=== PATIENT | female | born 1930 | race Caucasian/White ===

== ENCOUNTER 2018-07-12 20:59 | Emergency (ER) | payer MEDICARE, OTHER ==
[~2018-07-12] VITALS: Ht 149.9 cm; Wt 54.0 kg
[~2018-07-12 20:59] MED LIST: ADVAIR 250-501 EACH INH; ALBUTEROL SULF8.5 GM INH; CALCIUM + VITA1 EAC1 PO; CALCIUM + VITA1 EAC2 PO; CARTIA XT240 MG PO; CHERATUSSIN AC118 ML PO; CIPROFLOXACIN500 MG PO; COUMADIN2.5 MG PO; COUMADIN5 MG PO; DETROL LA4 MG PO; DILTIAZEM 24HR180 MG PO; DILTIAZEM 24HR240 MG PO; DUONEB 0.5 MG-33 ML INH; FISH OIL300 MG PO; FUROSEMIDE40 MG PO; ICAPS AREDS SO1 EACH PO; ICAPS TABLET1 EACH PO; INSPIRATION1 EACH MC; IPRAT-ALBUT 0.5-3 ML INH; KEFLEX500 MG PO; LEVOFLOXACIN250 MG PO; MELATONIN1 MG PO; METOLAZONE5 MG PO; METOPROLOL SUC100 MG PO; METOPROLOL SUC200 MG PO; METOPROLOL TAR100 MG PO; METOPROLOL TART50 MG PO; MICRO-K10 MEQ PO; MIRALAX17 GM PO; MONTELUKAST SOD10 MG PO; MUCINEX600 MG PO; MULTI VITAMIN1 EACH PO; MULTIVITAMINS1 EAC7 PO; OMEPRAZOLE20 M1 PO; OXYBUTYNIN CHLOR5 MG PO; PERFOROMIS20 MCG/2 M INH; PLAQUENIL200 MG PO; POTASSIUM CHLO10 ME1 PO; POTASSIUM CHLO20 ME1 PO; PREDNISONE20 MG PO; PREDNISONE5 MG PO; PROLIA60 MG/1 ML SUB-Q; PULMICORT0.5 MG/2 M INH; VENTOLIN HFA18 GM INH; VITAMIN D32000 UNI1 PO; WARFARIN SODIU2.5 MG PO; WARFARIN SODIUM5 MG PO
[2018-07-12] MEDS ORDERED: LASIX40 MG PO (21:16)
--- NOTE | 2018-07-13 13:34 | EKG ---
[facility] [address] [facility] [place] [address] Signed Atrial fibrillation with premature ventricular or aberrantly conducted complexes Rightward axis Incomplete right bundle branch block ST \T\ T wave abnormality, consider lateral ischemia Prolonged QT Abnormal ECG When compared with ECG of 10-MAY-2018 21:20, Atrial fibrillation has replaced Atrial flutter QT has lengthened Confirmed by LATANYA RAJPUT DO ([id number]) on 07/13/2018 1:34:41 PM Electronically Signed By: LATANYA RAJPUT DO 07/13/18 1334 PATIENT NAME: ELODIA GONZALEZ JOSE M Electrocardiogram DATE OF : [birth year] PHYSICIAN: LATANYA RAJPUT DO REPORT #: [id number] REPORT IS CONFIDENTIAL AND NOT TO BE RELEASED WITHOUT AUTHORIZATION
== END 2018-07-12 22:34 | disposition home or self-care (01) ==
LOC: ED 20:59
DX: J45.901 Unspecified asthma with (acute) exacerbation (principal); I50.9 Heart failure, unspecified; Z87.891 Personal history of nicotine dependence; Z88.2 Allergy status to sulfonamides; Z79.899 Other long term (current) drug therapy
CPT/HCPCS: 71045; 93005; 93010; 99285-25

== ENCOUNTER 2018-07-17 19:39 | Inpatient (IN) | payer MEDICARE, OTHER ==
[~2018-07-17] VITALS: Ht 149.9 cm; Wt 48.6 kg
[~2018-07-17 19:39] MED LIST changes: +LASIX40 MG PO
--- OUTSIDE RECORDS SUMMARY | 2018-07-17 19:44 | XMS ---
PreManage Notification: ELODIA GONZALEZ Security Graining Operator Events No recent Security Events currently on file CRITERIA MET - [facility] - 2 Visits in 30 Days CARE PROVIDERS JUVE AGUIRRE Hospitalist 05/11/2018-Current PHONE: Unknown Jose Antonio Gonzales MD Primary Care Current PHONE: Unknown orjaved Case or Director Of Casino Marketing Current PHONE: Unknown Denise GONZALES Current PHONE: Unknown Dot has no Care Guidelines for this patient. Care History Medical/Surgical 05/11/2018 [facility] - Patient is currently established with [facility]. If patient is seen in the ED during business hours. Please contact CHWs at [facility]. Care Recommendation: This patient has had 5 or more Emergency Department visits in the last 12 months.\T\nbsp; Patient requires education on the scope and purpose of the ED as an acute care provider not a Primary Care Provider and should not be utilized for chronic conditions.\T\nbsp; These are guidelines and the provider should exercise clinical judgment when providing care. E.D. VISIT COUNT (12 MO.) 4 [facility]. TOTAL 4 NOTE: Visits indicate total known visits. ED/UCC VISIT TRACKING (12 MO.) 07/17/2018 19:39 [facility] [place] TYPE: Emergency COMPLAINT: - SOB 07/12/2018 20:59 [facility] [place] TYPE: Emergency COMPLAINT: - ASTHMA DIAGNOSES: - Shortness of breath - Other organic section technical lead (current) drug therapy - Allergy status to sulfonamides status - Unspecified asthma with (acute) exacerbation - Heart failure, unspecified - Personal history of nicotine dependence 05/10/2018 21:03 [facility] [place] TYPE: Emergency COMPLAINT: - SOB 04/18/2018 14:11 [facility] [place] TYPE: Emergency COMPLAINT: - SWOLLEN EXTREMITIES,NON INJURY DIAGNOSES: - Unspecified atrial fibrillation - long-term (current) use of anticoagulants - Allergy status to sulfonamides status - Other snf (current) drug therapy - Heart failure, unspecified - Dyspnea, unspecified - Chronic obstructive pulmonary disease, unspecified INPATIENT VISIT TRACKING (12 MO.) 05/10/2018 21:04 [facility] [place] TYPE: Medical Surgical COMPLAINT: - ACUTE ON CHRONIC DIASTOLIC DIAGNOSES: - Rheumatoid arthritis, unspecified - Unspecified atrial fibrillation - long-term (current) use of inhaled steroids - 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
[2018-07-17] MEDS ORDERED: METOLAZONE5 MG PO (21:25)
[2018-07-18] MEDS ORDERED: COUMADIN2.5 MG PO (07:19)
[2018-07-18] MEDS ORDERED: KETOCONAZOLE120 ML TOP (18:43)
[2018-07-18] MEDS ORDERED: LISINOPRIL2.5 MG PO (18:43)
[2018-07-18] MEDS ORDERED: IPRAT-ALBUT 0.5-3 ML INH (18:46)
--- NOTE | 2018-07-18 23:18 | EKG ---
[facility] [address] [facility] [place] [address] Signed Atrial fibrillation Rightward axis Incomplete right bundle branch block Cannot rule out Anterior infarct , age undetermined ST \T\ T wave abnormality, consider inferolateral ischemia Abnormal ECG When compared with ECG of 12-JUL-2018 21:04, QT has shortened Confirmed by DERRICK ANTONIO MD ([id number]) on 07/18/2018 11:18:09 PM Electronically Signed By: DERRICK ANTONIO MD 07/18/18 2318 PATIENT NAME: ELODIA GONZALEZ JOSE M Electrocardiogram DATE OF : [birth year] PHYSICIAN: DERRICK ANTONIO MD REPORT #: [id number] REPORT IS CONFIDENTIAL AND NOT TO BE RELEASED WITHOUT AUTHORIZATION
--- NOTE | 2018-07-19 12:09 | CONS ---
[facility] [address] [place], [place] [address] Signed DATE OF CONSULTATION: 07/17/2018 TIME: 10:45 p.m. CONSULTING PHYSICIAN: Gabo Garsia MD REQUESTING PHYSICIAN: Dr. Conner. PROBLEM: Need for central venous access for right lower lobe pneumonia and sepsis. 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 She worked at [employer] for over 31 years. She has long since retired. She presented to the emergency room with sepsis including hypotension and tachycardia, found on chest x-ray to have a right lower lobe pneumonia. Pressors and other agents are anticipated for her care. She is noted to have atrial fibrillation and is chronically anticoagulated with Coumadin. Her INR exceeds 3.5 by report. PAST MEDICAL HISTORY: Significant primarily for progressive frailty. She remains alert and oriented, however. She is accompanied by her son, Clifford. REVIEW OF SYSTEMS: She has some shortness of breath, but no abdominal pain. She has had no hemoptysis. PHYSICAL EXAMINATION: GENERAL: Impressively frail and tiny 88-year-old white woman who looks to be alert and oriented despite her clinical evidence of sepsis. She is unable to move her head to the right or left any degree. She is markedly cachectic. Clavicles and muscles of the neck are easily demonstrated. She has no hoarseness. ABDOMEN: With poor abdominal tone, but no sign of tenderness. 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 Chest x-ray is reviewed, showing a right lower lobe pneumonia. No sign of pneumothorax. ASSESSMENT: Central venous catheterization has been requested by Dr. Conner for pressor agents and Electronically Signed By: GABO GARSIA MD 07/19/18 1209 PATIENT NAME: ELODIA GONZALEZ CONSULTATION DATE OF : [birth year] REPORT #: [id number] PHYSICIAN: GABO GARSIA MD PCP: JUVE AGUIRRE MD REPORT IS CONFIDENTIAL AND NOT TO BE RELEASED WITHOUT AUTHORIZATION [facility] [address] [place], [place] [address] Signed other interventions. This may be challenging considering her elevated INR for a subclavian approach and even a jugular approach given her inability to move her neck to the right or left. The risks of bleeding, infection, and so forth were reviewed with the patient and her son who accompanies her. They understand and wished to proceed. MD MARTINE Hedrick/COREY /[id number] cc: MD Keshia Oneill MD Lohith Veerappa Reddy, MD Copies: JUVE AGUIRRE MD, KELLY DEAN MD REDDY, LOHITH VEERAPPA MD ~ Electronically Signed By: GABO GARSIA MD 07/19/18 1209 PATIENT NAME: ELODIA GONZALEZ JOSE M CONSULTATION DATE OF : [birth year] REPORT #: [id number] PHYSICIAN: GABO GARSIA MD PCP: JUVE AGUIRRE MD REPORT IS CONFIDENTIAL AND NOT TO BE RELEASED WITHOUT AUTHORIZATION
--- NOTE | 2018-07-19 12:09 | OR ---
[facility] [address] [place], [place] [address] Signed DATE OF OPERATION: 07/17/2018 SURGEON: Gabo Garsia MD PREOPERATIVE DIAGNOSES: 1. Sepsis related to right lower lobe pneumonia. 2. Cachexia. 3. Excessive anticoagulation with Coumadin, INR greater than 3.5. POSTOPERATIVE DIAGNOSES: 1. Sepsis related to right lower lobe pneumonia. 2. Cachexia. 3. Excessive anticoagulation with Coumadin, INR greater than 3.5. PROCEDURE: Right internal jugular central venous catheterization (Arrow Blue Tip triple-lumen catheter placement). ANESTHESIA: 1% lidocaine. INDICATIONS: This 88-year-old white woman has sepsis with hypotension related to right lower lobe pneumonia. She is markedly frail and thin. She is unable to move her face to the right or left for reasons that are not entirely clear. The risks of bleeding, infection, pneumothorax, and so forth were reviewed with her and her son who attends to her (Clifford Gonzalez). She understands as does he and they wished to proceed. FINDINGS: Initial puncture of the right neck demonstrated arterial blood consistent with carotid puncture, however it was easily identified and pressure applied to the area without hematoma or other problem. Subsequent access attempt showed dark, nonpulsatile blood consistent with the right internal jugular vein. A flexible Arrow Blue Tip triple-lumen catheter was passed without problem. Aspiration on the distal port on completion of procedure showed dark, nonpulsatile blood. A postprocedure chest x-ray is pending. DESCRIPTION OF PROCEDURE: The patient was placed in mild Trendelenburg position. Her neck and clavicle area prepared with chlorhexidine solution and draped sterilely. Lidocaine 1% was injected over the sternocleidomastoid muscle. Palpation on the medial aspect of the right Electronically Signed By: GABO GARSIA MD 07/19/18 1209 PATIENT NAME: ELODIA GONZALEZ OPERATIVE REPORT DATE OF : [birth year] REPORT #: [id number] PHYSICIAN: GABO GARSIA MD PCP: JOHN AGUIRRE MD REPORT IS CONFIDENTIAL AND NOT TO BE RELEASED WITHOUT AUTHORIZATION [facility] [address] [place], [place] [address] Signed sternocleidomastoid muscle demonstrated the carotid. Using a Seldinger technique laterally and through the substance of the sternocleidomastoid muscle, careful puncture was undertaken noting blood that initially appeared somewhat dark. Upon removal of the syringe from the needle, pulsatile bleeding was noted consistent with carotid puncture and on that basis the needle was carefully removed and pressure applied to the area for approximately 5 minutes. Re-examination showed no sign of expanding hematoma or other issue. Another attempt was made with adjustment of the needle ultimately finding the right jugular vein. Dark, nonpulsatile blood was noted. A flexible J-wire was passed down the needle and the needle was removed. The site was incised and tied with a blue dilator and a previously inspected and irrigated Arrow Blue Tip triple-lumen catheter passed over the wire without problem. The wire was removed. Aspiration on the distal port showed dark, nonpulsatile blood. That site was flushed with sterile saline, withdrawn, and secured to the skin with nylon suture. An anti-infective disk was applied as was an OpSite. A postprocedure chest x-ray is pending. Blood loss in aggregate was about 10 mL. MD MARTINE Hedrick/MODL /[id number] cc: MD John Easley MD Kelly Dean Pridgen, MD Copies: DERRICK ANTONIO MD, MALCOLM MD PRIDGEN, KELLY DEAN MD ~ Electronically Signed By: GABO GARSIA MD 07/19/18 1209 PATIENT NAME: ELODIA GONZALEZ JOSE M OPERATIVE REPORT DATE OF : [birth year] REPORT #: [id number] PHYSICIAN: GABO GARSIA MD PCP: JOHN AGUIRRE MD REPORT IS CONFIDENTIAL AND NOT TO BE RELEASED WITHOUT AUTHORIZATION
[2018-07-24] MEDS ORDERED: LEVOFLOXACIN250 MG PO (10:27)
== END 2018-07-24 14:25 | disposition home or self-care (01) | DRG 871 ==
LOC: ED 19:39 → CCU 22:26 → MS 07-21 18:26
PROVIDERS: ADMIT Internal Medicine
PROC: 02HV33Z Insertion of Infusion Device into Superior Vena Cava, Percutaneous Approach (ICD-10-PCS; principal; 2018-07-17)
DX: A41.01 Sepsis due to Methicillin susceptible Staphylococcus aureus (principal); R65.21 Severe sepsis with septic shock; I50.33 Acute on chronic diastolic (congestive) heart failure; J15.6 Pneumonia due to other Gram-negative bacteria; R64 Cachexia; J44.0 Chronic obstructive pulmonary disease with (acute) lower respiratory infection; J96.11 Chronic respiratory failure with hypoxia; D68.32 Hemorrhagic disorder due to extrinsic circulating anticoagulants; I95.9 Hypotension, unspecified; I11.0 Hypertensive heart disease with heart failure; I35.0 Nonrheumatic aortic (valve) stenosis; I48.2 Chronic atrial fibrillation; Z79.01 Long term (current) use of anticoagulants; M06.9 Rheumatoid arthritis, unspecified; J47.9 Bronchiectasis, uncomplicated; A41.53 Sepsis due to Serratia; R13.12 Dysphagia, oropharyngeal phase; E80.6 Other disorders of bilirubin metabolism; R53.81 Other malaise; Z66 Do not resuscitate; Z99.81 Dependence on supplemental oxygen; Z79.52 Long term (current) use of systemic steroids; Z87.891 Personal history of nicotine dependence; T45.515A Adverse effect of anticoagulants, initial encounter
CPT/HCPCS: 36415; 71045; 80048; 80053; 80202; 83605; 83735; 83880; 84484; 85025; 85610; 85730; 87040; 87070; 87077; 87186; 87205; 87449; 87502; 87899; 92526; 92610; 93005; 93010; 94640; 94667; 94668; 96365; 96367; 96375; 97110; 97116; 97162; 97167; 97530; 97535; 99285-25; J0456; J0692; J1720; J2370; J2405; J2543; J3370; J3475; J7040; J7060; J7120; J7512

== ENCOUNTER 2018-09-13 19:14 | Inpatient (IN) | payer MEDICARE, OTHER ==
[~2018-09-13] VITALS: Ht 149.9 cm; Wt 43.8 kg
--- OUTSIDE RECORDS SUMMARY | ~2018-09-13 | XMS | Encounter Summary ---
Demographics + + + | Address | [address] | | | [place] [address] | + + + | Home Phone | | + + + | Preferred Language | Unknown | + + + | Marital Status | | + + + | Taoism Affiliation | 1077 | + + + | Race | Unknown | + + + | Ethnic Group | Unknown | + + + Author + + + | Author | [facility] | | | and [place] | + + + | Organization | [facility] | | | and [...] Team Providers + +------+ + | Care Lumber Puller Name | Role | Phone | + [...] [address] | | | | | [phone] | [place] [address] | | +--------+ + + + + [...] Description | +--------+---------+ + + + | 09/29/ | Office | Pulmonology | Vikram Patel, | | | 2018 | Visit | | MD Mohamud [place] | | | | | | Balw[place], Level II | | | | | | [place] | | | | | | [address] | | | | | | | [...] for this | | | e | 2009 PST | | procedure are in the | | | | | | results section. | + +--------+ + + + in this encounter Results XR Chest AP Portable (07/17/20182009) + + + | Narrative | Performed [...]
--- OUTSIDE RECORDS SUMMARY | ~2018-09-13 | XMS | Encounter Summary ---
Demographics + + + | Address | [address] | | | [place] [address] | + + + | Home Phone | | + + + | Preferred Language | Unknown | + + + | Marital Status | | + + + | Sikhism Affiliation | 1077 | + + + | Race | Unknown | + + + | Ethnic Group | Unknown | + + + Author + + + | Author | [facility] [employer] | + + + | Organization | [facility] [facility] | + + + | Address [...] Team Providers + +------+ + | Care Securities Broker Name | Role | Phone | + [...] + + | 08/16/ | Office | [facility] | Minerva Mosher, | Chronic atrial | | 2019 | Visit | Cardiology [place] | [address] | fibrillation (HCC) | | | | [address] | [address] Blanco, | (Primary Dx); | | | | [facility] [address] | [place] [address] | Rheumatoid arthritis | | | | [place] [address] | [phone] | involving multiple | | | | [phone] | | sites with positive | | | | | | rheumatoid factor | | | | | | (HCC); Essential | | | | | | hypertension; | | | | | | Chronic diastolic | | | | | | congestive heart | | | | | | failure ([facility]); | | | | | | Severe [...] to use metolazone. Previously was admitted to [facility] on May 10-2017 secondary to [...] Patient was seen after being discharged from [facility] due to decompensated hermes estive heart failure. [...] by mouth 2 (two) times daily. Nebulizer (expert medical writer) 1 each by Does not apply route [...] Reactions Diphenhydramine Hallucinations Developed hallucinations when taking vlxk-usi-xkkgcdi sleep medications with diphenhydram ine Oxybutynin Hallucinations [...] problems. 1. Chronic diastolic congestive heart failure [facility] class III, stage C. Currently euvolemic. 2. Symptomatic severe aortic stenosis. 3. Significant visual hallucination. Improved. 4. Significant pulmonary disease with significant decrease in DLCO. Patient is on home O2 a t nighttime. 5. Recent bacterial pneumonia with recurrent worsening cough. 6. 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 7. Chronic atrial fibrillation [...] | | | | | | [place] [address] | | | | | | [phone] | | | | | | | [...]
--- OUTSIDE RECORDS SUMMARY | ~2018-09-13 | XMS | Encounter Summary ---
Demographics + + + | Address | [address] | | | [place] [address] | + + + | Home Phone | | + + + | Preferred Language | Unknown | + + + | Marital Status | | + + + | Judaism Affiliation | 1077 | + + + | Race | Unknown | + + + | Ethnic Group | Unknown | + + + Author + + + | Author | [facility] | | | and [place] | + + + | Organization | [facility] | | | and [...] Team Providers + +------+ + | Care Honest John Rocket Crew Member Name | Role | Phone | + +------+ + | John Barbosa MD | PCP | | + +------+ + Encounter Details +--------+ + + + + | Date | Type | Department | Care Team | Description | +--------+ + + + + | 07/12/ | Imaging | [facility] | Provider, | | | 2019 | Exam | [facility] EXTER[facility] | MD [address] | | | | | IMAGING | [address] | | | | | [phone] | [place] [address] | | +--------+ + + + + [...] 2018 | Visit | | MD Mohamud [place] | | | | | | Balwinder, Level II | | | | | | [place] | | | | | | [phone] | | | | | | | | +--------+---------+ + + + as of this encounter Procedures + +--------+ + + + | Procedure Name | Priori | Date/Time | Associated Diagnosis | Comments | | | ty | | | | + +--------+ + + + | XR CHEST AP PORTABLE | Routin | 07/12/2018 | | Results for this | | | e | 2140 PST | | procedure are in the | | | | | | results section. | + +--------+ + + + in this encounter Results XR Chest AP Portable (07/12/2018 2140) + + + | Narrative | Performed [...]
--- OUTSIDE RECORDS SUMMARY | ~2018-09-13 | XMS | Encounter Summary ---
Demographics + + + | Address | [address] | | | [place] [address] | + + + | Home Phone | | + + + | Preferred Language | Unknown | + + + | Marital Status | | + + + | Gnosticist Affiliation | 1077 | + + + | Race | Unknown | + + + | Ethnic Group | Unknown | + + + Author + + + | Author | [facility] | | | and [place] | + + + | Organization | [facility] | | | and [...] Team Providers + +------+ + | Care Land Management Forester Name | Role | Phone | + +------+ + | John Barbosa MD | PCP | | + +------+ + Encounter Details +--------+ + + + + | Date | Type | Department | Care Team | Description | +--------+ + + + + | 07/27/ | Ancillary | [facility] | Provider, | | | 2019 | Orders | MED CTR EXTERNAL | MD [address] | | | | | IMAGING | [address] | | | | | [phone] | [place] [address] | | +--------+ + + + + [...] | 2018 | Visit | | MD Oneida Jacobo | | | | | | [place], Level II | | | | | | [place] | | | | | | [address] | | | | | | | | +--------+---------+ + + + as of this encounter Results XR Chest AP Portable (07/17/20183) + + + | Narrative | Performed [...] | | | + +---------+ + + XR Chest AP Portable (07/17/20182009) + + [...] | | | + +---------+ + + XR Chest AP Portable (07/12/20182139) + + + | Narrative | Performed [...] | | | + +---------+ + + XR Chest AP Portable (05/10/20182209) + + + | Narrative | Performed [...] | | | + +---------+ + + XR Chest PA or AP (04/18/2018 1540) + + + | Narrative | Performed [...]
--- OUTSIDE RECORDS SUMMARY | ~2018-09-13 | XMS | Encounter Summary ---
Demographics + + + | Address | [address] | | | [place] [address] | + + + | Home Phone | | + + + | Preferred Language | Unknown | + + + | Marital Status | | + + + | Sikhism Affiliation | 1077 | + + + | Race | Unknown | + + + | Ethnic Group | Unknown | + + + Author + + + | Author | [facility] | | | and [place] | + + + | Organization | [facility] | | [...] Team Providers + +------+ + | Care Cook Dessert Name | Role | Phone | + [...] [address] | | | | | [phone] | [place] [address] | | +--------+ + + + + [...] 2018 | Visit | | MD Mohamud [place] | | | | | | Balwinder, Level II | | | | | | [place] | | | | | | [address] | | | | | | | [...]
--- OUTSIDE RECORDS SUMMARY | ~2018-09-13 | XMS | Clinical Summary ---
Demographics + + + | Address | [address] | | | [place] [address] | + + + | Home Phone | | + + + | Preferred Language | Unknown | + + + | Marital Status | Single | + + + | Quaker Affiliation | Unknown | + + + | Race | Unknown | + + + | Ethnic Group | Other Race | + + + Author + + + | Author | [facility] | + + + | Organization | [facility] | + + + | Address | Unknown | + + + | Phone | Unavailable | + + + Care Team Providers + +------+ + | Care Digital Associate Name | Role | Phone | + +------+ + PP | Unavailable | + +------+ + Source Comments TYLER is fully live on both [facility] Ambulatory and [facility] InPatient.[facility] Allergies Not on File Current Medications Not [...] | Medica | +- | [address] | | | RE A & | | re | [phone] | [place] [address] | | | B | | | [...] | | al/Fam | | 1930 | [phone] | [place] [address] | | | [place] | | | [address] | | + +--------+ +--------+ + +"
--- OUTSIDE RECORDS SUMMARY | ~2018-09-13 | XMS | Encounter Summary ---
Demographics + + + | Address | [address] | | | [place] [address] | + + + | Home Phone | | + + + | Preferred Language | Unknown | + + + | Marital Status | | + + + | Holiness Affiliation | 1077 | + + + | Race | Unknown | + + + | Ethnic Group | Unknown | + + + Author + + + | Author | [facility] | + + + | Organization | [facility] | + + + | Address [...] Team Providers + +------+ + | Care Textile Designer Name | Role | Phone | + [...] records/ labs) | | | | [address] | | | | | | [place] | | | | | | [address] | | | | | | [phone] | | | +--------+ + + + [...] | | | | | | [place] [address] | | | | | | [phone] | | | | | | | | +--------+---------+ + + + as of this encounter Visit Diagnoses Not on filein this encounter"
--- OUTSIDE RECORDS SUMMARY | ~2018-09-13 | XMS | Encounter Summary ---
Demographics + + + | Address | [address] | | | [place] [address] | + + + | Home Phone | | + + + | Preferred Language | Unknown | + + + | Marital Status | | + + + | Yazidi Affiliation | 1077 | + + + | Race | Unknown | + + + | Ethnic Group | Unknown | + + + Author + + + | Author | [facility] | | | and [place] | + + + | Organization | [facility] | | [...] Team Providers + +------+ + | Care Roving Machine Operator Name | Role | Phone | [...] [address] | | | | | [phone] | [place] [address] | | +--------+ + + + + [...] 2018 | Visit | | MD Mohamud [place] | | | | | | Balwinder, Level II | | | | | | [place] | | | | | | [address] | | | | | | | [...]
--- OUTSIDE RECORDS SUMMARY | ~2018-09-13 | XMS | Clinical Summary ---
Demographics + + + | Address | [address] | | | [place] [address] | + + + | Home Phone | | + + + | Preferred Language | Unknown | + + + | Marital Status | | + + + | Evangelical Affiliation | 1077 | + + + [...] Team Providers + +------+ + | Care [place] Leverman Name | Role | Phone | + +------+ + | John Barbosa MD | PP | | + +------+ + Allergies + + + + + + | Active Allergy | Reactions | Severity | Noted | Comments | | | | | Date | | + + + + + + | Diphenhydramine | Other (See Comments) | High | 10/15/19 | Hallucinations | | | | | 17 | | + + + + + + | Oxybutynin | Other (See Comments) | High | 04/27/20 | Hallucinations | | | | | 17 | | + + + + + + | Sulfa Antibiotics | Nausea Only, Other | Low | 06/02/20 | Headache | | | (See Comments) | | 12 | | + + + + + + Current Medications + + + +---------+------+------+-------+ | Prescription | Sig. | Disp. | Refills | Star | End | Statu | | | | | | t | Date | s | | | | | | Date | | | + + + +---------+------+------+-------+ | predniSONE | Take 5 mg by mouth | | | 02/25 | | Activ | | (DELTASONE) 5 mg | Daily. | | | 08/16 | | e | | tablet | | | | 12 | | | + + + +---------+------+------+-------+ | CARTIA XT 240 MG | Take 240 mg by mouth | | | 01/0 | | Activ | | 24 hr capsule | Daily. | | | 03/16 | | e | | | | | | 17 | | | + + + +---------+------+------+-------+ | furosemide (LASIX) | Take 40 mg by mouth | | | | | Activ | | 40 mg tablet | Daily. | | | | | e | + + + +---------+------+------+-------+ | Multiple | Take 1 capsule by | | | | | Activ | | Vitamins-Minerals | mouth 2 times daily. | | | | | e | | (ICAPS AREDS 2) CAPS | | | | | | | + + + +---------+------+------+-------+ | metoprolol | Take 200 mg by mouth | | | 11/26 | | Activ | | succinate | Daily. | | | 01/13 | | e | | (TOPROL-XL) 200 mg | | | | 17 | | | | ER tablet | | | | | | | + + + +---------+------+------+-------+ | denosumab (PROLIA) | Inject 60 mg under | | | | | Activ | | 60 mg/mL injection | the skin Every 6 | | | | | e | | | months. | | | | | | + + + +---------+------+------+-------+ | warfarin | Take 2.5 mg by mouth | | | | | Activ | | (COUMADIN) 2.5 mg | Daily. | | | | | e | | tablet | | | | | | | + + + +---------+------+------+-------+ | acetaminophen | Take 500 mg by mouth | | | | | Activ | | (TYLENOL) 500 mg | Daily as needed for | | | | | e | | tablet | Pain. | | | | | | + + + +---------+------+------+-------+ | | Take 1 tablet by | | | | | Activ | | dextromethorphan-gua | mouth Twice daily | | | | | e | | ifenesin (MUCINEX | as needed. | | | | | | | DM) 30-600 mg per ER | | | | | | | | tablet | | | | | | | + + + +---------+------+------+-------+ | melatonin 1 mg | Take 1 mg by mouth | | | | | Activ | | TABS | nightly. | | | | | e | + + + +---------+------+------+-------+ | Cholecalciferol | Take 2,000 Units by | | | | | Activ | | (VITAMIN D-3) 2000 | mouth Daily. | | | | | e | | units CAPS | | | | | | | + + + +---------+------+------+-------+ | | Take 3 ml in | 540 mL | 11 | 04/2 | | Activ | | albuterol-ipratropiu | nebulizer every 4 | | | 0/20 | | e | | m (DUONEB) 2.5-0.5 | hours as needed for | | | 18 | | | | mg/3 mL | shortness of breath. | | | | | | | SOLNIndications: | Lifetime. Dx: J44.9 | | | | | | | Uncomplicated severe | | | | | | | | persistent asthma | | | | | | | + + + +---------+------+------+-------+ | famotidine | Take 1 tablet by | | | 08/0 | | Activ | | (PEPCID) 40 MG | mouth Daily. | | | 2/20 | | e | | tablet | | | | 18 | | | + + + +---------+------+------+-------+ | metOLazone | Take 1 tablet by | | | 07/0 | | Activ | | (ZAROXOLYN) 5 MG | mouth nightly. 1-2 | | | 120 | | e | | tablet | tablets | | | 18 | | | + + + +---------+------+------+-------+ | potassium chloride | Take 1 tablet by | | | 07/3 | | Activ | | 20 mEq CR tablet | mouth 2 times daily. | | | 0/20 | | e | | | | | | 18 | | | + + + +---------+------+------+-------+ | VENTOLIN HFA 108 | Inhale 2 puffs into | 1 | 3 | 08/2 | | Activ | | (90 Base) MCG/ACT | the lungs every 4 | Inhaler | | 7/20 | | e | | inhaler | hours as needed for | | | 18 | | | | | Wheezing or | | | | | | | | Shortness of Breath. | | | | | | + + + +---------+------+------+-------+ | PERFOROMIST 20 | USE 1 VIAL IN | 120 | 3 | 01/0 | | Activ | | MCG/2ML nebulizer | NEBULIZER EVERY 12 | vial | | 2/20 | | e | | solution | HOURS | | | 19 | | | + + + +---------+------+------+-------+ | budesonide | USE 1 VIAL IN | 120 | 3 | 01/0 | | Activ | | (PULMICORT) 0.5 mg/2 | NEBULIZER EVERY 12 | vial | | 2/20 | | e | | mL nebulizer | HOURS | | | 19 | | | | solutionIndications: | | | | | | | | Severe persistent | | | | | | | | asthma without | | | | | | | | complication | | | | | | | + + + +---------+------+------+-------+ Active Problems + + + | Problem | Noted Date | + + + | Dyspnea on exertion | 09/02/2017 | + + + | Severe aortic stenosis | 03/14/2017 | + + + + + | Last Assessment & Plan: | + + + + + | RV dysfunction | 03/14/2017 | + + + | Tricuspid regurgitation | 03/14/2017 | + + + | CHF (congestive heart failure) (HCC) | 02/20/2016 | + + + | Uncomplicated severe persistent asthma | 01/09/2016 | + + + | Hypertension | 01/10/2014 | + + + + + | Overview: Last Assessment & Plan: HTN, controlled, continue | | current meds at current dose (diltiazem, furosemide, metoprolol). | | Labs reviewed with patient.Lab, 06/19/2015: Trop-T: <0.010, | | BNP: 870 AST/ALT: 63/63, Alb: 4.0, K: | | 4.0, BUN/Cr: 17/0.6, glu: 215, M.1 | | INR: 2.1, WBC: 6.0, H/H: 14.3/44.5, plt: 210 | | ABG (O2 at 2L/min): pH: 7.43, pO2: 76, pCO2: 38, O2 sat: | | 95% Lab, 06/20/2015: T Chol: 148, LDL-Chol: 66, HDL-Chol: 68, | | [facility], 07/02/2015: Liver enzymes NML, K: 4.9, BUN/Cr: | | 28/0.8 (GFR 67), glu: 120 BNP: 237, | | TSH: 1.13, WBC: 16.5, H/H: 15.1/46.3, plt: 168 | + + + +---+ | Pulmonary disease | | + +---+ + + | Last Assessment & Plan: | + + + +---+ | TIREDNESS | | + +---+ | BRONCHIECTASIS | | + +---+ | WEIGHT LOSS, ABNORMAL | | + +---+ | ATRIAL FIBRILLATION | | + +---+ | Rheumatoid arthritis (HCC) | | + +---+ + + | Overview: On chronic steroids. | + + + +---+ | SINUS BRADYCARDIA | | + +---+ Resolved Problems + + + + | Problem | Noted | Resolved | | | Date | Date | + + + + | Obstructive sleep apnea | 03/14/20 | | | | 17 | 7 | + + + + | Shortness of breath on exertion | 10/10/19 | | | | 14 | 6 | + + + + | Bronchiectasis with acute exacerbation (HCC) | | | | | | 5 | + + + + | Obstructive lung disease (HCC) | | | | | | 7 | + + + + Encounters +--------+ + + + + | Date | Type | Specialty | Care Team | Description | +--------+ + + + + | 07/27/ | Ancillary | | Provider, | | | 2019 | Orders | | Evaristo, | | +--------+ + + + + | 07/17/ | Imaging | | Provider, | | | 2018 | Exam | | Evaristo, | | +--------+ + + + + | 07/17/ | Imaging | | Provider, | | | 2019 | Exam | | Historical, | | +--------+ + + + + | 07/12/ | Imaging | | Provider, | | | 2019 | Exam | | Historical, MD | | +--------+ + + + + | 06/28/ | Refill | | Vikram Patel, | Medication Refill | | 2019 | | | MD | | +--------+ + + + + from Last 3 Months Immunizations + + + + | Name | Dates Previously Given | Next Due | + + + + | INFLUENZA 65 Y OR >, | 04/11/2017, 04/05/2016, 04/13/2015 | | | TRIVALENT HIGH-DOSE | | | + + + + | INFLUENZA PF 18 Y OR | 04/03/2014, 03/27/2013, 04/07/2012, | | | >,TRIVALENT | 02/06/2012 | | | RECOMBINANT | | | + + + + | PNEUMOCOCCAL | 04/25/2014 | | | CONJUGATE 13-VALENT | | | | (PCV13) | | | + + + + | PNEUMOCOCCAL | 10/06/2010 | | | POLYSACCHARIDE | | | | 23-VALENT (PPSV23) | | | + + + + | ZOSTER, 1 DOSE | 05/27/2012 | | | (ZOSTAVAX) | | | + + + + Family History + + +------+ + | Medical History | Relation | Name | Comments | + + +------+ + | Diabetes | Brother | | | + + +------+ + | Other (see comment) | Brother | | kalenver | + + +------+ + | Cancer | Father | | pancreatic | + + +------+ + | Asthma | Mother | | | + + +------+ + | Other (see comment) | Mother | | emphysema/renal cell carcinoma/renal | | | | | disease | + + +------+ + | Emphysema | Other | | family hx of | + + +------+ + + +------+ + + | Relation | Name | Status | Comments | + +------+ + + | Brother | | | | + +------+ + + | Brother | | | | + +------+ + + | Father | | | | + +------+ + + | Mother | | | | + +------+ + + | Other | | | | + +------+ + + Social [...] | | | + +---+---+---+ + + | Tobacco Cessation: Counseling Given: No | + + + + +---------+ + | Alcohol [...] + + + | Blood Pressure | 110/78 | 02/03/20181543 PDT | + + + + | Pulse | 90 | 02/03/20181543 PDT | + + + + | Temperature | 36.7 C (98 F) | 02/20/20161052 PDT | + + + + | Respiratory Rate | 16 | 02/20/2016 1053 PDT | + + + + | Oxygen Saturation | 93% | 02/03/20181543 PDT | + + + + | Inhaled Oxygen | - | - | | Concentration | | | + + + + | Weight | 49.2 kg (108 lb 7.5 | 02/03/20181543 PDT | | | oz) | | + + + + | Height | 149.9 cm (4' 11") | 02/03/20181543 PDT | + + + + | Body Mass Index | 21.91 | 02/03/20181543 PDT | + + + + Plan of Treatment +--------+---------+ + + + | Date | Type | Specialty | Care Team | Description | +--------+---------+ + + + | 09/29/ | Office | | Vikram Patel, | | | 2019 | Visit | | MD Oneida Jacobo | | | | | | Balwinder, Level II | | | | | | [place] | | | | | | [address] | | | | | | | | +--------+---------+ + + + + + + + + | Health Maintenance | Due Date | Last Done | Comments | + + + + + | Vaccine: Zoster (2 | | 05/27/2012, 09/13/2011 | | | of 3) | 3 | | | + + + + + | Adult Annual | | | | | Wellness Visit | 5 | | | + + + + + | Vaccine: | | 03/09/2012 | | | Dtap/Tdap/Td (2 - | 2 | | | | Td) | | | | + + + + + | Vaccine: | Completed | 04/25/2014, 10/06/2010 | | | Pneumococcal 65+ | | | | | Low/Medium Risk | | | | + + + + + | Vaccine: Influenza | Completed | 03/07/2018, 04/11/2017, | | | | | 03/30/2017, Additional history | | | | | [...] section. | + +--------+ + + + from Last 3 Months Results XR Chest AP Portable (07/17/2018 2245)Only the most recent of 3 results within the time per iod is included. + + + | Narrative | Performed [...] | | | + +---------+ + + from Last 3 Months Insurance + +--------+ +--------+ +---------+ | Payer | Benefi | Subscriber | Type | Phone | Address | | | t Plan | ID | | | | | | / | | | | | | | Group | | | | | + +--------+ +--------+ +---------+ | MEDICARE | MEDICA | [id number] | Medica | [phone] | | | | RE | | re | [phone] | | | | PART A | | | | | | | AND B | | | | | + +--------+ +--------+ +---------+ | MEDICARE SUPPLEMENT | MEDICA | [id number] | Indemn | [phone] | | OTHER | RE | | ity | [phone] | | | | SUPPLE | | | | | | | MENT | | | | | | | OTHER | | | | | + +--------+ +--------+ +---------+ + +--------+ +--------+ + + | Guarantor Name | Accoun | Relation to | Date | Phone | Billing Address | | | t Type | Patient | of | | | | | | | | | | + +--------+ +--------+ + + | ISABEL GONZALEZ | Person | Self [birth year] | Home: | [address] | | | al/Fam | | 1930 | [phone] | [place] | | | [place] | | | [phone] | [address] | + +--------+ +--------+ + +
--- OUTSIDE RECORDS SUMMARY | ~2018-09-13 | XMS | Encounter Summary ---
Demographics + + + | Address | [address] | | | [place] [address] | + + + | Home Phone | | + + + | Preferred Language | Unknown | + + + | Marital Status | | + + + | Religion Affiliation | 1077 | + + + | Race | Unknown | + + + | Ethnic Group | Unknown | + + + Author + + + | Author | [facility] | | | and [place] | + + + | Organization | [facility] | | | and [...] Team Providers + +------+ + | Care Color Corrector Name | Role | Phone | + [...] [address] | | | | | [phone] | [place] [address] | | +--------+ + + + + [...] 2018 | Visit | | MD Mohamud Butler | | | | | | Balwinder, Level II | | | | | | [place] | | | | | | [address] | | | | | | | [...]
--- OUTSIDE RECORDS SUMMARY | ~2018-09-13 | XMS | Encounter Summary ---
Demographics + + + | Address | [address] | | | [place] [address] | + + + | Home Phone | | + + + | Preferred Language | Unknown | + + + | Marital Status | | + + + | Holiness Affiliation | 1077 | + + + | Race | Unknown | + + + | Ethnic Group | Unknown | + + + Author + + + | Author | [facility] | + + + | Organization | [facility] | + + + | Address [...] Team Providers + +------+ + | Care Fish Boning Machine Feeder Name | Role | Phone | + [...] 2019 | on Only | Cardiology Anastasiya Viarmontes CMA | records/ labs) | | | | [address] | | | | | | [place] | | | | | | [address] | | | | | | [phone] | | | +--------+ + + + [...] | | | | | | [place] [address] | | | | | | [phone] | | | | | | | | +--------+---------+ + + + as of this encounter Visit Diagnoses Not on filein this encounter"
--- OUTSIDE RECORDS SUMMARY | ~2018-09-13 | XMS | Encounter Summary ---
Demographics + + + | Address | [address] | | | [place] [address] | + + + | Home Phone | | + + + | Preferred Language | Unknown | + + + | Marital Status | | + + + | Catholic Affiliation | 1077 | + + + | Race | Unknown | + + + | Ethnic Group | Unknown | + + + Author + + + | Author | [facility] | | | and [place] | + + + | Organization | [facility] | | | [...] Team Providers + +------+ + | Care Oracle Ebs Developer Name | Role | Phone | [...] [address] | | | | | [phone] | [place] [address] | | +--------+ + + + + [...] Jacobo | | | | | | [place], Level II | | | | | | [place] | | | | | | [address] | | | | | | | [...]
--- OUTSIDE RECORDS SUMMARY | ~2018-09-13 | XMS | Encounter Summary ---
Demographics + + + | Address | [address] | | | [place] [address] | + + + | Home Phone | | + + + | Preferred Language | Unknown | + + + | Marital Status | | + + + | Nondenominational Affiliation | 1077 | + + + | Race | Unknown | + + + | Ethnic Group | Unknown | + + + Author + + + | Author | [facility] | + + + | Organization | [facility] [employer] | + + + | Address [...] Team Providers + +------+ + | Care Sybase Developer Name | Role | Phone | [...] [place] | | | | | | [address] | | | | | | [phone] | | | +--------+ + + + [...] | | | | | | [place] [address] | | | | | | [phone] | | | | | | | | +--------+---------+ + + + as of this encounter Visit Diagnoses Not on filein this encounter"
--- OUTSIDE RECORDS SUMMARY | ~2018-09-13 | XMS | Clinical Summary ---
Demographics + + + | Address | [address] | | | [place] [address] | + + + | Home Phone | | + + + | Preferred Language | Unknown | + + + | Marital Status | Single | + + + | Alevism Affiliation | Unknown | + + + | Race | Unknown | + + + | Ethnic Group | Other Race | + + + Author + + + | Author | [facility] | + + + | Organization | [facility] | + + + | Address | Unknown | + + + | Phone | Unavailable | + + + Care Team Providers + +------+ + | Care Director Of Field Sales Name | Role | Phone | + +------+ + PP | Unavailable | + +------+ + Source Comments TYLER is fully live on both [facility] Ambulatory and [facility] Allergies Not on File Current Medications Not [...] | Medica | +- | [address] | | | RE A & | | re | [phone] | [place] [address] | | | B | | | [...] | | al/Fam | | 1930 | [phone] | [place] [address] | | | [place] | | | [phone] | | + +--------+ +--------+ + +"
--- OUTSIDE RECORDS SUMMARY | ~2018-09-13 | XMS | Encounter Summary ---
Demographics + + + | Address | [address] | | | [place] [address] | + + + | Home Phone | | + + + | Preferred Language | Unknown | + + + | Marital Status | | + + + | Hindu Affiliation | 1077 | + + + | Race | Unknown | + + + | Ethnic Group | Unknown | + + + Author + + + | Author | [facility] | | | and [place] | + + + | Organization | [facility] | | [...] Team Providers + +------+ + | Care Security Police Officer Name | Role | Phone | [...] [address] | | | | | [phone] | [place] [address] | | +--------+ + + + + [...] 2018 | Visit | | MD Mohamud Liguori | | | | | | Balwinder, Level II | | | | | | [place] | | | | | | [address] | | | | | | | [...]
--- OUTSIDE RECORDS SUMMARY | ~2018-09-13 | XMS | Encounter Summary ---
Demographics + + + | Address | [address] | | | [place] [address] | + + + | Home Phone | | + + + | Preferred Language | Unknown | + + + | Marital Status | | + + + | Latter Day Affiliation | 1077 | + + + | Race | Unknown | + + + | Ethnic Group | Unknown | + + + Author + + + | Author | [facility] | + + + | Organization | [facility] [employer] [facility] | + + + | Address [...] Team Providers + +------+ + | Care Informatics Nurse Specialist Name | Role | Phone | [...] + + | 08/16/ | Office | [facility] | Minerva Mosher, | Chronic atrial | | 2019 | Visit | Cardiology Florentino | [address] | fibrillation (HCC) | | | | [address] | [address] Blanco, | (Primary Dx); | | | | [facility] [address] | [place] [address] | Rheumatoid arthritis | | | | [place] [address] | [phone] | involving multiple | | | | [phone] | | sites with positive | | | | | | rheumatoid factor | | | | | | (HCC); Essential | | | | | | hypertension; | | | | | | Chronic diastolic | | | | | | congestive heart | | | | | | failure ([facility]); | | | | | | [...] to use metolazone. Previously was admitted to [facility] on May 10-2017 secondary to volu me [...] mouth 2 (two) times daily. Nebulizer (medical records assistant) 1 each by Does not apply route [...] Reactions Diphenhydramine Hallucinations Developed hallucinations when taking poab-wwt-vzbiumd sleep medications with diphenhydram ine Oxybutynin Hallucinations [...] problems. 1. Chronic diastolic congestive heart failure [facility] class III, stage C. Currently euvolemic. 2. Symptomatic severe aortic stenosis. 3. Significant visual hallucination. Improved. 4. Significant pulmonary disease with significant decrease in DLCO. Patient is on home O2 a t nighttime. 5. Recent bacterial pneumonia with recurrent worsening cough. 6. 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 7. Chronic atrial fibrillation [...] | | | | | | [place] [address] | | | | | | [phone] | | | | | | | [...]
--- OUTSIDE RECORDS SUMMARY | ~2018-09-13 | XMS | Clinical Summary ---
Demographics + + + | Address | [address] | | | [place] [address] | + + + | Home Phone | | + + + | Preferred Language | Unknown | + + + | Marital Status | | + + + | Anglican Affiliation | 1077 | + + + | Race | Unknown | + + + | Ethnic Group | Unknown | + + + Author + + + | Author | [facility] | + + + | Organization | [facility] | + + + | Address [...] Team Providers + +------+ + | Care Organic Lab Worker Name | Role | Phone | + [...] taking | | | | | | [id number] | | | | | | sleep [...] 5 | tablet | | /20 | 20 | e | | tablet | mg as needed. Or may | | | 18 | 19 | | | | use twice a week if | | | | | | | | weight or LE edema | | | | | | | | increased. | | | | | | + + +---------+---------+------+------+-------+ | lisinopril | Take 2.5 mg by mouth | | | | 07/29 | Disco | | (ZESTRIL) 2.5 MG | daily. | | | | | ntinu | | tablet | | | | | 19 | ed | + + +---------+---------+------+------+-------+ Active Problems + [...] CVR, on warfarin, | | managed by [facility]. 85yo [place], here | | [...] LVEF 60-65%.Last Echo, | | 06/19/2015 ([facility]): biplane LVEF 61%, marked bi-Atrial | | [...] Assessment & Plan: Hx COPD, managed by Plant And Machinery ValuerDr | | Jorge. | + + Resolved Problems + + [...] | Documentati | | Suzi Card | Other ([facility] | | 2019 | on Only | | JAZMINE Viramontes | records/ labs) | +--------+ + + + + | 08/16/ | Office | | Minerva Hernandez, | Chronic atrial | | 2019 | Visit | | MD | fibrillation (HCC) | | | | | | (Primary [...] | | | | | | failure ([facility]); | | | | | [...] | | | | | | [place] [address] | | | | | | [phone] | | | | | | | [...] | | + + + + + Results Not on filefrom Last 3 Months Insurance + +--------+ +------+-------+ + | Payer | Benefi | Subscriber | Type | Phone | Address | | | t Plan | ID | | | | | | / | | | | | | | Group | | | | | + +--------+ +------+-------+ + | MEDICARE | MEDICA | [id number] | | | [address] | | | RE | | | | [place] [address] | | | IP-OP | | | | | + +--------+ +------+-------+ + | CIGNA | CIGNA | [id number] | | | | | | - [...] Self | [birth year] | Home: | [address] | | | al/Fam | | 1930 | [phone] | [place] | | | [place] | | | [phone] | [phone] | + +--------+ +--------+ + +
--- OUTSIDE RECORDS SUMMARY | ~2018-09-13 | XMS | Encounter Summary ---
Demographics + + + | Address | [address] | | | [place] [address] | + + + | Home Phone | | + + + | Preferred Language | Unknown | + + + | Marital Status | | + + + | Synagogue Affiliation | 1077 | + + + [...] Team Providers + +------+ + | Care Customer Data Technician Name | Role | Phone | + +------+ + | John Barbosa MD | PCP | | + +------+ + Reason for Visit + + + | Reason | Comments | + + + | Medication Refill | | + + + Encounter Details +--------+--------+ + + + | Date | Type | Department | Care Team | Description | +--------+--------+ + + + | 06/28/ | Refill | [facility] | Vikram Patel, | Medication Refill | | 2018 | | PULMONARY [address] | MD [address] | | | | | [place], | [place], [place] [address] | | | | | [place] [address] | [place], [place] | | | | | [phone] | [address] | | | | | | | | +--------+--------+ + + + Social History + + [...] II | | | | | | [place] | | | | | | [address] | | | | | | | | +--------+---------+ + + + as of this encounter Visit Diagnoses + + | Diagnosis | + + | Severe persistent asthma without complication - Primary | + +"
--- OUTSIDE RECORDS SUMMARY | ~2018-09-13 | XMS | Clinical Summary ---
Demographics + + + | Address | [address] | | | [place] [address] | + + + | Home Phone | | + + + | Preferred Language | Unknown | + + + | Marital Status | | + + + | Pentecostal Affiliation | 1077 | + + + | Race | Unknown | + + + | Ethnic Group | Unknown | + + + Author + + + | Author | [facility] | | | and [place] | + + + | Organization | [facility] | | | [...] Team Providers + +------+ + | Care Knitting Machine Operator Name | Role | Phone [...] | | | | | [place] | | | | | | [address] | | | | | | | [...] +--------+ +---------+ | MEDICARE | MEDICA | [id number] | Medica | [phone]-- | | | | RE | | re | [phone] | | | | PART A | | | | | | | AND B | | | | | + +--------+ +--------+ +---------+ | MEDICARE SUPPLEMENT | MEDICA | [id number] | Indemn | [phone] | | | [...] | [place] | | | [phone] | [address] | + +--------+ +--------+ + +
--- OUTSIDE RECORDS SUMMARY | ~2018-09-13 | XMS | Clinical Summary ---
Demographics + + + | Address | [address] | | | [place] [address] | + + + | Home Phone [...] + + | Author | [facility] | + + + | Organization | [facility] | + + + | Address [...] Team Providers + +------+ + | Care First Assistant Name | Role | Phone | [...] taking | | | | | | [id number] | | | | | | sleep [...] CVR, on warfarin, | | managed by [facility]. 85yo [place], here | | [...] Assessment & Plan: Hx COPD, managed by Inductor TesterDr | | Jorge. | + + Resolved [...] | | | | | | failure ([facility]); | | | | | | Severe [...] | | | | | | [place] [address] | | | | | | [phone] | | | | | | | [...] +------+-------+ + | MEDICARE | MEDICA | [id number] | | | [address] | | | RE | | | | [place] [address] | | | IP-OP | | | | | + +--------+ +------+-------+ + | CIGNA | CIGNA | [id number] | | | | | | - [...] | | al/Fam | | 1930 | [phone] | [place] | | | [place] | | | [phone] | [address] | + +--------+ +--------+ + +
--- OUTSIDE RECORDS SUMMARY | ~2018-09-13 | XMS | Encounter Summary ---
Demographics + + + | Address | [address] | | | [place] [address] | + + + | Home Phone | | + + + | Preferred Language | Unknown | + + + | Marital Status | | + + + | Faith Affiliation | 1077 | + + + | Race | Unknown | + + + | Ethnic Group | Unknown | + + + Author + + + | Author | [facility] | | | and [place] | + + + | Organization | [facility] | | | [...] Team Providers + +------+ + | Care Pumper Helper Name | Role | Phone | + [...] | PULMONARY [address] | MD [address] | | | | | [place], | [place], [place] | | | | | [place] [address] | [place], [place] | | | | | [phone] | [address] | | | | | [...] [place] | | | | | | [address] | | | | | | | | +--------+---------+ + + + as of this encounter Visit Diagnoses + + | Diagnosis | + + | Severe persistent asthma without complication - Primary | + +"
--- OUTSIDE RECORDS SUMMARY | ~2018-09-13 | XMS | Encounter Summary ---
Demographics + + + | Address | [address] | | | [place] [address] | + + + | Home Phone | | + + + | Preferred Language | Unknown | + + + | Marital Status | | + + + | Jehovah'S Witness Affiliation | 1077 | + + + | Race | Unknown | + + + | Ethnic Group | Unknown | + + + Author + + + | Author | [facility] | + + + | Organization | [facility] | + + + | Address [...] Team Providers + +------+ + | Care Ironworker Apprentice Shop Name | Role | Phone | + [...] + + | 08/16/ | Office | [facility] | Minerva Mosher, | Chronic atrial | | 2019 | Visit | Cardiology [place] | [address] | fibrillation (HCC) | | | | [address] | [address] Blanco, | (Primary Dx); | | | | [facility] [address] | [place] [address] | Rheumatoid arthritis | | | | [place] [address] | [phone] | involving multiple | | | | [phone] | | sites with positive | | | | | | rheumatoid factor | | | | | | (HCC); Essential | | | | | | hypertension; | | | | | | Chronic diastolic | | | | | | congestive heart | | | | | | failure ([facility]); | | | | | | Severe [...] use metolazone. Previously was admitted to [facility] on May 10-2017 secondary to [...] Patient was seen after being discharged from [facility] due to decompensated hermes estive heart [...] mouth 2 (two) times daily. Nebulizer (medical assistant internal medicine) 1 each by Does not apply route [...] Reactions Diphenhydramine Hallucinations Developed hallucinations when taking vkul-cjn-casifpr sleep medications with diphenhydram ine Oxybutynin Hallucinations [...] problems. 1. Chronic diastolic congestive heart failure [facility] class III, stage C. Currently euvolemic. 2. Symptomatic severe aortic stenosis. 3. Significant visual hallucination. Improved. 4. Significant pulmonary disease with significant decrease in DLCO. Patient is on home O2 a t nighttime. 5. Recent bacterial pneumonia with recurrent worsening cough. 6. 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 7. Chronic atrial fibrillation [...] | | | | | | [place] [id number] | | | | | | [phone] | | | | | | | [...]
--- OUTSIDE RECORDS SUMMARY | ~2018-09-13 | XMS | Encounter Summary ---
Demographics + + + | Address | [address] | | | [place] [address] | + + + | Home Phone | | + + + | Preferred Language | Unknown | + + + | Marital Status | | + + + | Muslim Affiliation | 1077 | + + + | Race | Unknown | + + + | Ethnic Group | Unknown | + + + Author + + + | Author | [facility] | | | and [place] | + + + | Organization | [facility] | | | [...] Team Providers + +------+ + | Care Marketing Content Specialist Name | Role | Phone | [...] [address] | | | | | [phone] | [place] [address] | | +--------+ + + + + [...] 2018 | Visit | | MD Mohamud Platinum | | | | | | [place], [place] | | | | | | [place] | | | | | | [address] | | | | | | | [...]
--- OUTSIDE RECORDS SUMMARY | ~2018-09-13 | XMS | Encounter Summary ---
Demographics + + + | Address | [address] | | | [place] [address] | + + + | Home Phone | | + + + | Preferred Language | Unknown | + + + | Marital Status | | + + + | Advent Affiliation | 1077 | + + + | Race | Unknown | + + + | Ethnic Group | Unknown | + + + Author + + + | Author | [facility] | | | and [place] | + + + | Organization | [facility] | | [...] Team Providers + +------+ + | Care Regional Program Manager Name | Role | Phone | [...] | PULMONARY [address] | MD [address] | | | | | [place], | [place], [place] | | | | | [place] [address] | [place], [place] | | | | | [phone] | [address] | | | | | [...] [place] | | | | | | [address] | | | | | | | | +--------+---------+ + + + as of this encounter Visit Diagnoses + + | Diagnosis | + + | Severe persistent asthma without complication - Primary | + +"
--- OUTSIDE RECORDS SUMMARY | ~2018-09-13 | XMS | Encounter Summary ---
Demographics + + + | Address | [address] | | | [place] [address] | + + + | Home Phone | | + + + | Preferred Language | Unknown | + + + | Marital Status | | + + + | Christian Affiliation | 1077 | + + + | Race | Unknown | + + + | Ethnic Group | Unknown | + + + Author + + + | Author | [facility] | | | and [place] | + + + | Organization | [facility] | | [...] Team Providers + +------+ + | Care House Director Name | Role | Phone | + [...] [place] | | | | | [phone] | [place] [address] | | +--------+ + + + + [...] Jacobo | | | | | | [place], [place] | | | | | | [place] | | | | | | [address] | | | | | | | | +--------+---------+ + + + as of this encounter Results XR Chest AP Portable (07/17/20181) + + + | Narrative | Performed [...]
--- OUTSIDE RECORDS SUMMARY | ~2018-09-13 | XMS | Clinical Summary ---
Demographics + + + | Address | [address] | | | [place] [address] | + + + | Home Phone | | + + + | Preferred Language | Unknown | + + + | Marital Status | | + + + | Nondenominational Affiliation | 1077 | + + + | Race | Unknown | + + + | Ethnic Group | Unknown | + + + Author + + + | Author | [facility] | + + + | Organization | [facility] | + + + | Address [...] Team Providers + +------+ + | Care Comic Illustrator Name | Role | Phone | + [...] taking | | | | | | [id number] | | | | | | sleep [...] CVR, on warfarin, | | managed by [facility]. 85yo [place], here | [...] Assessment & Plan: Hx COPD, managed by Waterworks OperatorDr | | Jorge. | + + Resolved [...] | | | | | | failure ([facility]); | | | | | | [...] | | | | | | [place] [address] | | | | | | [phone] | | | | | | | [...] +------+-------+ + | MEDICARE | MEDICA | [id number] | | | [address] | | | RE | | | | [place] [address] | | | IP-OP | | | | | + +--------+ +------+-------+ + | CIGNA | CIGNA | [id number] | | | | | | - [...] | | al/Fam | | 1930 | [phone] | [place] | | | [place] | | | [phone] | [address] | + +--------+ +--------+ + +
--- OUTSIDE RECORDS SUMMARY | ~2018-09-13 | XMS | Encounter Summary ---
Demographics + + + | Address | [address] | | | [place] [address] | + + + | Home Phone [...] Team Providers + +------+ + | Care Turnstile Attendant Name | Role | Phone | + [...] [place] [place] | | | | | [phone] | [place] [address] | | +--------+ + + + + [...] 2018 | Visit | | MD Mohamud Laramie | | | | | | [place], [place] | | | | | | [place] | | | | | | [address] | | | | | | | [...]
--- OUTSIDE RECORDS SUMMARY | ~2018-09-13 | XMS | Encounter Summary ---
Demographics + + + | Address | [address] | | | [place] [address] | + + + | Home Phone | | + + + | Preferred Language | Unknown | + + + | Marital Status | | + + + | Hoahaoism Affiliation | 1077 | + + + | Race | Unknown | + + + | Ethnic Group | Unknown | + + + Author + + + | Author | [facility] | | | and [place] | + + + | Organization | [facility] | | | [...] Team Providers + +------+ + | Care Repair Miller Name | Role | Phone | + [...] [place] | | | | | [phone] | [place] [address] | | +--------+ + + + + [...] 2018 | Visit | | MD Mohamud Duvall | | | | | | [place], [place] | | | | | | [place] | | | | | | [address] | | | | | | | [...]
--- OUTSIDE RECORDS SUMMARY | ~2018-09-13 | XMS | Clinical Summary ---
Demographics + + + | Address | [address] | | | [place] [address] | + + + | Home Phone | | + + + | Preferred Language | Unknown | + + + | Marital Status | Single | + + + | Congregation Affiliation | Unknown | + + + | Race | Unknown | + + + | Ethnic Group | Other Race | + + + Author + + + | Author | [facility] | + + + | Organization | [facility] | + + + | Address | Unknown | + + + | Phone | Unavailable | + + + Care Team Providers + +------+ + | Care Information Coder Name | Role | Phone | + +------+ + PP | Unavailable | + +------+ + Source Comments TYLER is fully live on both [facility] and [facility] InPatient.[facility] Allergies Not on File Current Medications [...] | Medica | +- | [address] | | | RE A & | | re | [phone] | [place] [address] | | | B | | | [...] | | al/Fam | | 1930 | [phone] | [place] [address] | | | [place] | | | [address] | | + +--------+ +--------+ + +"
--- OUTSIDE RECORDS SUMMARY | ~2018-09-13 | XMS | Clinical Summary ---
Demographics + + + | Address | [address] | | | [place] [address] | + + + | Home Phone | | + + + | Preferred Language | Unknown | + + + | Marital Status | | + + + | Taoism Affiliation | 1077 | + + + | Race | Unknown | + + + | Ethnic Group | Unknown | + + + Author + + + | Author | [facility] | | | and [place] | + + + | Organization | [facility] | | | [...] Team Providers + +------+ + | Care Photoengraving Etcher Name | Role | Phone | + [...] | | | | | [place] | | | | | | [address] | | | | | | | [...] +--------+ +---------+ | MEDICARE | MEDICA | [id number] | Medica | +1-- | | | | RE | | re | [phone] | | | | PART A | | | | | | | AND B | | | | | + +--------+ +--------+ +---------+ | MEDICARE SUPPLEMENT | MEDICA | [id number] | Indemn | [phone] | | | [...] | [place] | | | [phone] | [address] | + +--------+ +--------+ + +
[~2018-09-13 19:14] MED LIST changes: -CARTIA XT240 MG PO; +KETOCONAZOLE120 ML TOP; +LISINOPRIL2.5 MG PO
--- OUTSIDE RECORDS SUMMARY | 2018-09-13 19:16 | XMS ---
PreManage Notification: ELODIA GONZALEZ Security Education Professional Events No recent Security Events currently on file CRITERIA MET - [facility] CARE PROVIDERS JUVE AGUIRRE Hospitalist 05/11/2018-Current PHONE: Unknown Jose Antonio Gonzales MD Primary Care Current PHONE: Unknown orjaved Smith or Computer Analyst Supervisor Current PHONE: Unknown Denise GONZALES Current PHONE: Unknown Dot has no Care Guidelines for this patient. Care History Medical/Surgical 05/11/2018 [facility] - Patient is currently established with [facility]. If patient is seen in the ED during business hours. Please contact CHWs at [facility]. Care Recommendation: This patient has had 5 [...] providing care. E.D. VISIT COUNT (12 MO.) 5 [facility]. TOTAL 5 NOTE: Visits indicate total known visits. ED/UCC VISIT TRACKING (12 MO.) 09/13/2018 19:14 [facility] [place] TYPE: Emergency COMPLAINT: - SOB 07/17/2018 19:39 [facility] [place] TYPE: Emergency COMPLAINT: - SOB 07/12/2018 20:59 [facility] [place] TYPE: Emergency COMPLAINT: - ASTHMA DIAGNOSES: - Shortness of breath - Other penitentiary (current) drug therapy - Allergy status to sulfonamides status - Unspecified asthma with (acute) exacerbation - Heart failure, unspecified - Personal history of nicotine dependence 05/10/2018 21:03 [facility] [place] TYPE: Emergency COMPLAINT: - SOB 04/18/2018 14:11 [facility] [place] TYPE: Emergency COMPLAINT: - SWOLLEN EXTREMITIES,NON INJURY DIAGNOSES: - Unspecified atrial fibrillation - oysterman (current) use of anticoagulants - Allergy status to sulfonamides status - Other oysterman (current) drug therapy - Heart failure, unspecified - Dyspnea, unspecified - Chronic obstructive pulmonary disease, unspecified INPATIENT VISIT TRACKING (12 MO.) 07/17/2018 22:26 [facility] [place] TYPE: Medical Surgical COMPLAINT: - SEPTIC SHOCK DIAGNOSES: - retirement (current) use of anticoagulants - Chronic respiratory failure with hypoxia - Hypotension, unspecified - Pneumonia due to other Gram-negative bacteria - Other disorders of bilirubin metabolism - Hemorrhagic disorder due to extrinsic circulating anticoagulants - Nonrheumatic aortic (valve) stenosis - Hemorrhagic disorder due to extrinsic circulating anticoagulants - Dysphagia, oropharyngeal phase - Do not resuscitate - Do not resuscitate - Bronchiectasis, uncomplicated - Other disorders of bilirubin metabolism - Chronic respiratory failure with hypoxia - oysterman (current) use of systemic steroids - Dependence on supplemental oxygen - Pneumonia due to other Gram-negative bacteria - Hypotension, unspecified - Bronchiectasis, uncomplicated - Rheumatoid arthritis, unspecified - Other malaise - Adverse effect of anticoagulants, initial encounter - Sepsis, unspecified organism - retirement (current) use of systemic steroids - Chronic atrial fibrillation - Cachexia - Personal history of nicotine dependence - Sepsis due to Methicillin susceptible Staphylococcus aureus - Nonrheumatic aortic (valve) stenosis - retirement (current) use of anticoagulants - Cachexia - Rheumatoid arthritis, unspecified - Severe sepsis with septic shock - Chronic atrial fibrillation - Dysphagia, oropharyngeal phase - Chronic obstructive pulmonary disease with acute lower respiratory infection - Chronic obstructive pulmonary disease with acute lower respiratory infection - Other malaise - Adverse effect of anticoagulants, initial encounter - Sepsis due to Methicillin susceptible Staphylococcus aureus - Dependence on supplemental oxygen - Acute on chronic diastolic (congestive) heart failure - Hypertensive heart disease with heart failure - Severe sepsis with septic shock - Personal history of nicotine dependence - Hypertensive heart disease with heart failure - Sepsis due to Serratia - Acute on chronic diastolic (congestive) heart failure - Sepsis due to Serratia 05/10/2018 21:[address] 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
[2018-09-13] MEDS ORDERED: ALENDRONATE SOD70 MG PO (19:20)
[2018-09-13] MEDS ORDERED: CORTIZONE-1028 G1 TOP (19:21)
--- NOTE | 2018-09-13 23:58 | NUR ---
PATIENT ARRIVED VIA STRETCHER. PATIENT WAS ABLE TO STANAD AND DO A DW. DW TAKEN AND RECORDED. PATIENT WAS ABLE TO TRANSFER A 1PA. PATIENT IS IN BED RESTING. VITALS TAKEN AND RECORDED. ADMISSION COMPLETED. PATIENTS SON IS WITH PATIENT AT THIS TIME. PATIENTS SCHEDULED MEDICATIONS GIVEN PER ORDER. PATIENT OREINTED TO FLOOR, ROOM, AND CALL LIGHT. PATIENT AND SON DENY ANY COMMENTS, QUESTIONS, OR CONCERNS. PATIENT EDUCATED ON FLUID RESTRICTION. PATIENT VERBALIZED UNDERSTANDING. NO NEEDS NOTED. CALL LIGHT IN REACH.
--- NOTE | 2018-09-14 00:54 | NUR ---
PATIENT'S ADMISION IS FINISHED AND SHE IS GOING TO TRY AND GET SALMA SLEEP KNOW SHE IS VERY TIRED. REMAINS ON 2L/NC AND IS SATING WELL. PATIENT IS HAVING NO PAIN. INSTRUCTED ON USE OF BED,LIGHTS,TV, AND CALL LIGHTS. CALL LIGHTS IN REACH.
--- NOTE | 2018-09-14 03:00 | NUR ---
PATIENT RESTING QUIETLY, EYES CLOSED, ON 2L/NC, SEMI-FOWLERS POSITION. PATIENT IN NO DISTRESS.
--- NOTE | 2018-09-14 05:00 | NUR ---
PATIENT SAYS SHE HAS RESTED WELL THROUGH THE NIGHT. SHE LOST ONE POUND ON HER STANDING WEIGHT THIS AM. VS HAVE BEEN GOOD AND HER MORGAN HAS BEEN DRAINING VERY WELL. SHE IS A+O AND FEELING SOMEWHAT BETTER THIS AM. SHE REMAINS ON 2L/NC AND IS SATING WELL. CALL LIGHT IS IN REACH.
--- NOTE | 2018-09-14 07:15 | NUR ---
REPORT RECEIVED FROM MIGUEL CARLSON. PT ASSISTED WITH ORDERING BREAFAST, 2L O2 IN PLACE. MORGAN DRAINING TO GRAVITY. WATER REFILLED, PT EDUCATION DONE REGARDING FLUID RESTRICTION. PT VERBALIZE UNDERSTANDING. NO ADDITIONAL REQUESTS OR COMPLAINTS AT THIS TIME.
--- NOTE | 2018-09-14 08:15 | NUR ---
PATIENT IN BED. RN IN ROOM. PATIENT TRASNFERRED TO CHAIR. PATIENT USES A WALKER. CHAIR ALARM ON. PATIENT TAKES HER BREAKFAST. LINENS CHANGED. CALL LIGHT WITHIN REACH. APPLE SAUCE GIVEN. SETS UP BATHROOM FOR SHOWER. NO OTHER NEEDS AT THIS TIME
--- NOTE | 2018-09-14 08:47 | NUR ---
MORNING ASSESSMENT AND MEDICATIONS DUE. THIS RN TO BEDSIDE. PT WORKING WITH TECHNITIAN WHO IS FINISHING ECHOCARDIOGRAM. PT ASSISTED UP TO CHAIR. PT DENIES PAIN AND NASUEA. SWELLING IN BLE APPEARS IMPROVIDED. RIGHT ELBOW CONTINUES TO BE SHOW LARGE AMOUNT OF SWELLING. MEDICATIONS GIVEN. PT FEEDS HERSELF BREAKFAST. NO ADDITIONAL REQEUSTS OR COMPLAINTS AT THIS TIME. PT PLANS TO SHOWER LATER THIS MORNING. BAG MAKING MACHINE TENDER AT BEDSIDE WORKING WITH PT. CALL LIGHT WITHIN REACH. CHAIR ALARM ON.
--- NOTE | 2018-09-14 09:31 | EKG ---
[facility] [address] [place] [address] Signed Atrial fibrillation with premature ventricular or aberrantly conducted complexes Incomplete right bundle branch block ST \T\ T wave abnormality, consider inferior ischemia Abnormal ECG When compared with ECG of 17-JUL-2018 19:55, Minimal criteria for Anterior infarct are no longer present T wave inversion more evident in Anterior leads Confirmed by DERRICK ANTONIO MD ([id number]) on 09/14/2018 9:30:58 AM Electronically Signed By: DERRICK ANTONIO MD 09/14/18 0931 PATIENT NAME: ELODIA GONZALEZ JOSE M Electrocardiogram DATE OF : [birth year] PHYSICIAN: DERRICK ANTONIO MD REPORT #: [id number] REPORT IS CONFIDENTIAL AND NOT TO BE RELEASED WITHOUT AUTHORIZATION
--- NOTE | 2018-09-14 09:39 | NUR ---
THIS RN TO ROOM TO CHECK ON PT. PT DENIES PAIN, DIZZINIESS AND NAUSEA. O2 SATURATION NOTED TO BE 89% ON ROOM AIR. PT PLACED BACK ON 2L NC, O2 SATURATION RISES TO 92%. PT FINISHED WITH BREAKFAST. NO ADDITIONAL REQUESTS OR COMPLAINTS AT THIS TIME. CHAIR ALARM ON. CALL LIGHT WITHIN REACH.
--- NOTE | 2018-09-14 10:09 | NUR ---
PIV WAS STARETD BY EMS AND IS DUE FOR DC TODAY. PIV DC'D PER PROTOCOL. NEW PIV PLACED PER PROTOCOL IN RFA. BRISK BLOOD RETURN NOTED. PIV SALINE LOCKED AT THIS TIME. PT VISITING WITH FAMILY AND ANTICIPATING A SHOWER SOON. CALL LIGHT WITHIN REACH. CHAIR ALARM ON.
--- NOTE | 2018-09-14 11:09 | NUR ---
PATIENT SITTING UP IN CHAIR. DAUGHTER AND RN IN ROOM. VITAL SIGNS AND I&O DONE. PATIENT GOES TO BATHROOM TO TAKE A SHOWER. PATIENS USES WALKER. ONE PERSON ASSISTING. PATIENT TAKES A SHOWER. PATIENT USING A CLEAN GOWN AND DEPEND. PATIENT BACKS TO BED. CALL LIGHT WITHIN REACH. NO OTHER NEEDS AT THIS TIME
--- NOTE | 2018-09-14 11:32 | NUR ---
WHEN VISITING WITH PT THIS MORNING WE WENT OVER HER CHF MAGNET AND PT STATED UNDERSTANDING AND WAS ABLE TO TELL ME SIGNS AND SX AND WHAT TO DO WHEN SHE HAD THE RED OR YELLOW AREAS ON THE MAGNET. PT STATES A GOOD UNDERSTANDING OF HER DX AND STATES THAT HER WEIGHT IS CHECKED DAILY PRIOR TO BREAKFAST. ALSO HAS HER BP AND O2 SATS CHECKED DAILY. DENIES FURTHER QUESTIONS AT THIS TIME.
--- NOTE | 2018-09-14 11:51 | NUR ---
PT RESTING IN BED, ALERT AND ORIENTED. SHE IS VERY RESPECTFUL, SPEAKS VERY SOFTLY. REQUESTED I CONTACT HER IMPLEMENTATION DIRECTOR AND LET HIM KNOW SHE IS HERE, WHICH I DID.PT ACCEPTED A JIMMY AND LET ME KNOW SHE USED TO MAKE THEM, BUT HAS NEVER RECEIVED ONE. PT REQUESTED PRAYER, WILL FOLLOW NEEDED
--- NOTE | 2018-09-14 12:07 | NUR ---
PATIENT RESTING IN BED. PATIENT'S LUNCH ORDERED. CALL LIGHT WITHIN REACH. NO OTHER NEEDS AT THIS TIME
--- NOTE | 2018-09-14 12:42 | NUR ---
NOON ASSESSMENT AND MEDICATIONS DUE. THIS RN TO BEDSIDE. PT UNHAPPY WITH LUNCH, STATING SHE WOULD LIKE A SANDWICH, DIETARY STATES BREAD DOES NOT QUALIFY UNDER CHOPPED DIET. EDUCATION DONE WITH PT. PT AGREEABLE TO MASHED POTATOES AND GRAVEY WITH TURKEY. NEW ORDER PLACED. ASSESSMENT DONE. +2 EDEMA IN BLE. PT DENIES PAIN AND NAUSEA. MEDICAITON GIVEN. MORGAN CATHETER DRAINGING. PT ADHERING TO FLUID RESTRICTION. NEW LUNCH ARRIVED. PT EATING LUNCH. CHAIR ALARM ON. CALL LIGHT WITHIN REACH.
--- NOTE | 2018-09-14 13:57 | NUR ---
PATIENT SITTING UP IN CHAIR. VITAL SIGNS AND I&O DONE. PATIENT TRANSFERRED TO BED. PATIENT USES A WALKER. ONE PERSON ASSISTING. ICE WATER GIVEN. CALL LIGHT WITHIN REACH. NO OTHER NEEDS AT THIS TIME
--- NOTE | 2018-09-14 14:00 | NUR ---
THIS RN TO ROOM TO CHECK ON PT. PT AWAKENS FROM NAP ABRUPTLY, PT DISORIENTED STATING "I SAW A BURNT BODY ACROSS ME." PT REORIENTED AND REASSUED. MD TO BEDSIDE FOR ROUNDS. PT REORIENTS EASILY. URINE NOTED TO HAVE A PINK COLOR, MD AWARE. BED RAILS UP. BED ALARM ON.
--- NOTE | 2018-09-14 14:57 | NUR ---
PATIENT HAS CHRONIC CHF. DOES NOT EAT MUCH AT A MEAL. GRANDDAUGHTER HELPS PREPARE HER BREAKFAST AND LUNCH. DAUGHTER IN LAW PREPARES DINNER. PAT DOES DRINK POP ON OCCASION. SHE LIKES YOGURT AND APPLESAUCE FOR BREAKFAST. CURRENTLY SHE IS ON A SOFT AND BITE-SIZED HEART HEALTHY DIET. APPETITE IS PRETTY NORMAL FOR HER AT THIS TIME. HAS RECEIVED DIET EDUCATION IN THE PAST, SO HAS HER FAMILY. PATIENT DOES NOT EAT LARGE AMOUNTS OF HIGH SODIUM FOODS. ON A 1600 ML FLUID RESTRICTION WELL.
--- NOTE | 2018-09-14 15:16 | NUR ---
NEW MEDICATION ORDERS PLACED. MEDICATIONS GIVEN ORDERED (SEE MAR). PT VISITING WITH SON. NO ADDITIONAL REQUESTS OR COMPLAINTS AT THIS TIME. BED RAILS UP. CALL LIGHT WITHIN REACH.
--- NOTE | 2018-09-14 16:09 | NUR ---
AFTERNOON ASSESSMENT AND MEDICATIONS DUE. LASIX GIVEN ORDRED. PT CONTINUES TO DENY PAIN AND NAUSEA. ASSESSMENT DONE. URINE NO LONGER PINK, NOW CLEAR YELLOW. SWELLING REMAINS CONSISTANT. PT REMAINS ON 2L O2 BY NM, HUMIDIFIER ADDED, O2 SATURATION 97%. PT NOTED TO COUGH WHEN DRINKING WATER. THICKENER TRIED, COUGHING NOTABLY DECREASED WITH THICKENER. NOTIFIED. PT WATCHING THE NEWS. NO ADDITIONAL REQUESTS OR COMPLAINTS. BED RAILS UP. CALL LIGHT WITHIN REACH. PT VISITING ON PHONE WITH FRIEND.
--- NOTE | 2018-09-14 16:37 | NUR ---
BED SIDE SWALLOW EVALUATION DONE. MD INFORMED OF RESULTS AND NEED FOR THICKENED LIQUIDS. ORDERS GIVEN TO CONTINUE CHOPPED DIET AND THIKEN LIQUID TO MILDLY THICK. NO ADDITONAL ORDERS AT THIS TIME. DIETARY INFORMED.
[2018-09-14] MEDS ORDERED: POTASSIUM CHLO10 ME1 PO (17:57)
--- NOTE | 2018-09-14 18:03 | NUR ---
PT HERE FOR CHF EXACERBATION. IV LASIX GIVEN X4 THIS SHIFT. HEART HEALTHY DIET, CHOPPED. BED SIDE SWALLOW EVAL TODAY. LIQUIDS TO BE MILDLY THICKENED. MORGAN CATHETER IN PLACE. O2 AT 2L BY NC IN PLACE. TO REMAIN IN PLACE PER RESPIRATORY THERAPY. 1PA, FWW. PT SHOWERED TODAY. 2+ EDEMA IN BLE. CHRONIC PREDNISONE. COUMIDIN GIVEN THIS SHIFT. PT TOLERATING 1600ML FLUID RESTRICTION WELL. DAILY WEIGHT. PT USES CALL LIGHT APPROPRIATLY.
--- NOTE | 2018-09-14 18:20 | NUR ---
PT CALL LIGHT ON. PT REQUESTS ALTERNATE FOOD FOR DESSERT, DIETARY INFOMRED. PT REQUESTS SODA FOR DINNER, SODA PROVIDED, THICKENED TO MILDLY THICK. PT SITTING ON EDGE OF BED EATING FOOD. NO ADDITIONAL REQUESTS OR COMPLAINTS. MANAGER MANUFACTURING AT BEDSIDE WORKING WITH PT.
--- NOTE | 2018-09-14 18:54 | NUR ---
MEDICATION DUE. THIS RN TO BEDSIDE. MEDICATION GIVEN. PT REPOSITIONED IN BED. PT WATCHING TV. NO ADDITIONAL REQUESTS OR COMPLAINTS AT THIS TIME. BED RAILS UP. CALL LIGHT WITHIN REACH.
--- NOTE | 2018-09-14 19:30 | NUR ---
PATIENT RESTING IN BED IN NO DISTRESS WATCHING TV.
--- NOTE | 2018-09-14 21:10 | NUR ---
PATIENT HAS BEEN PAIN FREE AND REMAINS ON HER 2L/NC AND IS GOING TO TRY AND GET SOME SLEEP.
--- NOTE | 2018-09-14 23:00 | NUR ---
PATIENT RESTING QUIETLY IN BED IN SEMI-FOWLERS POSITION, EYES CLOSED, RESPIRATIONS 16 AND REGULAR.
--- NOTE | 2018-09-15 00:57 | NUR ---
HELPED PT TO THE BSC AND BACK TO BED. BEDSIDE TABLE AND CALL LIGHT IN REACH.
--- NOTE | 2018-09-15 03:15 | NUR ---
PATIENT HAS HAD NO PAIN AND IS RESTING QUIETLY IN SEMI-FOWLERS POSITION ON HER 2L/NC, RESPIRATIONS HAVE REGULAR AND EVEN. PATIENT FEELS SHE NEEDS TO HAVE A BM, BUT HAS BEEN UNABLE TO SO NIO WILL BE ORDERED.
--- NOTE | 2018-09-15 07:38 | NUR ---
Pt awake, alert and oriented x3. Pt is on 2L oxygen per nc, resp even and non labored. Pt denies pain and sob at this time. Personal supplies and call light within reach.
[2018-09-15] MEDS ORDERED: CARTIA XT240 MG PO (08:46)
--- NOTE | 2018-09-15 08:46 | NUR ---
MED REC COMPLETE
--- NOTE | 2018-09-15 09:43 | NUR ---
PATIENT IN BED. BEDBATH DONE. PATIENT USING A CLEAN GOWN AND PANTS. PATIENT TRANSFERRED TO CHAIR. PATIENT USES WALKER. ONE PERSON ASSITING. ICE WATER GIVEN. LINENS CHANGED. VITAL SIGNS AND I&O DONE. CALL LIGHT WITHIN REACH. NO OTHER NEEDS AT THIS TIME
--- NOTE | 2018-09-15 12:29 | NUR ---
PT IS ALWAYS PLEASANT AND ALWAYS ABLE TO EXPRESS GRATITUDE. PLEASANT VISIT, IS PLEASED WITH HER URINE OUTPUT. HAD POSITIVE VISIT, GAVE BLESSING. EXTENDED A BLESSING, WILL FOLLOW NEEDED
--- NOTE | 2018-09-15 13:43 | NUR ---
PATIENT RESTING IN BED. RN IN ROOM. VITAL SIGNS AND I&O DONE. CALL LIGHT WITHIN REACH. NO OTHER NEEDS AT THIS TIME
--- NOTE | 2018-09-15 17:37 | NUR ---
PATIENT SITTING UP IN BED. VITAL SIGNS AND I&O DONE. CALL LIGHT WITHIN REACH. NO OTHER NEEDS AT THIS TIME
--- NOTE | 2018-09-15 19:16 | NUR ---
REPORT RECEIVED FROM MIGUEL VEE. pt IN BED RESTING. NO REQUESTS AT THIS TIME. CALL LIGHT WITHIN REACH. WHITEBOARD UPDATED.
--- NOTE | 2018-09-15 20:21 | NUR ---
ASSESSMENT AND MEDICATIONS DUE. ASSESSMENT DONE. pt DENIES PAIN. MEDICATIONS GIVEN (SEE MAR). MORGAN CARE DONE. 2.5L O2 APPLIED FOR NIGHT, NC HUMIDIFIED. NO REQUESTS AT THIS TIME. CALL LIGHT MODIFIED FOR EASY USE, WITHIN REACH.
--- NOTE | 2018-09-15 20:30 | NUR ---
VITALS DONE AND CHARTED BEDSIDE TABLE AND CALL LIGHT IN REACH.
--- NOTE | 2018-09-16 00:25 | NUR ---
ROUNDED ON pt. RESTING IN BED. NO REQUESTS AT THIS TIME. CALL LIGHT WITHIN REACH.
--- NOTE | 2018-09-16 02:49 | NUR ---
CALL LIGHT ON. pt STATED "I FEEL LIKE I HAVE TO PEE". CATHETER TUBING DRAINED AND REPOSITIONED. ASSESSMENT DONE. DENIES PAIN. NO FURTHER REQUESTS AT THIS TIME. CALL LIGHT WITHIN REACH.
--- NOTE | 2018-09-16 05:02 | NUR ---
pt RESTED ON AND OFF DURING SHIFT. 2.5 L O2 HUMIDIFIED WHILE SLEEPING. SBA, FWW. MORGAN, VOIDING QS. TOLERATING HEART HEALTHY DIET AND 1600ML FLUID RESTRICTION, SOFT FOODS, MILDLY THICK LIQUID. USES CALL LIGHT APPROPRIATELY.
--- NOTE | 2018-09-16 07:15 | NUR ---
PATIENT IN BED. PATIENT GOES TO USE BATHROOM. PATIENT USES A WALKER. ONE PERSON ASSISTING. PATIENT BACKS TO CHAIR. LINENS CHANGED. ICE WATER GIVEN. CALL LIGHT WITHIN REACH. NO OTHE NEEDS AT THIS TIME
--- NOTE | 2018-09-16 07:32 | NUR ---
PT IN BED, AWAKE, A&OX3. PT IS ON 2.5L OXYGEN PER NC, RESP EVEN AND NON LABORED. PT REPORTING SHE HAS NO PAIN AT THIS TIME AND DENIES SOB/CHEST PAIN. PT VOIDING Q/S. PERSONAL SUPPLIES AND CALL LIGHT WITHIN REACH. NO NEEDS AT THIS TIME.
--- NOTE | 2018-09-16 09:38 | NUR ---
PATIENT SITTING UP IN CHAIR. VITAL SIGNS AND I&O DONE. CALL LIGHT WITHIN REACH. NO OTHER NEEDS AT THIS TIME
--- NOTE | 2018-09-16 10:47 | NUR ---
DR. ANTONIO AWARE OF MOST RECENT URINE OUTPUT OF 100ML/HR WELL RECENT SOFT BP. (SEE VS CHART FOR FURTHER INFO).
--- NOTE | 2018-09-16 14:26 | NUR ---
PATIENT RESTING IN BED. VITAL SIGNS AND I&O DONE. CALL LIGHT WITHIN REACH. NO OTHER NEEDS AT THIS TIME
--- NOTE | 2018-09-16 15:48 | NUR ---
PATIENT CALLS. PATIENT IN THE BATHROOM USING BASE COMMODE. DEPEND CHANGED. CATHETER CARE DONE. PATIENT BACKS TO BED. PATIENT USES A WALKER. ONE PERSON ASSISTING. CALL LIGHT WITHIN REACH. NO OTHER NEEDS AT THIS TIME
--- NOTE | 2018-09-16 18:00 | NUR ---
PATIENT RESTING IN BED. FAMILY IN ROOM. VITAL SIGNS AND I&O DONE. CALL LIGHT WITHIN REACH. NO OTHER NEEDS AT THIS TIME
--- NOTE | 2018-09-16 19:14 | NUR ---
RECEIVED REPORT FROM MIGUEL VEE. pt IN BED READY FOR SLEEP. 2.5L OF HUMIDIFIED O2 VIA NC. NO REQUESTS AT THIS TIME. CALL LIGHT WITHIN REACH. WHITEBOARD UPDATED.
--- NOTE | 2018-09-16 20:38 | NUR ---
ASSESSMENT AND MEDICATIONS DUE. ASSESSMENT DONE. pt DENIES PAIN. WATER PROVIDED. MORGAN CARE DONE. MEDICATIONS GIVEN (SEE MAR). LIGHTS OFF FOR COMFORT. NO REQUESTS AT THIS TIME. CALL LIGHT WITHIN REACH.
--- NOTE | 2018-09-16 22:14 | NUR ---
I&OS DONE AND CHARTED.
--- NOTE | 2018-09-17 00:32 | NUR ---
ROUNDED ON pt. RESTING WITH EYES CLOSED, RESPIRATIONS REGULAR, RATE = 18. CALL LIGHT WITHIN REACH.
--- NOTE | 2018-09-17 01:35 | NUR ---
ROUNDED ON pt. RESTING WITH EYES CLOSED, RESPIRATIONS REGULAR, RATE = 20 CALL LIGHT WITHIN REACH.
--- NOTE | 2018-09-17 03:31 | NUR ---
ROUNDED ON pt. RESTING WITH EYES CLOSED, RESPIRATIONS REGULAR, RATE = 18. CALL LIGHT WITHIN REACH.
--- NOTE | 2018-09-17 05:00 | NUR ---
pt RESTED MOST OF SHIFT. 2.5L O2 HUMIDIFIED WHILE SLEEPING. SBA, FWW. MORGAN, VOIDING QS. TOLERATING HEART HEALTHY DIET AND 1600 ML FLUID RESTRICTION. SOFT FOODS. MILDLY THICK LIQUID. IV SL. USES CALL LIGHT APPROPRIATELY.
--- NOTE | 2018-09-17 06:12 | NUR ---
VITAL SIGNS DUE. ASSESSMENT DONE. DAILY WT. MORGAN EMPTIED. pt ON 2.5 L O2 VIA NC WHILE SLEEPING. CALL LIGHT WITHIN REACH. NO REQUESTS AT THIS TIME.
--- NOTE | 2018-09-17 08:06 | NUR ---
Report received from night coordinator RN. Patient was asleep during report, now awake and has HOB up to about 50 degrees or higher, eating breakfast. Interactive and appropriate. Will do physical assessment when she is finished with breakfast.
--- NOTE | 2018-09-17 08:57 | NUR ---
PATIENT SITTING UP IN BED EATING BREAKFAST EARLIER THIS MORNING, PATIENT ALREADY STARTED EATING AND REFUSED TO AMBULATE TO CHAIR FOR BREAKFAST AT THIS TIME. PATIENT CALL LIGHT IN REACH. AM CARE SET UP IN BATHROOM FOR USE AT A LATER TIME PER PATIENT REQUEST. NO OTHER NEEDS AT THIS TIME.
--- NOTE | 2018-09-17 10:45 | NUR ---
DR ANTONIO NOTIFIED OF LOWER BLOOD PRESSURE READINGS. STATES OK TO GIVE LASIX.
--- NOTE | 2018-09-17 10:55 | NUR ---
nurses aid into room to help patient up for shower.
--- NOTE | 2018-09-17 11:36 | NUR ---
THIS PIG LEAD MELTER HELPER ASSISTED PATIENT TO CLEAN DENTURES. MIGUEL MONSIVAIS ASSISTED THIS PIG LEAD MELTER HELPER TO AMBULATE PATIENT INTO BATHROOM FOR A SHOWER. PATIENT SHOWERED WITH ASSISTANCE, THIS PIG LEAD MELTER HELPER PERFORMED PERICARE AND CATH CARE, PATIENT HAS SMALL RED AREA ON TOES, MIGUEL MONSIVAIS NOTIFIED. PATIENT DRESSED IN CLEAN CLOTHES, AND AMBULATED BACK TO BEDSIDE RECLINER TO SIT UP FOR LUNCH. PATIENT HAS HEEL PROTECTORS ON AND BARRIER CREAM APPLIED TO BOTTOM. PATIENT RESTING, CALL LIGHT IN REACH. LINENS CHANGED. NO OTHER NEEDS AT THIS TIME.
--- NOTE | 2018-09-17 12:17 | NUR ---
up in chair eating lunch.
--- NOTE | 2018-09-17 14:24 | NUR ---
PT worked with patient, now dredge hand is visiting with patient. patient is up in chair.
--- NOTE | 2018-09-17 14:49 | NUR ---
PATIENT RESTING IN BEDSIDE RECLINER, CALL LIGHT IN REACH. NO OTHER NEEDS AT THIS TIME.
--- NOTE | 2018-09-17 19:00 | NUR ---
RECEIVED REPORT FROM MIGUEL MONSIVAIS. pt IN BED. O2 2.5 L VIA NC ON PER pt REQUEST. WILL PROVIDE WATER. CALL LIGHT WITHIN REACH. WHITEBOARD UPDATED.
--- NOTE | 2018-09-17 21:13 | NUR ---
ASSESSMENT AND MEDICATIONS DUE. pt RESTING IN BED. RECENT BM, REFUSED MIRALAX. ASSESSMENT DONE. MORGAN CARE DONE. MEDICATIONS GIVEN (SEE MAR) WITH APPLESAUCE. pt TOLERATED WELL. WATER THICKENED. ASSISTED IN GETTING READY FOR BED. CALL LIGHT WITHIN REACH. NO FURTHER REQUESTS AT THIS TIME. O2 ON FOR NIGHT, 2.5L HUMIDIFIED.
--- NOTE | 2018-09-17 22:58 | NUR ---
ROUNDED CHARGE. PATIENT IS RESTING IN BED. PATIENT DENIES ANY COMMENTS, QUESTIONS OR CONCERNS. PATIENT DENIES ANY NEEDS. CALL LIGHT IN REACH.
--- NOTE | 2018-09-17 23:22 | NUR ---
SPOKE WITH DR. ANTONIO REGARDING pt OUTPUT. NEW MEDICATIONS ORDERED. BLOOD PRESSURE LOW PER VITALS MACHINE. MANUAL BP DONE, DIFFICULT TO HEAR. MIGUEL ELIAS TOOK BP, RECORDED IN AUG. MEDICATION GIVEN (SEE MAR). CALL LIGHT WITHIN REACH. NO REQUESTS AT THIS TIME.
--- NOTE | 2018-09-18 00:01 | NUR ---
FUROSEMIDE GIVEN 31 MINUTES AFTER METOLAZONE ORDERED. pt RESTING WITH EYES CLOSED, ROUSED BRIEFLY THEN BACK TO RESTING. CALL LIGHT WITHIN REACH.
--- NOTE | 2018-09-18 01:28 | NUR ---
ROUNDED ON pt. RESTING WITH EYES CLOSED, RESPIRATIONS REGULAR. MORGAN DRAINING WELL. CALL LIGHT WITHIN REACH.
--- NOTE | 2018-09-18 02:55 | NUR ---
ROUNDED ON pt. pt ROUSED, ASSESSMENT DONE. NO CHANGE IN SWELLING. VOIDING WELL. MORGAN EMPTIED (SEE I&O). CALL LIGHT WITHIN REACH. NO REQUESTS AT THIS TIME.
--- NOTE | 2018-09-18 05:30 | NUR ---
pt RESTED ON AND OFF DURING SHIFT. DIURETICS GIVEN, MORGAN DRAINING WELL. 2.5L O2 HUMIDIFIED WHILE SLEEPING. SBA, FWW. TOLERATIN GHEART HEALTHY DIET AND 1600ML FLUID RESTRICTION. SOFT FOODS. MILDLY THICK LIQUID. IV SL. USES CALL LIGHT APPROPRIATELY.
--- NOTE | 2018-09-18 06:45 | NUR ---
VITALS ,I&os and standing weight done and charted. bedside table and call light in reach. pt needs nothing more at this time.
--- NOTE | 2018-09-18 07:46 | NUR ---
Pt in bed, alert and oriented x3. Pt denies needs at this time. Pt denies chest pain and sob. Personal supplies and call light within reach. No needs at this time.
--- NOTE | 2018-09-18 08:29 | NUR ---
PATIENT REFUSED TO GET UP TO CHAIR FOR BREAKFAST. RN NOTIFIED. PATIENT SITTING UP IN BED EATING BREAKFAST.
--- NOTE | 2018-09-18 09:42 | NUR ---
PATIENT IN BED RESTING. CALL LIGHT IN REACH. NO FURTHER NEEDS AT THIS TIME.
--- NOTE | 2018-09-18 10:05 | NUR ---
IN PT ROOM AT THIS TIME ASSESS PT AND DISCUSSING PLAN OF CARE.
--- NOTE | 2018-09-18 13:48 | NUR ---
PT SITTING IN CHAIR GIVING LUNCH ORDER TO DAIN SAAVEDRA. PT ALWAYS PLEASANT, ENJOYS TALKING ABOUT HER DAYS AN RN. PT SAYS SHE SLEEPS WELL UNTIL STAFF COME IN AND START VS AND BLOOD DRAWS AND THEN HAS A HARD TIME GETTING BACK TO SLEEP. HER HACKSAW INSPECTOR CAME IN FOR VISIT TUESDAY, THIS SEEMED TO PLEASE HER. HAD PRAYER WITH PT, WILL FOLLOW NEEDED
--- NOTE | 2018-09-18 15:40 | NUR ---
PATIENT UP TO BATHROOM AND BACK TO BED, 1PA FWW. CATH CARE AND CHRISTINE CARE DONE. LINEN CHANGE. DEPENDS CHANGED. CALL LIGHT IN REACH. NO FURTHER NEEDS AT THIS TIME.
--- NOTE | 2018-09-18 16:53 | NUR ---
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 Barbosa Date of echocardiogram -09/14/18 EF 65-80% Admit Wt.: 52.39 kg Today's Wt.: 46.67 kg Social support system: Spoke to Clifford who is currently at patient's bedside. He lives with patient and is aware of heart failure managment. Weight monitoring: Scale present in home. Clifford states they weigh patient daily. Recommended when to notify PCP Transportation mode: Not a barrier Diet: Family members that live with patient cook and shop. Clifford states they do not salt food. Requested that he check labels of processed items that are used. Medication routine: Clifford manages medications and sets them out for patient daily at home. Has been counseled on minimizing/avoiding use of NSAIDs Tobacco:NA Advanced directive: Not discussed at this initial visit Recommendations prior to discharge: Document ambulation oxygen saturations prior to discharge Absence of orthostatic hypotension. Discharge weight less than admit weight. Discharge BNP less than admit (as per [facility] Heart Failure DC) Follow-up plans: Mini-cog and PHQ-9 deferred since patient has been asleep or working with other [facility] staff members today. Family notified there will be a follow up call post DC and an outpatient education session can be arranged at that time if needed. Teaching materials at bedside: [facility] Heart Failure bundle folder-[facility] My Action Plan Living Well with Heart Failure book, Daily weight and symptom monitoring log, Zones magnet, [facility] contact information
--- NOTE | 2018-09-18 17:50 | NUR ---
PATIENT IN BED RESTING WITH EYES CLOSED. FRESH WATER GIVEN. CALL LIGHT IN REACH. NO FURTHER NEEDS AT THIS TIME.
--- NOTE | 2018-09-18 19:00 | NUR ---
RECEIVED REPORT FROM DAY SHIFT RN. PATIENT IS RESTING IN BED. PATIENT DENIES ANY NEEDS AT THIS TIME. CALL LIGHT IN REACH.
--- NOTE | 2018-09-18 21:15 | NUR ---
PATIENT ASSEMENT COMPLETED. PATIENTS VITALS TAKEN AND RECORDED. INTAKE AND OUTPUT RECORDED. MORGAN CARE COMPLETED. PATIENTS EVENING MEDICATIONS GIVEN PER ORDER. PATIENT DENIES ANY PAIN. DISCUSSED FR W/PATIENT/ PATIENT PROVIDED WITH MOR THICKENED PER ORDER WATER. PATIENTS ATTEND CHANGED. PATIENT HAD A SMEAR OF BM. PATIENT REPOSITIONED IN BED. PATIENT IS ON 2L VIA NC AT THIS TIME. PATIENT DENIES ANY SOB. PATIENT DENIES ANY FURTHER NEEDS. CALL LIGHT IN REACH.
--- NOTE | 2018-09-18 22:38 | NUR ---
PATIENT IS RESTING IN BED WITH EYES CLOSED, RR 17. CALL LIGHT IN REACH.
--- NOTE | 2018-09-18 23:05 | NUR ---
MORGAN CATH CARE DONE.
--- NOTE | 2018-09-19 00:16 | NUR ---
PATIENT IS RESTING IN BED WITH EYES CLOSED, RR 17. CALL LIGHT IN REACH.
--- NOTE | 2018-09-19 02:17 | NUR ---
PATIENT IS RESTING IN BED WITH EYES CLOSED. BREATHING IS EVEN AND UNLABORED, RR 17. CALL LIGHT IN REACH.
--- NOTE | 2018-09-19 03:58 | NUR ---
PATIENT REPOSITIONED IN BED. PATIENT DENIES ANY SOB OR PAIN. NO NEEDS NOTED. CALL LIGHT IN REACH.
--- NOTE | 2018-09-19 04:56 | NUR ---
PATIENT IS RESTING IN BED WITH EYES CLOSED, RR 17. CALL LIGHT IN REACH.
--- NOTE | 2018-09-19 05:06 | NUR ---
PATIENT RESTED WELL THROUGHOUT THE SHIFT. PATIENT IS ON SOFT/CARDIAC DIET. PATIENT IS ALSO ON MILDLY THICK LIQUIDS. PATIENT IS WORKING WITH PT/OT/ST. PATIENT IS SL AND IV FLUSHES WELL. PATIENT IS ON 2.5L VIA NC AT NIGHT AND RA DURING THE DAY AND THIS IS CHRONIC. PATIENT IS A 1PA W/FWW. PATIENT IS A DW. PATIENT IS AAOX3 AND USES CALL LIGHT APPROPRIATELY. MORGAN IN PLACE.
--- NOTE | 2018-09-19 05:43 | NUR ---
PATIENTS VITALS TAKEN AND RECORDED. MORGAN EMPTIED. MORGAN CARE COMPLETED. PATIENTS INTAKE AND OUPUT RECORDED. PATIENTS DW TAKEN AND RECORDED. PATIENT IS IN BED RESTING. PATIENT REMAINS ON 2L VIA NC. PATIENT DENIES ANY NEEDS. CALL LIGHT IN REACH.
--- NOTE | 2018-09-19 07:38 | NUR ---
PT SITTING UP IN BED AT THIS TIME, RESP EVEN AND NON LABORED. PT REPORTS HE WOULD LIKE TO TAKE WALK THIS AM AFTER HE EATS BREAKFAST. PT DENIES PAIN AND SOB. PERSONAL SUPPLIES AND CALL LIGHT WITHIN REACH. NO NEEDS.
--- NOTE | 2018-09-19 07:47 | NUR ---
PT IN BED SLEEPING, RESP EVEN AND NON LABORED. PT APPEARS COMFORTABLE, FLACC SCALE 0/10. NO NEEDS AT THIS TIME. CALL LIGHT WITHIN REACH. NO NEEDS.
--- NOTE | 2018-09-19 11:09 | NUR ---
PT HAD GOOD NIGHT'S SLEEP. SHE DID STATE THAT "I'M STILL TIRED". ALWAYS VERY PLEASANT, HOPES TO BE DC'D TODAY. EXTENDED A BLESSING, WILL FOLLOW NEEDED
--- NOTE | 2018-09-19 11:40 | NUR ---
PT SITTING IN CHAIR RESTING. PT APPEARS COMFORTABLE, FLACC 0/10. PT IS ON RA, RESP EVEN AND NON LABORED. PERSONAL SUPPLIES AND CALL LIGHT WITHIN REACH.
--- NOTE | 2018-09-19 19:27 | NUR ---
IN ROOM FOR REPORT, PT IS AWAKE IN BED AND DENIES FURTHER NEEDS AT THIS TIME. CALL LIGHT IS CLOSE.
--- NOTE | 2018-09-19 20:45 | NUR ---
MORGAN CARE DONE. APPLIED BARRIER CREAM ON CHRISTINE AREA.
--- NOTE | 2018-09-19 22:15 | NUR ---
ASSESSED PT AND ADMINISTERED MEDICATIONS. PT DENIES PAIN. AFTER TAKING HER CARDIZEM SHE FELT THAT IT WAS STUCK IN HER THROAT. WITH SOME MORE WATER AND PEICES OF A COOKIE SHE WAS ABLE TO SWALLOW IT. PT DENIES NEEDS AT THIS TIME. CALL LIGHT IS WITHIN REACH.
--- NOTE | 2018-09-19 23:34 | NUR ---
PT IS RESTING WITH EYES CLOSED, RESPIRATIONS ARE EVEN AND NONLABORED. CALL LIGHT IS WITHIN REACH.
--- NOTE | 2018-09-20 00:55 | NUR ---
PT IS RESTING WITH EYES CLOSED, RR IS EVEN AND NONLABORED. CALL LIGHT IS CLOSE.
--- NOTE | 2018-09-20 03:03 | NUR ---
PT IS RESTING WITH EYES CLOSED, RR IS EVEN AND NONLABORED. CALL LIGHT IS CLOSE.
--- NOTE | 2018-09-20 05:02 | NUR ---
PT IS RESTING WITH EYES CLOSED, RESPIRATIONS ARE EVEN AND NONLABORED. CALL LIGHT IS CLOSE.
--- NOTE | 2018-09-20 07:41 | NUR ---
0715: Report recieved from Liya RIVERA. Pt sleeping at this time, call ramirez is within reach.
--- NOTE | 2018-09-20 09:33 | NUR ---
PT RESTING IN HER BED WITH NO COMPLAINTS AT THIS TIME. LAB VALUES WERE REPORTED TO MD BY THE CHARGE NURSE THIS AM. PT IN NO DISTRESS AND APPEARS COMFORTABLE.
--- NOTE | 2018-09-20 10:35 | NUR ---
Pt taking a shower at this time with assistance of the [employer] FACILITY SUPERVISOR. She denies any SOB while showering.
--- NOTE | 2018-09-20 13:24 | NUR ---
Rosario cath dc'd as ordered. Pt tolerated well.
--- NOTE | 2018-09-20 14:15 | NUR ---
Pt ambulated in the becerra with a SBA and her fww. Pt walked about 50 feet and she states she is now a little bit tired. Pt helped into bed at this time.
--- NOTE | 2018-09-20 14:23 | NUR ---
Pt denies any SOB while on her walk, she states "just tired".
--- NOTE | 2018-09-20 15:56 | NUR ---
Pt resting in her bed and she continues to denie any SOB or CP. Pt does state that her "bottom" is sore. The area is pink/red in color and is blanchable with no skin breakdown. Pt was encouraged to try and stay off of it and she was turned to her right side.
--- NOTE | 2018-09-20 18:25 | NUR ---
PT HAS VOIDED TWICE SINCE HER MORGAN CATH WAS REMOVED. PT RESTING COMFORTABLY IN HER CHAIR AT THIS TIME.
--- NOTE | 2018-09-20 19:00 | NUR ---
CHARGE ROUNDING DONE. PATIENT RESTING IN BED. APPEARS TO BE IN GOOD SPIRITS AND SPEAKS HIGHLY OF HER CARE TODAY. NO CONCERNS AT THIS TIME.
--- NOTE | 2018-09-20 19:03 | NUR ---
RECEIVED REPORT, PT DENIES NEEDS AND CALL LIGHT IS WITHIN REACH.
--- NOTE | 2018-09-20 21:35 | NUR ---
IN ROOM TO ASSESS PT AND ADMINISTER MEDICATIONS. PT REPORTS INTERMITTENT PAIN IN HER LEFT TOE (WHICH IS CHRONIC) BUT DENIES THE NEED FOR PAIN MEDICINE. LOOSENED HER SOCKS AND HEEL PROTECTORS ARE IN PLACE. IV IN LEFT WRIST FLUSHES WELL. PT DENIES NEEDS AT THIS TIME. CALL LIGHT IS WITHIN REACH.
--- NOTE | 2018-09-20 23:14 | NUR ---
PT IS RESTING WITH EYES CLOSED, RESPIRATIONS ARE EVEN AND NONLABORED. CALL LIGHT IS CLOSE.
--- NOTE | 2018-09-21 01:21 | NUR ---
PT IS RESTING WITH EYES CLOSED, RESPIRATIONS ARE EVEN AND NONLABORED. CALL LIGHT IS WITHIN REACH.
--- NOTE | 2018-09-21 03:45 | NUR ---
HELPED PT TO THE BATHROOM AND BACK TO BED WITH HER FWWW. BEDSIDE TABLE AND CALL LIGHT IN REACH. HEEL PROTECTORS PUT BACK ON. PT NEEDS NOTHING MORE AT THIS TIME.
--- NOTE | 2018-09-21 04:58 | NUR ---
PT HAD A PRETTY UNEVENTFUL NIGHT. SHE WAS ON 2 LNC WHILE SLEEPING AND NORMALLY USES 2.5 LNC AT HOME WHILE SLEEPING. SHE AMBULATES SBA WITH FWW. HER IV IS SL. SHE HAD SOME TOE PAIN IN HER LEFT FOOT BUT DID NOT WANT PRN MEDICATION. SHE WEARS HEEL PROTECTORS. BARRIER CREAM USED ON PERIAREA/BOTTOM. SHE IS A DAILY WEIGHT.
--- NOTE | 2018-09-21 05:24 | NUR ---
PT IS RESTING WITH EYES CLOSED, RESPIRATIONS ARE EVEN AND NONLABORED. CALL LIGHT IS WITHIN REACH.
--- NOTE | 2018-09-21 06:00 | NUR ---
VITALS AND I&OS DONE AND CHARTED. BEDSIDE TABLE AND CALL LIGHT IN REACH.
--- NOTE | 2018-09-21 07:20 | NUR ---
BEDSIDE HANDOFF REPORT RECEIVED FROM CELLULOSE INSULATION HELPER RN. PT SLEEPING, LEFT UNDITURBED.
--- NOTE | 2018-09-21 08:00 | NUR ---
PT SITTING IN CHAIR. PT DENIES PAIN. PT A/O X4. PT ON ROOM AIR, O2 SATS 95%, LUNG SOUNDS COARSE THROUGHOUT, DENIES SOB. PT DENIES NAUSEA, BOWEL TONES ACTIVE. PT HYPOTENSIVE 99/64, METOLAZONE HELD. PT CMS INTACT, EDEMA 2+ IN RLE, 1+ IN LLE, PULSES FAINT. IV SALINE LOCKED. DISCUSSED PLAN OF CARE FOR THE DAY, PT HOPING TO DISCHARGE TODAY. PT DENIES OTHER NEEDS AT THIS TIME.
--- NOTE | 2018-09-21 08:19 | NUR ---
DISCCESSED METOLAZONE AND HYPOTENSION WITH DR. SHEPPARD, VERBAL ORDER TO HOLD METOLAZONE AND ONLY GIVE LASIX TODAY.
--- NOTE | 2018-09-21 09:51 | NUR ---
PATIENT SITTING UP IN CHAIR. VITAL SIGNS AND I&O DONE. CALL LIGHT WITHIN REACH. NO OTHER NEEDS AT THIS TIME
[2018-09-21] MEDS ORDERED: FUROSEMIDE40 MG PO (10:22)
[2018-09-21] MEDS ORDERED: METOLAZONE2.5 MG PO (10:22)
--- NOTE | 2018-09-21 10:36 | NUR ---
PATIENT CALLS TO GO BACK TO BED. PATIENT SITTING UP IN CHAIR. PATIENT BACKS TO BED. INDIGO USES A WALKER. ONE PERSON ASSISTING. CALL LIGHT WITHIN REACH. NO OTHER NEEDS AT THIS TIME.
--- NOTE | 2018-09-21 14:01 | NUR ---
PT TO BE DC'D TODAY. SHE WAS READY, STILL USING HER PCATRACHO. PT THANKED ME FOR VISITING-EXTENDED A BLESSING AND WILL BE AVAILABLE NEEDED
--- NOTE | 2018-09-21 14:36 | NUR ---
PATIENT RESTING IN BED. VITAL SIGNS AND I&O DONE. CALL LIGHT WITHIN REACH. NO OTHER NEEDS AT THIS TIME
--- NOTE | 2018-09-21 14:56 | NUR ---
PATIENT IN BED. PATIENT IS DRESS AND EVERYTHING IN PACKING BEFORE BEING DISCHARGED FROM THE UNIT
--- NOTE | 2018-09-21 15:21 | NUR ---
PATIENT RESTING IN BED. FAMILY IN ROOM. FINAL VITAL SIGNS WERE OBTAINED PRIOR TO DISCHARGE FROM THE UNIT.
== END 2018-09-21 16:00 | disposition home or self-care (01) | DRG 292 ==
LOC: ED 19:14 → MS 23:15
PROVIDERS: ADMIT Internal Medicine
DX: I11.0 Hypertensive heart disease with heart failure (principal); J96.11 Chronic respiratory failure with hypoxia; I50.33 Acute on chronic diastolic (congestive) heart failure; I48.2 Chronic atrial fibrillation; Z79.01 Long term (current) use of anticoagulants; J44.9 Chronic obstructive pulmonary disease, unspecified; J47.9 Bronchiectasis, uncomplicated; M06.9 Rheumatoid arthritis, unspecified; I35.0 Nonrheumatic aortic (valve) stenosis; R13.12 Dysphagia, oropharyngeal phase; Z99.81 Dependence on supplemental oxygen
CPT/HCPCS: 36415; 51702; 71045; 80048; 80053; 80069; 83735; 83880; 84484; 85025; 85610; 85730; 92610; 93005; 93010; 93306; 94640; 97161; 97165; 99285-25; J1120; J2930; J7512

== ENCOUNTER 2018-09-27 12:39 | Emergency (ER) | payer MEDICARE, OTHER ==
[~2018-09-27] VITALS: Ht 149.9 cm; Wt 43.5 kg
--- OUTSIDE RECORDS SUMMARY | ~2018-09-27 | XMS | Encounter Summary ---
Demographics + + + | Address | [address] | | | [place] [address] | + + + | Home Phone | | + + + | Preferred Language | Unknown | + + + | Marital Status | | + + + | Zoroastrian Affiliation | 1077 | + + + | Race | Unknown | + + + | Ethnic Group | Unknown | + + + Author + + + | Author | [facility] | + + + | Organization | [facility] | + + + | Address [...] Team Providers + +------+ + | Care Shale Miner Name | Role | Phone | + [...] cardiac valve | | | | | [id number] | disease unspecified | | | | [...] Description | +--------+---------+ + + + | 11/01/ | Office | Cardiology | Minerva Hernandez, | | | 2019 | Visit | | MD Inga Huitron | | | | | | Dr Blanco, | | | | | | [place] [id number] | | | | | | [phone] | | | | | | | [...] Isabel Vera Date of : 1930 | [facility] | | Performing Physician: Minerva Hernandez | [...] AV VTI: 48.10 | | | cm CMAERON Vmax: 0.85 cm2 CAMERON (VTI): 0.89 cm2 AVAI (Vmax): | | | 0.00 cm2/m2 AVAI (VTI): 0.00 cm2/m2 LVOT maxP.98 mmHg | | | LVOT meanP.70 mmHg LVSI Dopp: 30.68 ml/m2 LVSV Dopp: | | | 43.25 ml LVOT Vmax: 0.86 m/s LVOT Vmean: 0.61 m/s LVOT | | | VTI: 17.86 cm MV A Thomas: 0.33 m/s MV Dec Boyle: 5.25 m/s2 | | | MV DecT: [...] | 18.53 mmHg TR Vmax: 2.15 m/s Drapery Cutter Machine: Authenticated | | | by: Minerva Hernandez Report Date/Time: 09-14-2018 20:3:30 | | + + + + + | Procedure Note | + + | Juvenal, Rad Results In - 09/14/2018 8:10 PM PDT Patient Name: Haile Vera of | | : 1930Accession: [id number] Physician: Minerva | | Alsamara INDICATIONS------ | [...] | | cmLVPWd: 1.19 cmLVOT Area: 2.42 ej6MFLP Diam: 1.75 cm%FS: 25.63 %EF(Teich): | | 51.74 %ESV(Teich): 20.77 mlLVIDs: 2.42 cmSV(Teich): 22.28 mlRV Minor: 4.84 | | cmLVEF MOD A4C: 61.74 %SV MOD A4C: 27.87 mlLVEDV MOD A4C: 45.14 mlLVLd A4C: 5.68 | | cmLVESV MOD A4C: 17.26 mlLVLs A4C: 4.53 cmLAESV(A-L): 94.00 mlLAESV Index (A-L): | | 66.66 ml/m2LAAs A2C: 20.68 [id number] A-L A2C: 65.68 mlLALs A2C: 5.53 cmLAAs A4C: | | 29.60 [id number] A-L A4C: 106.20 mlLALs A4C: 7.00 cmRAAs: 39.48 hw7MVDIM A-L: | | 177.47 mlRAESV MOD: 169.93 mlRALs: 7.45 cmTAPSE: 1.51 cmAV maxP.03 mmHgAV | | meanP.30 mmHgAV Vmax: 2.45 m/Jonathan Vmean: 1.89 m/Jonathan VTI: 48.10 cmAVA Vmax: | | 0.85 cm2AVA (VTI): 0.89 [id number] (Vmax): 0.00 cm2/m2AVAI (VTI): 0.00 cm2/m2LVOT | | maxP.98 mmHgLVOT meanP.70 mmHgLVSI Dopp: 30.68 ml/m2LVSV Dopp: 43.25 | | mlLVOT Vmax: 0.86 m/sLVOT Vmean: 0.61 m/sLVOT VTI: 17.86 cmMV A Thomas: 0.33 m/sMV | | Dec Boyle: 5.25 m/s2MV DecT: 150.95 msMV E Thomas: 0.79 m/sMV E/A Ratio: 2.35 MV | | PHT: 43.77 msMVA By PHT: 5.02 zq2Gftiom e': 0.05 m/sSeptal E/e': 15.70 Lateral | [...] A Thomas: 0.33 m/s | |MV Dec Boyle: 5.25 m/s2 | |MV DecT: 150.95 ms [...] |TR Vmax: 2.15 m/s | | | |Drapery Cutter Machine: | |Authenticated by: Minerva Hernandez | |Report [...] | + + + + + | [facility] | [address] | [place] [address] | | + + + + + in this encounter Visit Diagnoses + + | Diagnosis | + + | Aortic valve stenosis, etiology of cardiac valve disease unspecified | + +"
--- OUTSIDE RECORDS SUMMARY | ~2018-09-27 | XMS | Clinical Summary ---
Demographics + + + | Address | [address] | | | [place] [address] | + + + | Home Phone | | + + + | Preferred Language | Unknown | + + + | Marital Status | | + + + | Nondenominational Affiliation | 1077 | + + + | Race | Unknown | + + + | Ethnic Group | Unknown | + + + Author + + + | Author | [facility] | + + + | Organization | [facility] | + + + | Address | Unknown | + + + | Phone | Unavailable | + + + Support + + +---------+ + | Name | Relationship | Address | Phone | + + +---------+ + | Clifford Gonzalez | ECON | Unknown | | + + +---------+ + | Sherry Smith | ECON | Unknown | | + + +---------+ + | Guanakito Mueller | ECON | Unknown | | + + +---------+ + | Leila Gonzalez | ECON | Unknown | | + + +---------+ + Care Team Providers + +------+ + | Care Hand Shaker Name | Role | Phone | + +------+ + | John Barbosa MD | PP | | + +------+ + Allergies + + + + + + | Active Allergy | Reactions | Severity | Noted | Comments | | | | | Date | | + + + + + + | Diphenhydramine | Hallucinations | Medium | 10/15/19 | Developed | | | | | 17 | hallucinations when | | | | | | taking | | | | | | [id number] | | | | | | sleep medications | | | | | | with diphenhydramine | + + + + + + | Oxybutynin | Hallucinations | Medium | 04/27/20 | | | | | | 17 | | + + + + + + | Sulfa Antibiotics | Nausea Only | Low | 01/11/20 | | | | | | 14 | | + + + + + + Current Medications + + +---------+---------+------+------+-------+ | Prescription | Sig. | Disp. | Refills | Star | End | Statu | | | | | | t | Date | s | | | | | | Date | | | + + +---------+---------+------+------+-------+ | furosemide (LASIX) | Take 40 mg by mouth | | | | | Activ | | 40 MG tablet | 2 (two) times daily. | | | | | e | + + +---------+---------+------+------+-------+ | warfarin | Take 2.5 mg by mouth | | | | | Activ | | (COUMADIN) 2.5 MG | daily. 1 tablet | | | | | e | | tablet | p.o. Qd | | | | | | + + +---------+---------+------+------+-------+ | Nebulizer (medical | 1 each by Does not | | | | | Activ | | device) | apply route 2 (two) | | | | | e | | | times daily. | | | | | | | | Dispense and provide | | | | | | | | instruction as | | | | | | | | needed. | | | | | | + + +---------+---------+------+------+-------+ | | Take 3 mLs by | | | | | Activ | | ipratropium-albutero | nebulization 4 | | | | | e | | l (DUONEB) 0.5-2.5 | (four) times daily | | | | | | | mg/3mL | as needed. | | | | | | + + +---------+---------+------+------+-------+ | potassium chloride | Take 20 mEq by mouth | | | | | Activ | | (K-TAB) 10 MEQ CR | 2 (two) times | | | | | e | | tablet | daily. | | | | | | + + +---------+---------+------+------+-------+ | formoterol | Take 20 mcg by | | | | | Activ | | (PERFOROMIST) 20 | nebulization every | | | | | e | | MCG/2ML nebulizer | 12 (twelve) hours. | | | | | | | solution | | | | | | | + + +---------+---------+------+------+-------+ | budesonide | Take 0.5 mg by | | | | | Activ | | (PULMICORT) 0.5 | nebulization 2 (two) | | | | | e | | MG/2ML nebulizer | times daily. | | | | | | | suspension | | | | | | | + + +---------+---------+------+------+-------+ | albuterol | Inhale 2 puffs into | | | | | Activ | | (PROVENTIL | the lungs every 4 | | | | | e | | HFA;VENTOLIN HFA) | (four) hours as | | | | | | | 108 (90 BASE) | needed for Wheezing. | | | | | | | MCG/ACT inhaler | | | | | | | + + +---------+---------+------+------+-------+ | acetaminophen | Take 500 mg by mouth | | | | | Activ | | (TYLENOL) 500 MG | every 6 (six) hours | | | | | e | | tablet | as needed for Pain. | | | | | | + + +---------+---------+------+------+-------+ | melatonin 1 MG | Take 1 mg by mouth | | | | | Activ | | tablet | nightly as needed | | | | | e | | | for Sleep. | | | | | | + + +---------+---------+------+------+-------+ | | Take 1 tablet by | | | | | Activ | | dextromethorphan-gua | mouth as needed. | | | | | e | | ifenesin (MUCINEX | | | | | | | | DM) 30-600 MG per 12 | | | | | | | | hr tablet | | | | | | | + + +---------+---------+------+------+-------+ | Cholecalciferol | Take 1 tablet by | | | | | Activ | | 2000 units CAPS | mouth daily. | | | | | e | + + +---------+---------+------+------+-------+ | Multiple | Take by mouth 2 | | | | | Activ | | Vitamins-Minerals | (two) times daily. | | | | | e | | (ICAPS AREDS 2 PO) | | | | | | | + + +---------+---------+------+------+-------+ | diltiazem | Take 1 capsule by | 90 | 1 | 09/2 | | Activ | | (CARDIZEM CD) 240 MG | mouth every evening. | capsule | | 7/20 | | e | | 24 hr capsule | | | | 18 | | | + + +---------+---------+------+------+-------+ | predniSONE | TAKE 1 TABLET EVERY | 30 | 0 | 10/0 | | Activ | | (DELTASONE) 5 MG | DAY WITH BREAKFAST | tablet | | 1/20 | | e | | tablet | (SUBSTITUTED FOR | | | 18 | | | | | DELTASONE) | | | | | | + + +---------+---------+------+------+-------+ | ketoconazole | | | | 10/3 | | Activ | | (NIZORAL) 2 % | | | | 1/20 | | e | | shampoo | | | | 18 | | | + + +---------+---------+------+------+-------+ | metoprolol | Take 200 mg by mouth | | | 09/0 | | Activ | | (TOPROL-XL) 200 MG | daily. | | | 5/20 | | e | | 24 hr tablet | | | | 18 | | | + + +---------+---------+------+------+-------+ | calcium carbonate | Take 1 tablet by | | | | | Activ | | (TUMS EX) 750 MG | mouth daily. | | | | | e | | chewable tablet | | | | | | | + + +---------+---------+------+------+-------+ | metolazone | Take 1 tablet by | 60 | 1 | 04/28 | 04/28 | Activ | | (ZAROXOLYN) 5 MG | mouth daily. Take 5 | tablet | | /20 | /20 | e | | tablet | mg as needed. Or may | | | 18 | 19 | | | | use twice a week if | | | | | | | | weight or LE edema | | | | | | | | increased. | | | | | | + + +---------+---------+------+------+-------+ Active Problems + + + | Problem | Noted Date | + + + | Chronic diastolic congestive heart failure (HCC) | 09/14/2017 | + + + | Severe aortic stenosis | 03/14/2017 | + + + + + | Overview: Last Assessment & Plan: | | Last Assessment & Plan: Under the care of | + + + + + | Mild pulmonic regurgitation and RV dysfunction by prior | 03/14/2017 | | echocardiogram | | + + + | Osteoporosis | 12/17/2016 | + + + + + | Last Assessment & Plan: Here today for Prolia, but due to her | | overall fragility, severe lower extremity edema, severe aortic | | stenosis - recommend that she discontinue Prolia at this time. | | The risks associated with the use of this medication, outweigh | | the benefit.Discussed ways to avoid risk of falling at home. | | Ambulatory ability is severely limited due to cardiopulmonary | | diseases.We will see her on a PRN basis | + + + + + | Chronic atrial fibrillation (HCC) | 01/10/2014 | + + + + + | Last Assessment & Plan: Chronic A fib, CVR, on warfarin, | | managed by [facility]. 85yo WF, here | | by herself today, doing relatively well, activity continues to be | | limited. She is unaware of any palpitations, she is unaware of | | the atrial fibrillation, hemodynamically, seems to be tolerating | | this quite well. She denies any new visual disturbances, | | dysarthria, dysphasia, lateralizing signs or symptoms. No | | significant bleeding or bruising. She admits some mild | | orthostatic symptoms, her furosemide was increased, she does have | | crackles in the bases of her lungs, but she has no peripheral | | edema. It is difficult to determine whether the crackles are | | mild pulmonary edema or pulmonary fibrosis. Today, labs are | | reviewed. Tolerating medical therapy. No changes in therapy. | | With the upcoming holidays, the increase in dietary salt | | anticipated, I did not reduce her furosemide, however, after the | | holidays it may be reasonable to reduce the furosemide to lessen | | her orthostatic symptoms. We do not have a chest x-ray, however, | | it is likely she's had chest x-rays in the past. We'll continue | | to follow her clinically. She is also being followed by | | pulmonary medicine and rheumatology.Hx Pacemaker/ICD: noLast | | Cath, 04/30/2005: coronaries NML, LVEF 60-65%.Last Echo, | | 06/19/2015 ([facility]): biplane LVEF 61%, marked bi-Atrial | | enlargement, mild AI, mild MR, mild TR, trace PI, est systolic | | PAP 341mmHg.Last stress test, Adenosine, 03/03/2005, reveals | | infero-lateral ischemia, ejection fraction 68%.ECG, 06/22/2015: A | | fib, 84bpm, PRWP. | + + + + + | Essential hypertension | 01/10/2014 | + + + + + | Last Assessment & Plan: HTN, controlled, continue current | | meds at current dose (diltiazem, furosemide, metoprolol). Labs | | reviewed with patient.Lab, 09/06/2015: T Chol: 1459, LDL-Chol: 74, | | HDL-Chol: 67, Tri Liver enzymes | | NML, K: 43.8, BUN/Cr: 15/0.7, glu: 83 | | TSH: 1.32, ESR: 10, WBC: 7.6, H/H: 13.5/41.6, plt: 202 | + + + + + | CHD (congenital heart disease) | 01/10/2014 | + + + + + | Last Assessment & Plan: Hx coarctation, surgically repaired | | 1963. | + + + + + | RA (rheumatoid arthritis) | 01/10/2014 | + + + + + | Last Assessment & Plan: Continue prednisone 5 mg QD thru PCP | | See her on a PRN basis | + + + + + | COPD (chronic obstructive pulmonary disease) | 01/10/2014 | + + + + + | Last Assessment & Plan: Hx COPD, managed by [facility] | | | + + Resolved Problems + + + + | Problem | Noted | Resolved | | | Date | Date | + + + + | Atrial fibrillation (HCC) | 11/25/19 | | | | 17 | 7 | + + + + Encounters +--------+ + + + + | Date | Type | Specialty | Care Team | Description | +--------+ + + + + | 09/14/ | Ancillary | | Caridad Conner MD | Aortic valve | | 2018 | Procedure | | | stenosis, etiology | | | | | | of cardiac valve | | | | | | disease unspecified | +--------+ + + + + | 09/14/ | Ancillary | | Caridad Conner MD | Aortic valve | | 2018 | Orders | | | stenosis, etiology | | | | | | of cardiac valve | | | | | | disease unspecified | +--------+ + + + + | 08/17/ | Documentati | | Suzi Card | [facility] | | 2018 | on Only | | JAZMINE Viramontes | records/ labs) | +--------+ + + + + | 08/16/ | Office | | Minerva Hernandez, | Chronic atrial | | 2019 | Visit | | MD | fibrillation ([facility]) | | | | | | (Primary Dx); | | | | | | Rheumatoid arthritis | | | | | | involving multiple | | | | | | sites with positive | | | | | | rheumatoid factor | | | | | | ([facility]); Essential | | | | | | hypertension; | | | | | | Chronic diastolic | | | | | | congestive heart | | | | | | failure ([facility]); | | | | | | Severe aortic | | | | | | stenosis | +--------+ + + + + from Last 3 Months Immunizations + + + + | Name | Dates Previously Given | Next Due | + + + + | INFLUENZA, PF | 04/11/2017, 04/05/2016, 04/13/2015 | | | TRIVALENT HIGH DOSE | | | | 65 YRS OR > | | | + + + + | Influenza, PF | 04/03/2014, 03/27/2013, 04/07/2012, | | | Recombinant, | 02/06/2012 | | | Trivalent (Flublok) | | | + + + + | Influenza, PF | 04/03/2014, 03/27/2013, 04/07/2012, | | | Trivalent | 02/06/2012 | | + + + + | Pneumococcal | 04/25/2014 | | | Conjugate 13-valent | | | + + + + | Pneumococcal | 10/06/2010 | | | Polysaccharide | | | | 23-valent | | | + + + + | Zoster (Live) | 05/27/2012 | | + + + + Family History + + +------+ + | Medical History | Relation | Name | Comments | + + +------+ + | Heart disease | Brother | | | + + +------+ + | Cancer | Brother | | | + + +------+ + | Heart disease | Brother | | | + + +------+ + | Cancer | Father | | | + + +------+ + | Heart disease | Mother | | | + + +------+ + + +------+ + + | Relation | Name | Status | Comments | + +------+ + + | Brother | | | heart and lung disease | | | | (Age | | | | | 87) | | + +------+ + + | Brother | | | cancer | | | | (Age | | | | | 85) | | + +------+ + + | Brother | | | DMII,renal failure,heart disease | | | | (Age | | | | | 66) | | + +------+ + + | Father | | | pancreatic cancer | | | | (Age | | | | | 77) | | + +------+ + + | Mother | | | heart disease, intestinal, lung disease | | | | (Age | | | | | 83) | | + +------+ + + Social History + + + [...] on file | | + + + Last Filed Vital Signs + + + + | Vital Sign | Reading | Time Taken | + + + + | Blood Pressure | 124/70 | 08/16/2018 1:18 PM PST | + + + + | Pulse | 74 | 08/16/2018 1:18 PM PST | + + + + | Temperature | 36.3 C (97.3 F) | 05/05/2018 12:15 PM PST | + + + + | Respiratory Rate | 20 | 05/17/2018 1:30 PM PST | + + + + | Oxygen Saturation | 91% | 08/16/2018 1:18 PM PST | + + + + | Inhaled Oxygen | - | - | | Concentration | | | + + + + | Weight | 54.4 kg (119 lb 14.4 | 05/17/2018 1:30 PM PST | | | oz) | | + + + + | Height | 149.9 cm (4' 11") | 08/16/2018 1:18 PM PST | + + + + | Body Mass Index | 24.22 | 05/17/2018 1:30 PM PST | + + + + Plan of Treatment +--------+---------+ + + + | Date | Type | Specialty | Care Team | Description | +--------+---------+ + + + | 11/01/ | Office | | Minerva Hernandez, | | | 2019 | Visit | | MD Inga Huitron | | | | | | Dr [address]anco, | | | | | | [place] [id number] | | | | | | [phone] | | | | | | | | +--------+---------+ + + + + + + + + | Health Maintenance | Due Date | Last Done | Comments | + + + + + | Vaccine: | | | | | Dtap/Tdap/Td (1 - | 9 | | | | Tdap) | | | | + + + + + | DEXA SCAN SCREENING | | | | | | 5 | | | + + + + + | Vaccine: Zoster (2 | | 05/27/2012 | | | of 3) | 3 | | | + + + + + | Vaccine: Influenza | | 04/11/2017, 04/05/2016, | | | (#1) | 8 | 04/13/2015, Additional history | | | | | exists | | + + + + + | Vaccine: | Completed | 04/25/2014, 10/06/2010 | | | Pneumococcal 65+ | | | | | Low/Medium Risk | | | | + + + + + Procedures + +--------+ + + + | [...] | | + +--------+ + + + from Last 3 Months Results ECHO outside interpretation standard (09/14/2018 10:57 AM) + + + | Impressions | Performed At | + + + | 1. The left ventricle is normal in size and normal systolic function | [facility] | | EF 65-70%. 2. There is [...] | + + + | Patient Name: Elodia Gonzalez Date of : 1930 | [facility] | | Performing Physician: Minerva Hernandez | [...] MV A Thomas: 0.33 m/s MV Dec Mack[place]: 5.25 m/s2 | | | MV DecT: [...] | 18.53 mmHg TR Vmax: 2.15 m/s Production Cook: Authenticated | | | by: Minerva Hernandez Report Date/Time: 09-14-2018 20:3:30 | | + + + + + | Procedure Note | + + | Juvenal, Rad Results In - 09/14/2018 8:10 PM PDT Patient Name: Haile Gonzalez of | | : 1930Accession: [id number] Physician: Minerva | | Alsamara INDICATIONS------ | [...] | | cmLVPWd: 1.19 cmLVOT Area: 2.42 pa5EIVL Diam: 1.75 cm%FS: 25.63 %EF(Teich): | | 51.74 %ESV(Teich): 20.77 mlLVIDs: 2.42 cmSV(Teich): 22.28 mlRV Minor: 4.84 | | cmLVEF MOD A4C: 61.74 %SV MOD A4C: 27.87 mlLVEDV MOD A4C: 45.14 mlLVLd A4C: 5.68 | | cmLVESV MOD A4C: 17.26 mlLVLs A4C: 4.53 cmLAESV(A-L): 94.00 mlLAESV Index (A-L): | | 66.66 ml/m2LAAs A2C: 20.68 [id number] A-L A2C: 65.68 mlLALs A2C: 5.53 cmLAAs A4C: | | 29.60 nf6RMSAS A-L A4C: 106.20 mlLALs A4C: 7.00 cmRAAs: 39.48 ya5VDZOX A-L: | | 177.47 mlRAESV MOD: 169.93 mlRALs: 7.45 cmTAPSE: 1.51 cmAV maxP.03 mmHgAV | | meanP.30 mmHgAV Vmax: 2.45 m/Jonathan Vmean: 1.89 m/Jonathan VTI: 48.10 cmAVA Vmax: | | 0.85 cm2AVA (VTI): 0.89 bg2IURM (Vmax): 0.00 cm2/m2AVAI (VTI): 0.00 cm2/m2LVOT | | maxP.98 mmHgLVOT meanP.70 mmHgLVSI Dopp: 30.68 ml/m2LVSV Dopp: 43.25 | | mlLVOT Vmax: 0.86 m/sLVOT Vmean: 0.61 m/sLVOT VTI: 17.86 cmMV A Thomas: 0.33 m/sMV | | Dec [place]: 5.25 m/s2MV DecT: 150.95 msMV E Thomas: 0.79 m/sMV E/A Ratio: 2.35 MV | | PHT: 43.77 msMVA By PHT: 5.02 [id number] e': 0.05 m/sSeptal E/e': 15.70 Lateral | [...] cm | |CAMERON Vmax: 0.85 cm2 | |CAMERNO (VTI): 0.89 cm2 | |AVAI (Vmax): 0.00 cm2/m2 | |AVAI (VTI): 0.00 cm2/m2 | |LVOT maxP.98 mmHg | |LVOT meanP.70 mmHg | |LVSI Dopp: 30.68 ml/m2 | |LVSV Dopp: 43.25 ml | |LVOT Vmax: 0.86 m/s | |LVOT Vmean: 0.61 m/s | |LVOT VTI: 17.86 cm | |MV A Thomas: 0.33 m/s | |MV Dec [place]: 5.25 m/s2 | |MV DecT: 150.95 ms [...] |TR Vmax: 2.15 m/s | | | |Production Cook: | |Authenticated by: Minerva Hrenandez | |Report Date/Time: 09-14-2018 20:3:30 | | [...] | + + + + + | MERGED WITH [facility] | [address] | [place] [address] | | + + + + + from Last 3 Months Insurance + +--------+ +------+-------+ + | Payer | Benefi | Subscriber | Type | Phone | Address | | | t Plan | ID | | | | | | / | | | | | | | Group | | | | | + +--------+ +------+-------+ + | MEDICARE | MEDICA | [id number] | | | [address] | | | RE | | | | [place] [address] | | | IP-OP | | | | | + +--------+ +------+-------+ + | CIGNA | CIGNA | [id number] | | | | | | - | | | | | | | GENERI | | | | | | | C | | | | | + +--------+ +------+-------+ + + +--------+ +--------+ + + | Guarantor Name | Accoun | Relation to | Date | Phone | Billing Address | | | t Type | Patient | of | | | | | | | | | | + +--------+ +--------+ + + | ELODIA GONZALEZ | Person | Self [birth year] Home: | [address] | | | al/Fam | | 1930 | [phone] [place] | | | [place] | | | [address][birth year] | [phone] | + +--------+ +--------+ + +
--- OUTSIDE RECORDS SUMMARY | ~2018-09-27 | XMS | Encounter Summary ---
Demographics + + + | Address | [address] | | | [place] [address] | + + + | Home Phone | | + + + | Preferred Language | Unknown | + + + | Marital Status | | + + + | Sabianism Affiliation | 1077 | + + + | Race | Unknown | + + + | Ethnic Group | Unknown | + + + Author + + + | Author | [facility] | | | and [place] | + + + | Organization | [facility] | | | and [place] | + + + | Address | Unknown | + + + | Phone | Unavailable | + + + Support + + +---------+ + | Name | Relationship | Address | Phone | + + +---------+ + | Clifford Vera | ECON | Unknown | | + + +---------+ + | Sherry Smith | ECON | Unknown | Unavailable | + + +---------+ + Care Team Providers + +------+ + | Care Cullet Crusher And Washer Name | Role | Phone | + +------+ + | John Barbosa MD | PCP | | + +------+ + Encounter Details +--------+ + + + + | Date | Type | Department | Care Team | Description | +--------+ + + + + | 07/17/ | Imaging | [facility] | Provider, | | | 2019 | Exam | [facility] | MD [address] | | | | | IMAGING | [address] | | | | | [phone] | [place] [address] | | +--------+ + + + + Social History + + + +--------+ + | Tobacco Use | Types | Packs/Day | Years | Date | | | | | Used | | + + + +--------+ + | Former Smoker | Cigarettes | 0.5 | 14 | 04/04/1949 - | | | | | | 06/27/1962 | + + + +--------+ + + +---+---+---+ | Smokeless Tobacco: | | | | | Never Used | | | | + +---+---+---+ + + +---------+ + | Alcohol Use | Drinks/We | oz/Week | Comments | | | ek | | | + + +---------+ + | No | 0 | 0.0 | | | | Standard | | | [...] Description | +--------+---------+ + + + | 10/13/ | Office | Pulmonology | Vikram Patel, | | | 2018 | Visit | | [facility] [address] [place] | | | | | | [address], [address] | | | | | | [place] | | | | | | [address] | | | | | | | | +--------+---------+ + + + as of this encounter Procedures + +--------+ + + + | Procedure Name | Priori | Date/Time | Associated Diagnosis | Comments | | | ty | | | | + +--------+ + + + | XR CHEST AP PORTABLE | Routin | 07/17/2018 | | Results for this | | | e | 2245 PST | | procedure are in the | | | | | | results section. | + +--------+ + + + in this encounter Results XR Chest AP Portable (07/17/2018 2245) + + + | Narrative | Performed At | + + + | External films for comparison only | [facility] | | | | | No results will be in the chart. | | + + + + +---------+ + + | Performing | Address | City/State/Zipcode | Phone Number | | Organization | | | | + +---------+ + + | [facility] | | | | + +---------+ + + in this encounter Visit Diagnoses Not on filein this encounter"
--- OUTSIDE RECORDS SUMMARY | ~2018-09-27 | XMS | Encounter Summary ---
Demographics + + + | Address | [address] | | | [place] [address] | + + + | Home Phone | | + + + | Preferred Language | Unknown | + + + | Marital Status | | + + + | Sikh Affiliation | 1077 | + + + | Race | Unknown | + + + | Ethnic Group | Unknown | + + + Author + + + | Author | [facility] | + + + | Organization | [facility] | + + + | Address [...] Team Providers + +------+ + | Care Grader Meat Name | Role | Phone | + +------+ + | Juve Aguirre MD | PCP | | + +------+ + Reason for Visit + + + | Reason | Comments | + + + | Follow-up | 3 month | + + + Encounter Details +--------+---------+ + + + | Date | Type | Department | Care Team | Description | +--------+---------+ + + + | 08/16/ | Office | [facility] | Minerva Mosher, | Chronic atrial | | 2019 | Visit | Cardiology Florentino | [address] | fibrillation (HCC) | | | | [address] | [address] Blanco, | (Primary Dx); | | | | [facility] [address] | [place] [address] | Rheumatoid arthritis | | | | [place] [address] | [phone] | involving multiple | | | | [phone] | | sites with positive | | | | | | rheumatoid factor | | | | | | (HCC); Essential | | | | | | hypertension; | | | | | | Chronic diastolic | | | | | | congestive heart | | | | | | failure ([facility]); | | | | | | Severe aortic | | | | | | stenosis | +--------+---------+ + + + Social History + + [...] + + + as of this encounter Last Filed Vital Signs + + + + | Vital Sign | Reading | Time Taken | + + + + | Blood Pressure | 124/70 | 08/16/2018 1:18 PM PST | + + + + | Pulse | 74 | 08/16/2018 1:18 PM PST | + + + + | Temperature | - | - | + + + + | Respiratory Rate | - | - | + + + + | Oxygen Saturation | 91% | 08/16/2018 1:18 PM PST | + + + + | Inhaled Oxygen | - | - | | Concentration | | | + + + + | Weight | - | - | + + + + | Height | 149.9 cm (4' 11") | 08/16/2018 1:18 PM PST | + + + + | Body Mass Index | - | - | + + + + in this encounter Progress Notes Minerva Mosher MD - 08/16/2018 1:30 PM PSTFormatting of this note may be different fro m the original. Date of visit: 08/16/2018 Primary Care Physician: JUVE AGUIRRE CHIEF COMPLAINT: Chief Complaint Patient presents with Follow-up 3 month HISTORY OF PRESENT ILLNESS: Isabel is 88 y.o. female here for here for follow up. Limited activity level. Good histor dann. Comes in with her granddaughter today. Was hospitalized from July 17-2018 secondary to bacterial pneumonia. Had septic shock and was placed on pressors short time. Recovered well however now feels we ak again coughing with productive sputum. No fever or chills. Has been using furosemide 40 mg once daily never had to use metolazone. Previously was admitted to [facility] on May 10-2017 secondary to volu me overload and congestive heart failure. Patient was diuresed and discharged home after 4 d ays. Before admission she admitted she does not like taking diuretics because she does not want to take diuretics on someday, gets tired from trips to the bathroom. Has limited activity level secondary to severe arthritic deformities in both hands. Has bee n on chronic steroids and uses a cane to ambulate. Semi-independent in her daily needs. Was evaluated by TAVR team unfortunately patient will not be a candidate due to significant lung disease. Has been complaining of significant hallucination currently better than before. Briefly patient history. Patient was seen after being discharged from [facility] due to decompensated hermes estive heart failure. Past medical history, SH, FH, and medications were reviewed in the chart. Medications: Outpatient Encounter Prescriptions as of 08/16/2018 Medication Sig Dispense Refill acetaminophen (TYLENOL) 500 MG tablet Take 500 mg by mouth every 6 (six) hours as neede d for Pain. albuterol (PROVENTIL HFA;VENTOLIN HFA) 108 (90 BASE) MCG/ACT inhaler Inhale 2 puffs int o the lungs every 4 (four) hours as needed for Wheezing. budesonide (PULMICORT) 0.5 MG/2ML nebulizer suspension Take 0.5 mg by nebulization 2 (t wo) times daily. calcium carbonate (TUMS EX) 750 MG chewable tablet Take 1 tablet by mouth daily. Cholecalciferol 2000 units CAPS Take 1 tablet by mouth daily. dextromethorphan-guaifenesin (MUCINEX DM) 30-600 MG per 12 hr tablet Take 1 tablet by m outh as needed. diltiazem (CARDIZEM CD) 240 MG 24 hr capsule Take 1 capsule by mouth every evening. 90 capsule 1 formoterol (PERFOROMIST) 20 MCG/2ML nebulizer solution Take 20 mcg by nebulization ever y 12 (twelve) hours. furosemide (LASIX) 40 MG tablet Take 40 mg by mouth 2 (two) times daily. ipratropium-albuterol (DUONEB) 0.5-2.5 mg/3mL Take 3 mLs by nebulization 4 (four) times daily as needed. melatonin 1 MG tablet Take 1 mg by mouth nightly as needed for Sleep. metolazone (ZAROXOLYN) 5 MG tablet Take 1 tablet by mouth daily. Take 5 mg as needed. O r may use twice a week if weight or LE edema increased. 60 tablet 1 metoprolol (TOPROL-XL) 200 MG 24 hr tablet Take 200 mg by mouth daily. Multiple Vitamins-Minerals (ICAPS AREDS 2 PO) Take by mouth 2 (two) times daily. Nebulizer (medical device engineer) 1 each by Does not apply route 2 (two) times daily. Dispense and provide instruction as needed. potassium chloride (K-TAB) 10 MEQ CR tablet Take 20 mEq by mouth 2 (two) times daily. predniSONE (DELTASONE) 5 MG tablet TAKE 1 TABLET EVERY DAY WITH BREAKFAST (SUBSTITUTED FOR DELTASONE) 30 tablet 0 warfarin (COUMADIN) 2.5 MG tablet Take 2.5 mg by mouth daily. 1 tablet p.o. Qd ketoconazole (NIZORAL) 2 % shampoo lisinopril (ZESTRIL) 2.5 MG tablet Take 2.5 mg by mouth daily. No facility-administered encounter medications on file as of 08/16/2018. Allergies Allergies Allergen Reactions Diphenhydramine Hallucinations Developed hallucinations when taking hfim-eno-uywnldg sleep medications with diphenhydram ine Oxybutynin Hallucinations Sulfa Antibiotics Nausea Only REVIEW OF SYSTEMS: Constitutional: Positive for increased fatigue. Weight has been stable. HEENT: Negative for nosebleeds, ear discharge, nasal congestion or soar throat. Eyes: . Vision. Respiratory: Positive for productive cough. Cardiovascular: As HPI. Gastrointestinal: Negative for nausea, vomiting, diarrhea, abdominal pain and blood in stoo l. Genitourinary: Negative for dysuria or hematuria. Musculoskeletal: Significant arthritic pain. Her extremity edema resolved. Skin: Negative for rash. Neurological: Negative for dizziness. No numbness. No recent falls. No slurred speech. Hematological: No significant bruising. Psychiatric/Behavioral: Significant hallucination. PHYSICAL EXAM Vital Signs: BP 124/70 (BP Location: Left upper arm, Patient Position: Sitting) | Pulse 74 | Ht 1.499 m (4' 11") | SpO2 91% | BMI 24.22 kg/m GENERAL APPEARANCE: Alert, oriented, cooperative, no distress, appears stated age. HEENT: Extraocular movements were intact. No jaundice. Pupiles round and reactive. NECK: No JVD, lymphadenopathy. Carotid upstrokes normal. No carotid bruit heard. CARDIAC: irregular irregular with variable S1 and mildly diminished S2. Systolic murmur in the right upper sternal border. CHEST: Poor effort, no crackles or wheezing. Mild rhonchi's. ABDOMEN: Soft.No tenderness or guarding. No palpable organs. Active bowel sounds. EXTREMITIES: Severe arthritic deformities in both hands. Pressure stocking positive for gregg ma. NEURO: Alert and oriented times three with no focal deficit. Cranial nerves are grossly no rmal. SKIN: Warm and dry. No rash. Psych: Normal affect and mood. DATA Labs: 07/23/2018 Sodium 135, potassium 5.0, chloride 95, bicarbonate 36, BUN 21, creatinine 0.54, glucose 81 . AST 15, AST 14, alk phos 107, INR 1.6. 05/10/2018 Sodium 136, potassium 5.0, chloride 98, bicarbonate 28, prn 23, creatinine 0.79, GFR 69, gl ucose of 50, calcium 9.9, AST 15, AST 14, alk phos 138. WBC 7.3, hemoglobin 16.2, platelets 201 09/30/2017 WBC 7.5, hemoglobin 13.9, platelets 263, sodium 138, potassium 4.5, chloride 102, bicarbona te 23, BUN 17, creatinine 0.61. EF are 93. He 15, AST 17, alk phos 90, bilirubin 1.0, total cholesterol 131, triglycerides 68, HDL 49, LDL 68. TSH 2.9. Lab Results Component Value Date/Time NA 140 10/24/2017 02:07 PM K 4.3 10/24/2017 02:07 PM CO2 27 10/24/2017 02:07 PM BUN 20 10/24/2017 02:07 PM CREATININE 0.8 10/24/2017 02:07 PM Lab Results Component Value Date/Time WBC 10.21 10/24/2017 02:07 PM HGB 15.1 10/24/2017 02:07 PM HCT 44.2 10/24/2017 02:07 PM MCV 86.9 10/24/2017 02:07 PM PLT 202 10/24/2017 02:07 PM Lab Results Component Value Date GLUF 130 (H) 10/24/2017 EC01/25/2018 Ordered and reviewed by myself showed atrial fibrillation with controlled ventricular rate, incomplete right bundle blush product, ST and T-wave abnormality consistent with lateral is chemia. Last Cath, 02/24/2017 Mild insignificant coronary artery disease. Low cardiac output and index. Normal hemodynami cs on RHC Limited Echo: 11/25/2016 Severe aortic calcification with low gradient severe aortic stenosis and significant dimens ional index of 0.24-0.28. Echo 09/22/2016: Left ventricle is normal in size, borderline LVH, EF 55-60%.Severe RVE with mildly impaired systolic function. aortic valve is severely calcified, restricted cusps excursion. Limited doppler evaluation, however visually, planimetry and by M mode indicates possible severe aor tic stenosis (Hx coarctation, surgically repaired 1962).Mitral valve is mildly thickened and calcified with mild mitral regurgitation. mildly dilated left atrium.Severe tricuspid regur gitation with moderate pulmonary hypertension RVSP 54 mmHg. no pericardial effusion. Echo:06/19/2015 ([facility]): biplane LVEF 61%, marked bi-Atrial enlargement, mild AI, mild MR, mild TR, trace PI, est systolic PAP 41mmHg. Last stress test, Adenosine, 03/03/2005, reveals infero-lateral ischemia, ejection fraction 6 8%. Hx coarctation, surgically repaired 1962 ASSESSMENT: Patient is 88 y.o. female with the following medical problems. 1. Chronic diastolic congestive heart failure [facility] class III, stage C. Currently euvolemic. 2. Symptomatic severe aortic stenosis. 3. Significant visual hallucination. Improved. 4. Significant pulmonary disease with significant decrease in DLCO. Patient is on home O2 a t nighttime. 5. Recent bacterial pneumonia with recurrent worsening cough. 6. 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 7. Chronic atrial fibrillation on rate control strategy and anticoagulation. 8. History of coarctation repair. 9. Moderate pulmonary hypertension. 10. Patient is DO NOT RESUSCITATE now. Plan: Reviewed recent hospitalization records. Patient has been having increased cough or sputum production no fever or chills. Reviewed current medical therapy with the patient and her granddaughter at the bedside toda y. Continue to have visual hallucinations however less. Currently euvolemic we will continue with furosemide 40 mg once daily. Can use metolazone a s needed. Chest x-ray is ordered. Continue with anticoagulation and rate control with diltiazem and metoprolol. Previously. Patient was evaluated by TAVR team and was not a candidate for aortic valve replacement due to severe pulmonary disease. Continue with conservative medical management at this time. Happy that the patient has made her will and wishes ready, currently DO NOT RESUSCITATE. Further recommendations to follow. *This report has been prepared using a voice recognition system. The report was reviewed fo r accuracy, however, sound-alike word errors, addition and/or deletions may occur. If there is any question about this report please contact me. Minerva Mosher MD, MPHin this encounter Plan of Treatment +--------+---------+ + + + | Date | Type | Specialty | Care Team | Description | +--------+---------+ + + + | 11/01/ | Office | Cardiology | Minerva Mosher, | | | 2018 | Visit | | MD Inga Huitron | | | | | | Dr Blanco, | | | | | | [place] [id number] | | | | | | [phone] | | | | | | | | +--------+---------+ + + + + +--------+ + + | Name | Priori | Associated Diagnoses | Order Schedule | | | ty | | | + +--------+ + + | X-ray Chest 1 View | Routin | Chronic atrial | Expected: | | | e | fibrillation (HCC) | 08/16/2018, Expires: | | | | Essential | 02/13/2019 | | | | hypertension Severe | | | | | aortic stenosis | | + +--------+ + + as of this encounter Visit Diagnoses + + | Diagnosis | + + | Chronic atrial fibrillation (HCC) - Primary | + + | Atrial fibrillation | + + | Rheumatoid arthritis involving multiple sites with positive rheumatoid factor (HCC) | + + | Essential hypertension | + + | Unspecified essential hypertension | + + | Chronic diastolic congestive heart failure (HCC) | + + | Chronic diastolic heart failure | + + | Severe aortic stenosis | + + | Aortic valve disorders | + +
--- OUTSIDE RECORDS SUMMARY | ~2018-09-27 | XMS | Encounter Summary ---
Demographics + + + | Address | [address] | | | [place] [address] | + + + | Home Phone | | + + + | Preferred Language | Unknown | + + + | Marital Status | | + + + | Catholic Affiliation | 1077 | + + + | Race | Unknown | + + + | Ethnic Group | Unknown | + + + Author + + + | Author | [facility] | + + + | Organization | [facility] | + + + | Address [...] | + + +---------+ + | Guanakito uMeller | ECON | Unknown | | + + +---------+ + | Leila Vera | ECON | Unknown | | + + +---------+ + Care Team Providers + +------+ + | Care Spinning Mule Operator Name | Role | Phone | + [...] cardiac valve | | | | | [address] | disease unspecified | | | | [...] | | | | | | [place] [id number] | | | | | | [phone] | | | | | | | [...] Isabel Vera Date of : 1930 | [facility] | | Performing Physician: [...] MV A Thomas: 0.33 m/s MV Dec Blair: 5.25 m/s2 | | | MV DecT: [...] | 18.53 mmHg TR Vmax: 2.15 m/s Operations Vice President: Authenticated | | | by: Minerva [place] Report Date/Time: 09-14-2018 20:3:30 | | + + + + + | Procedure Note | + + | Isaiah Sanford Results In - 09/14/2018 8:10 PM PDT Patient Name: Haile Vera of | | : 1930Accession: [id number] Physician: Minerva | | Gopiamara INDICATIONS------ | [...] | | cmLVPWd: 1.19 cmLVOT Area: 2.42 yt3CVGV Diam: 1.75 cm%FS: 25.63 %EF(Teich): | | 51.74 %ESV(Teich): 20.77 mlLVIDs: 2.42 cmSV(Teich): 22.28 mlRV Minor: 4.84 | | cmLVEF MOD A4C: 61.74 %SV MOD A4C: 27.87 mlLVEDV MOD A4C: 45.14 mlLVLd A4C: 5.68 | | cmLVESV MOD A4C: 17.26 mlLVLs A4C: 4.53 cmLAESV(A-L): 94.00 mlLAESV Index (A-L): | | 66.66 ml/m2LAAs A2C: 20.68 [id number] A-L A2C: 65.68 mlLALs A2C: 5.53 cmLAAs A4C: | | 29.60 lg3MONWN A-L A4C: 106.20 mlLALs A4C: 7.00 cmRAAs: 39.48 rc3LQAQI A-L: | | 177.47 mlRAESV MOD: 169.93 mlRALs: 7.45 cmTAPSE: 1.51 cmAV maxP.03 mmHgAV | | meanP.30 mmHgAV Vmax: 2.45 m/Jonathan Vmean: 1.89 m/Jonathan VTI: 48.10 cmAVA Vmax: | | 0.85 cm2AVA (VTI): 0.89 wd3MNZI (Vmax): 0.00 cm2/m2AVAI (VTI): 0.00 cm2/m2LVOT | | maxP.98 mmHgLVOT meanP.70 mmHgLVSI Dopp: 30.68 ml/m2LVSV Dopp: 43.25 | | mlLVOT Vmax: 0.86 m/sLVOT Vmean: 0.61 m/sLVOT VTI: 17.86 cmMV A Thomas: 0.33 m/sMV | | Dec Blair: 5.25 m/s2MV DecT: 150.95 msMV E Thomas: 0.79 m/sMV E/A Ratio: 2.35 MV | | PHT: 43.77 msMVA By PHT: 5.02 hi6Rlovgk e': 0.05 m/sSeptal E/e': 15.70 Lateral | [...] A Thomas: 0.33 m/s | |MV Dec Blair: 5.25 m/s2 | |MV DecT: 150.95 ms [...] |TR Vmax: 2.15 m/s | | | |Operations Vice President: | |Authenticated by: Minerva Hernandez | |Report [...] JEAN-CLAUDE EVANGELISTA | [address] | [facility] [address] | | + + + + + in this encounter Visit Diagnoses + + | Diagnosis | + + | Aortic valve stenosis, etiology of cardiac valve disease unspecified | + +"
--- OUTSIDE RECORDS SUMMARY | ~2018-09-27 | XMS | Encounter Summary ---
Demographics + + + | Address | [address] | | | [place] [address] | + + + | Home Phone | | + + + | Preferred Language | Unknown | + + + | Marital Status | | + + + | Advent Affiliation | 1077 | + + + | Race | Unknown | + + + | Ethnic Group | Unknown | + + + Author + + + | Author | [facility] | + + + | Organization | [facility] | + + + | Address [...] Team Providers + +------+ + | Care Manager Of Project Management Name | Role | Phone | + [...] [place] | | | | | | [address] | | | | | | [phone] | | | +--------+ + + + [...] | | | | | | [place] [id number] | | | | | | [phone] | | | | | | | | +--------+---------+ + + + as of this encounter Visit Diagnoses Not on filein this encounter"
--- OUTSIDE RECORDS SUMMARY | ~2018-09-27 | XMS | Encounter Summary ---
Demographics + + + | Address | [address] | | | [place] [address] | + + + | Home Phone | | + + + | Preferred Language | Unknown | + + + | Marital Status | | + + + | Presybeterian Affiliation | 1077 | + + + | Race | Unknown | + + + | Ethnic Group | Unknown | + + + Author + + + | Author | [facility] | + + + | Organization | [facility] [employer] [facility] | + + + | Address [...] Team Providers + +------+ + | Care Computer Applications Developer Name | Role | Phone | + [...] + + | 08/16/ | Office | [facility] | Minerva Mosher, | Chronic atrial | | 2019 | Visit | Cardiology Florentino | [address] | fibrillation (HCC) | | | | [address] | [address] Blanco, | (Primary Dx); | | | | [facility] [address] | [place] [address] | Rheumatoid arthritis | | | | [place] [address] | [phone] | involving multiple | | | | [phone] | | sites with positive | | | | | | rheumatoid factor | | | | | | (HCC); Essential | | | | | | hypertension; | | | | | | Chronic diastolic | | | | | | congestive heart | | | | | | failure ([facility]); | | | | | [...] to use metolazone. Previously was admitted to [facility] on May 10-2017 secondary to [...] Patient was seen after being discharged from [facility] due to decompensated hermes estive [...] mouth 2 (two) times daily. Nebulizer (medical claims examiner) 1 each by Does not apply route [...] Reactions Diphenhydramine Hallucinations Developed hallucinations when taking lpux-czk-xbbsgvy sleep medications with diphenhydram ine Oxybutynin Hallucinations [...] problems. 1. Chronic diastolic congestive heart failure [facility] class III, stage C. Currently euvolemic. 2. Symptomatic severe aortic stenosis. 3. Significant visual hallucination. Improved. 4. Significant pulmonary disease with significant decrease in DLCO. Patient is on home O2 a t nighttime. 5. Recent bacterial pneumonia with recurrent worsening cough. 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 7. Chronic atrial fibrillation [...] | | | | | | [place] [id number] | | | | | | [phone] | | | | | | | [...]
--- OUTSIDE RECORDS SUMMARY | ~2018-09-27 | XMS | Clinical Summary ---
Demographics + + + | Address | [address] | | | [place] [address] | + + + | Home Phone | | + + + | Preferred Language | Unknown | + + + | Marital Status | Single | + + + | Sikhism Affiliation | Unknown | + + + | Race | Unknown | + + + | Ethnic Group | Other Race | + + + Author + + + | Author | [facility] | + + + | Organization | [facility] | + + + | Address | Unknown | + + + | Phone | Unavailable | + + + Care Team Providers + +------+ + | Care Home Care Manager Name | Role | Phone | + +------+ + PP | Unavailable | + +------+ + Source Comments TYLER is fully live on both [facility] Ambulatory and [facility] InPatient.[facility] Allergies Not on File Current Medications Not on file Active Problems Not on file Social History + +-------+ +--------+------+ | Tobacco Use | Types | Packs/Day | Years | Date | | | | | Used | | + +-------+ +--------+------+ | Never Assessed | | | | | + +-------+ +--------+------+ + + + | Sex Assigned at | Date Recorded | | | | + + + | Not on file | | + + + Plan of Treatment Not on file Results Not on filefrom Last 3 Months Insurance + +--------+ +--------+ + + | Payer | Benefi | Subscriber | Type | Phone | Address | | | t Plan | ID | | | | | | / | | | | | | | Group | | | | | + +--------+ +--------+ + + | MEDICARE | MEDICA | xxxxxxxxxx | Medica | +- | [address] | | | RE A & | | re | [phone] | [place] [address] | | | B | | | | | + +--------+ +--------+ + + | CIGNA | CIGNA | xxxxxxxxxx | PPO | | | + +--------+ +--------+ + + + +--------+ +--------+ + + | Guarantor Name | Accoun | Relation to | Date | Phone | Billing Address | | | t Type | Patient | of | | | | | | | | | | + +--------+ +--------+ + + | ISABEL GONZALEZ | Person | Self [birth year] Home: | [address] | | | al/Fam | | 1930 | [phone] | [place] [address] | | | [place] | | | [phone] | | + +--------+ +--------+ + +"
--- OUTSIDE RECORDS SUMMARY | ~2018-09-27 | XMS | Encounter Summary ---
Demographics + + + | Address | [address] | | | [place] [address] | + + + | Home Phone | | + + + | Preferred Language | Unknown | + + + | Marital Status | | + + + | Congregation Affiliation | 1077 | + + + | Race | Unknown | + + + | Ethnic Group | Unknown | + + + Author + + + | Author | [facility] | | | and [place] | + + + | Organization | [facility] | | | [...] Team Providers + +------+ + | Care Infrastructure Design Engineer Name | Role | Phone | + [...] [place] | | | | | [phone] | [place] [address] | | +--------+ + + + + [...] Jacobo | | | | | | [place], Level II | | | | | | [place] | | | | | | [address] | | | | | | | | +--------+---------+ + + + as of this encounter Results XR Chest AP Portable (07/17/20184) + + + | Narrative | Performed [...]
--- OUTSIDE RECORDS SUMMARY | ~2018-09-27 | XMS | Encounter Summary ---
Demographics + + + | Address | [address] | | | [place] [address] | + + + | Home Phone | | + + + | Preferred Language | Unknown | + + + | Marital Status | | + + + | Hindu Affiliation | 1077 | + + + | Race | Unknown | + + + | Ethnic Group | Unknown | + + + Author + + + | Author | [facility] | | | and [place] | + + + | Organization | [facility] | | | [...] Team Providers + +------+ + | Care Metal Crafts Teacher Name | Role | Phone | + +------+ + | Jhon Barbosa MD | PCP | | + [...] [place] | | | | | [phone] | [place] [address] | | +--------+ + + + + [...] 2018 | Visit | | MD Mohamud [place] | | | | | | [place], Level II | | | | | | [place] | | | | | | [address] | | | | | | | [...]
--- OUTSIDE RECORDS SUMMARY | ~2018-09-27 | XMS | Encounter Summary ---
Demographics + + + | Address | [address] | | | [place] [address] | + + + | Home Phone | | + + + | Preferred Language | Unknown | + + + | Marital Status | | + + + | Jew Affiliation | 1077 | + + + | Race | Unknown | + + + | Ethnic Group | Unknown | + + + Author + + + | Author | [facility] [employer] | + + + | Organization | [facility] [employer] | + + + | Address [...] Team Providers + +------+ + | Care Casualty Insurance Claim Adjuster Name | Role | Phone | + [...] cardiac valve | | | | | [address] | disease unspecified | | | | [...] | | | | | | [place] [address] | | | | | | [phone] | | | | | | | [...] Isabel Vera Date of : 1930 | [facility] | | Performing Physician: Minerva [...] MV A Thomas: 0.33 m/s MV Dec [place]: 5.25 m/s2 | | | MV DecT: [...] | 18.53 mmHg TR Vmax: 2.15 m/s Perinatal Technician: Authenticated | | | by: Minerva Hernandez Report Date/Time: 09-14-2018 20:3:30 | | + + + + + | Procedure Note | + + | Juvenal, Rad Results In - 09/14/2018 8:10 PM PDT Patient Name: Haile Vera of | | : 1930Accession: [id number] Physician: Minerva | | Alsamara INDICATIONS------ | [...] | | cmLVPWd: 1.19 cmLVOT Area: 2.42 ga6LCDG Diam: 1.75 cm%FS: 25.63 %EF(Teich): | | 51.74 %ESV(Teich): 20.77 mlLVIDs: 2.42 cmSV(Teich): 22.28 mlRV Minor: 4.84 | | cmLVEF MOD A4C: 61.74 %SV MOD A4C: 27.87 mlLVEDV MOD A4C: 45.14 mlLVLd A4C: 5.68 | | cmLVESV MOD A4C: 17.26 mlLVLs A4C: 4.53 cmLAESV(A-L): 94.00 mlLAESV Index (A-L): | | 66.66 ml/m2LAAs A2C: 20.68 sc6DRQIR A-L A2C: 65.68 mlLALs A2C: 5.53 cmLAAs A4C: | | 29.60 qc6LIKAW A-L A4C: 106.20 mlLALs A4C: 7.00 cmRAAs: 39.48 nb2ISKLL A-L: | | 177.47 mlRAESV MOD: 169.93 mlRALs: 7.45 cmTAPSE: 1.51 cmAV maxP.03 mmHgAV | | meanP.30 mmHgAV Vmax: 2.45 m/Jonathan Vmean: 1.89 m/Jonathan VTI: 48.10 cmAVA Vmax: | | 0.85 cm2AVA (VTI): 0.89 ki0ZDMT (Vmax): 0.00 cm2/m2AVAI (VTI): 0.00 cm2/m2LVOT | | maxP.98 mmHgLVOT meanP.70 mmHgLVSI Dopp: 30.68 ml/m2LVSV Dopp: 43.25 | | mlLVOT Vmax: 0.86 m/sLVOT Vmean: 0.61 m/sLVOT VTI: 17.86 cmMV A Thomas: 0.33 m/sMV | | Dec [place]: 5.25 m/s2MV DecT: 150.95 msMV E Thomas: 0.79 m/sMV E/A Ratio: 2.35 MV | | PHT: 43.77 msMVA By PHT: 5.02 or0Fqimqh e': 0.05 m/sSeptal E/e': 15.70 Lateral | [...] A Thomas: 0.33 m/s | |MV Dec [place]: 5.25 m/s2 | |MV DecT: 150.95 ms [...] |TR Vmax: 2.15 m/s | | | |Perinatal Technician: | |Authenticated by: Minerva Hernandez | |Report [...] | + + + + + | [facility] | [address] | [place] [address] | | + + + + + in this encounter Visit Diagnoses + + | Diagnosis | + + | Aortic valve stenosis, etiology of cardiac valve disease unspecified | + +"
--- OUTSIDE RECORDS SUMMARY | ~2018-09-27 | XMS | Encounter Summary ---
Demographics + + + | Address | [address] | | | [place] [address] | + + + | Home Phone | | + + + | Preferred Language | Unknown | + + + | Marital Status | | + + + | Restorationist Affiliation | 1077 | + + + | Race | Unknown | + + + | Ethnic Group | Unknown | + + + Author + + + | Author | [facility] | | | and [place] | + + + | Organization | [facility] | | [...] Team Providers + +------+ + | Care Brine Process Operator Name | Role | Phone | [...] [place] | | | | | [phone] | [place] [address] | | +--------+ + + + + [...] 2018 | Visit | | MD Mohamud [place] | | | | | | [place], Level II | | | | | | [place] | | | | | | [address] | | | | | | | [...]
--- OUTSIDE RECORDS SUMMARY | ~2018-09-27 | XMS | Encounter Summary ---
Demographics + + + | Address | [address] | | | [place] [address] | + + + | Home Phone | | + + + | Preferred Language | Unknown | + + + | Marital Status | | + + + | Mu-Ism Affiliation | 1077 | + + + | Race | Unknown | + + + | Ethnic Group | Unknown | + + + Author + + + | Author | [facility] | | | and [place] | + + + | Organization | [facility] | | | [...] Team Providers + +------+ + | Care Oven Roaster Name | Role | Phone | + [...] [place] | | | | | [phone] | [place] [address] | | +--------+ + + + + [...] 2018 | Visit | | MD Mohamud [place] | | | | | | [place], Level II | | | | | | [place] | | | | | | [address] | | | | | | | [...]
--- OUTSIDE RECORDS SUMMARY | ~2018-09-27 | XMS | Encounter Summary ---
Demographics + + + | Address | [address] | | | [place] [address] | + + + | Home Phone | | + + + | Preferred Language | Unknown | + + + | Marital Status | | + + + | Voodoo Affiliation | 1077 | + + + | Race | Unknown | + + + | Ethnic Group | Unknown | + + + Author + + + | Author | [facility] | | | and [place] | + + + | Organization | [facility] | | | and [place] | + + + | Address | Unknown | + + + | Phone | Unavailable | + + + Support + + +---------+ + | Name | Relationship | Address | Phone | + + +---------+ + | Cilfford Vera | ECON | Unknown | | + + +---------+ + | Sherry Smith | ECON | Unknown | Unavailable | + + +---------+ + Care Team Providers + +------+ + | Care Ict Security Specialist Name | Role | Phone | + [...] [place] | | | | | [phone] | [place] [address] | | +--------+ + + + + [...] 2018 | Visit | | MD Mohamud [place] | | | | | | Balw[place], Level II | | | | | | [place] | | | | | | [address] | | | | | | | [...]
--- OUTSIDE RECORDS SUMMARY | ~2018-09-27 | XMS | Clinical Summary ---
Demographics + + + | Address | [address] | | | [place] [address] | + + + | Home Phone | | + + + | Preferred Language | Unknown | + + + | Marital Status | | + + + | Congregational Affiliation | 1077 | + + + | Race | Unknown | + + + | Ethnic Group | Unknown | + + + Author + + + | Author | [facility] | + + + | Organization | [facility] [employer] | + + + | Address [...] Team Providers + +------+ + | Care Instructional Facilitator Name | Role | Phone | + [...] taking | | | | | | [id number] | | | | | | sleep [...] Assessment & Plan: Hx COPD, managed by Buckle AssemblerDr | | | + + Resolved Problems [...] | Visit | | MD | fibrillation ([facility]) | | | | | | (Primary Dx); | | | | | | Rheumatoid arthritis | | | | | | involving multiple | | | | | | sites with positive | | | | | | rheumatoid factor | | | | | | ([facility]); Essential | | | | | | hypertension; | | | | | | Chronic diastolic | | | | | | congestive heart | | | | | | failure ([facility]); | | | | | | [...] | | | | | | [place] [address] | | | | | | [phone] | | | | | | | [...] in size and normal systolic function | [facility] | | EF 65-70%. 2. There [...] Elodia Gonzalez Date of : 1930 | [facility] | | Performing Physician: Minerva Hernandez [...] MV A Thomas: 0.33 m/s MV Dec [place]: 5.25 m/s2 | | | MV DecT: [...] | 18.53 mmHg TR Vmax: 2.15 m/s Printing Press Operator: Authenticated | | | by: Minerva Hernandez Report Date/Time: 09-14-2018 20:3:30 | | + + + + + | Procedure Note | + + | Juvenal, Rad Results In - 09/14/2018 8:10 PM PDT Patient Name: Haile Gonzalez of | | : 1930Accession: [id number] Physician: Minerva | | Alsamara INDICATIONS------ | [...] | | cmLVPWd: 1.19 cmLVOT Area: 2.42 fc3SRAQ Diam: 1.75 cm%FS: 25.63 %EF(Teich): | | 51.74 %ESV(Teich): 20.77 mlLVIDs: 2.42 cmSV(Teich): 22.28 mlRV Minor: 4.84 | | cmLVEF MOD A4C: 61.74 %SV MOD A4C: 27.87 mlLVEDV MOD A4C: 45.14 mlLVLd A4C: 5.68 | | cmLVESV MOD A4C: 17.26 mlLVLs A4C: 4.53 cmLAESV(A-L): 94.00 mlLAESV Index (A-L): | | 66.66 ml/m2LAAs A2C: 20.68 yb0MNHGJ A-L A2C: 65.68 mlLALs A2C: 5.53 cmLAAs A4C: | | 29.60 vo5NBMXV A-L A4C: 106.20 mlLALs A4C: 7.00 cmRAAs: 39.48 gz3UOLRO A-L: | | 177.47 mlRAESV MOD: 169.93 mlRALs: 7.45 cmTAPSE: 1.51 cmAV maxP.03 mmHgAV | | meanP.30 mmHgAV Vmax: 2.45 m/Jonathan Vmean: 1.89 m/Jonathan VTI: 48.10 cmAVA Vmax: | | 0.85 cm2AVA (VTI): 0.89 bn1WCTW (Vmax): 0.00 cm2/m2AVAI (VTI): 0.00 cm2/m2LVOT | | maxP.98 mmHgLVOT meanP.70 mmHgLVSI Dopp: 30.68 ml/m2LVSV Dopp: 43.25 | | mlLVOT Vmax: 0.86 m/sLVOT Vmean: 0.61 m/sLVOT VTI: 17.86 cmMV A Thomas: 0.33 m/sMV | | Dec [place]: 5.25 m/s2MV DecT: 150.95 msMV E Thomas: 0.79 m/sMV E/A Ratio: 2.35 MV | | PHT: 43.77 msMVA By PHT: 5.02 mp3Hiwcbz e': 0.05 m/sSeptal E/e': 15.70 Lateral | [...] A Thomas: 0.33 m/s | |MV Dec [place]: 5.25 m/s2 | |MV DecT: 150.95 ms [...] |TR Vmax: 2.15 m/s | | | |Printing Press Operator: | |Authenticated by: Minerva Hernandez | |Report [...] | + + + + + | [facility] | [address] | [place] [address] | | + + + + + [...] +------+-------+ + | MEDICARE | MEDICA | [id number] | | | [address] | | | RE | | | | [place] [address] | | | IP-OP | | | | | + +--------+ +------+-------+ + | CIGNA | CIGNA | [id number] | | | | | | - [...] | | | [place] | | | [address]35 | [address] | + +--------+ +--------+ + +
--- OUTSIDE RECORDS SUMMARY | ~2018-09-27 | XMS | Encounter Summary ---
Demographics + + + | Address | [address] | | | [place] [address] | + + + | Home Phone | | + + + | Preferred Language | Unknown | + + + | Marital Status | | + + + | Scientologist Affiliation | 1077 | + + + | Race | Unknown | + + + | Ethnic Group | Unknown | + + + Author + + + | Author | [facility] | | | and [place] | + + + | Organization | [facility] | | [...] Team Providers + +------+ + | Care Linux Unix Administrator Name | Role | Phone | + [...] [place] | | | | | [phone] | [place] [address] | | +--------+ + + + + [...] 2018 | Visit | | MD Mohamud Craig | | | | | | [place], Level II | | | | | | [place] | | | | | | [address] | | | | | | | [...]
--- OUTSIDE RECORDS SUMMARY | ~2018-09-27 | XMS | Encounter Summary ---
Demographics + + + | Address | [address] | | | [place] [address] | + + + | Home Phone | | + + + | Preferred Language | Unknown | + + + | Marital Status | | + + + | Gnosticist Affiliation | 1077 | + + + | Race | Unknown | + + + | Ethnic Group | Unknown | + + + Author + + + | Author | [email or web address] | + + + | Organization | [facility] [employer] [facility] | + + + | Address [...] Team Providers + +------+ + | Care Chainman Name | Role | Phone | + [...] [place] | | | | | | [address] | | | | | | [phone] | | | +--------+ + + + [...] | | | | | | [place] [address] | | | | | | [phone] | | | | | | | | +--------+---------+ + + + as of this encounter Visit Diagnoses Not on filein this encounter"
--- OUTSIDE RECORDS SUMMARY | ~2018-09-27 | XMS | Encounter Summary ---
Demographics + + + | Address | [address] | | | [place] [address] | + + + | Home Phone | | + + + | Preferred Language | Unknown | + + + | Marital Status | | + + + | Holiness Affiliation | 1077 | + + + | Race | Unknown | + + + | Ethnic Group | Unknown | + + + Author + + + | Author | [facility] | + + + | Organization | [facility] [employer] [facility] | + + + | Address [...] Team Providers + +------+ + | Care Dipping Machine Operator Name | Role | Phone [...] cardiac valve | | | | | [address] | disease unspecified | | | | [...] | | | | | | [place] [address] | | | | | | [phone] | | | | | | | [...] Isabel Vera Date of : 1930 | [facility] | | Performing Physician: Minerva Hernandez [...] MV A Thomas: 0.33 m/s MV Dec [place]: 5.25 m/s2 | | | MV DecT: [...] | 18.53 mmHg TR Vmax: 2.15 m/s Twisting Frame Changer: Authenticated | | | by: Minerva Nguyễnlititz Report Date/Time: 09-14-2018 20:3:30 | | + + + + + | Procedure Note | + + | Isaiah Sanford Results In - 09/14/2018 8:10 PM PDT Patient Name: Haile Vera of | | : 1930Accession: [id number] Physician: Minerva | | Gopiamara INDICATIONS------ | [...] | | cmLVPWd: 1.19 cmLVOT Area: 2.42 ry6UNXC Diam: 1.75 cm%FS: 25.63 %EF(Teich): | | 51.74 %ESV(Teich): 20.77 mlLVIDs: 2.42 cmSV(Teich): 22.28 mlRV Minor: 4.84 | | cmLVEF MOD A4C: 61.74 %SV MOD A4C: 27.87 mlLVEDV MOD A4C: 45.14 mlLVLd A4C: 5.68 | | cmLVESV MOD A4C: 17.26 mlLVLs A4C: 4.53 cmLAESV(A-L): 94.00 mlLAESV Index (A-L): | | 66.66 ml/m2LAAs A2C: 20.68 ib6AYXGG A-L A2C: 65.68 mlLALs A2C: 5.53 cmLAAs A4C: | | 29.60 cx1RFWPL A-L A4C: 106.20 mlLALs A4C: 7.00 cmRAAs: 39.48 oj6FIWGN A-L: | | 177.47 mlRAESV MOD: 169.93 mlRALs: 7.45 cmTAPSE: 1.51 cmAV maxP.03 mmHgAV | | meanP.30 mmHgAV Vmax: 2.45 m/Jonathan Vmean: 1.89 m/Jonathan VTI: 48.10 cmAVA Vmax: | | 0.85 cm2AVA (VTI): 0.89 uz2YXHG (Vmax): 0.00 cm2/m2AVAI (VTI): 0.00 cm2/m2LVOT | | maxP.98 mmHgLVOT meanP.70 mmHgLVSI Dopp: 30.68 ml/m2LVSV Dopp: 43.25 | | mlLVOT Vmax: 0.86 m/sLVOT Vmean: 0.61 m/sLVOT VTI: 17.86 cmMV A Thomas: 0.33 m/sMV | | Dec [place]: 5.25 m/s2MV DecT: 150.95 msMV E Thomas: 0.79 m/sMV E/A Ratio: 2.35 MV | | PHT: 43.77 msMVA By PHT: 5.02 mu3Gvhmzd e': 0.05 m/sSeptal E/e': 15.70 Lateral | [...] A Thomas: 0.33 m/s | |MV Dec [place]: 5.25 m/s2 | |MV DecT: 150.95 ms [...] |TR Vmax: 2.15 m/s | | | |Twisting Frame Changer: | |Authenticated by: Minerva Hernandez | |Report [...] [facility] | [address] | [facility] [address] | | + + + + + in this encounter Visit Diagnoses + + | Diagnosis | + + | Aortic valve stenosis, etiology of cardiac valve disease unspecified | + +"
--- OUTSIDE RECORDS SUMMARY | ~2018-09-27 | XMS | Encounter Summary ---
Demographics + + + | Address | [address] | | | [place] [address] | + + + | Home Phone [...] Team Providers + +------+ + | Care Benefits Analyst Name | Role | Phone | + [...] [place] | | | | | [phone] | [place] [address] | | +--------+ + + + + [...] Jacobo | | | | | | [place], Level II | | | | | | [place] | | | | | | [address] | | | | | | | | +--------+---------+ + + + as of this encounter Results XR Chest AP Portable (07/17/20182) + + + | Narrative | Performed [...]
--- OUTSIDE RECORDS SUMMARY | ~2018-09-27 | XMS | Clinical Summary ---
Demographics + + + | Address | [address] | | | [place] [address] | + + + | Home Phone | | + + + | Preferred Language | Unknown | + + + | Marital Status | | + + + | Confucianism Affiliation | 1077 | + + + | Race | Unknown | + + + | Ethnic Group | Unknown | + + + Author + + + | Author | [facility] | | | and [place] | + + + | Organization | [facility] | | | [...] Team Providers + +------+ + | Care Heating Unit Installer Name | Role | Phone | + [...] | | 2019 | Orders | | MD Evaristo | | +--------+ + + + + | 07/17/ | Imaging | | Provider, | | | 2018 | Exam | | MD Evaristo | | +--------+ + + + + | 07/17/ | Imaging | | Provider, | | | 2019 | Exam | | MD Evaristo | | +--------+ + + + + | 07/12/ | Imaging | | Provider, | | | 2019 | Exam | | MD Evaristo | | +--------+ + + + + [...] 1 DOSE | 05/27/2012 | | | (ZOSTAVAShyanne) | | | + + + + [...] Jacobo | | | | | | [place], Level II | | | | | | [place] | | | | | | [address] | | | | | | | [...] for this | | | e | 2244 PST | | procedure are in the [...] for this | | | e | 2139 PST | | procedure are in the | | | | | | results section. | + +--------+ + + + from Last 3 Months Results XR Chest AP Portable (07/17/20182244)Only the most recent of 3 results within [...] +--------+ +---------+ | MEDICARE | MEDICA | [id number] | Medica | [phone]- | | | | RE | | re | [phone] | | | | PART A | | | | | | | AND B | | | | | + +--------+ +--------+ +---------+ | MEDICARE SUPPLEMENT | MEDICA | [id number] | Indemn | [phone] | | | OTHER | RE | [...] | [place] | | | [phone] | [address] | + +--------+ +--------+ + +
--- OUTSIDE RECORDS SUMMARY | ~2018-09-27 | XMS | Clinical Summary ---
Demographics + + + | Address | [address] | | | [place] [address] | + + + | Home Phone [...] + + + | Author | [facility] | | | and [place] | + + + | Organization | [facility] | | | and [...] Team Providers + +------+ + | Care Bonding Machine Setter Name | Role | Phone | + [...] Jacobo | | | | | | [place], Level II | | | | | | [place] | | | | | | [address] | | | | | | | [...] +--------+ +---------+ | MEDICARE | MEDICA | [id number] | Medica | [phone]- | | | | RE | | re | [phone] | | | | PART A | | | | | | | AND B | | | | | + +--------+ +--------+ +---------+ | MEDICARE SUPPLEMENT | MEDICA | [id number] | Indemn | [id number] | | | [...] | [place] | | | 0861 | [address] | + +--------+ +--------+ + +
--- OUTSIDE RECORDS SUMMARY | ~2018-09-27 | XMS | Clinical Summary ---
Demographics + + + | Address | [address] | | | [place] [address] | + + + | Home Phone | | + + + | Preferred Language | Unknown | + + + | Marital Status | Single | + + + | Yarsani Affiliation | Unknown | + + + | Race | Unknown | + + + | Ethnic Group | Other Race | + + + Author + + + | Author | [facility] | + + + | Organization | [facility] | + + + | Address | Unknown | + + + | Phone | Unavailable | + + + Care Team Providers + +------+ + | Care Technical Report Writer Name | Role | Phone | + +------+ + PP | Unavailable | + +------+ + Source Comments TYLER is fully live on both [facility] and [facility] InPatient.[facility] Allergies Not on File Current Medications Not [...] | Medica | +- | [address] | | | RE A & | | re | [phone] | [place] [address] | | | B | | | [...] | | al/Fam | | 1930 | [phone] [place] [address] | | | [place] | | | [address] | | + +--------+ +--------+ + +"
[~2018-09-27 12:39] MED LIST changes: +ALENDRONATE SOD70 MG PO; +CARTIA XT240 MG PO; +CORTIZONE-1028 G1 TOP; +METOLAZONE2.5 MG PO
--- OUTSIDE RECORDS SUMMARY | 2018-09-27 12:42 | XMS ---
PreManage Notification: ELODIA GONZALEZ Security Bookkeeper Events No recent Security Events currently on file CRITERIA MET - 6 ED Visits in 6 Months - [facility] - Has Care Guidelines - [facility] - 2 Visits in 30 Days CARE PROVIDERS JUVE AGUIRRE 05/11/2018-Current PHONE: Unknown Jose Antonio Gonzales MD Primary Care Current PHONE: Unknown orjaved Case or Ship Worker Current PHONE: Unknown Denise GONZALES Current PHONE: Unknown Dot has no Care Guidelines for this patient. Care History Medical/Surgical 05/11/2018 [facility] - Patient is currently established with [facility]. If patient is seen in the ED during business hours. Please contact CHWs at [facility]. Care Recommendation: This patient has had 5 [...] providing care. E.D. VISIT COUNT (12 MO.) 6 [facility]. TOTAL 6 NOTE: Visits indicate total known visits. ED/UCC VISIT TRACKING (12 MO.) 09/27/2018 12:40 [facility] [place] TYPE: Emergency COMPLAINT: - SOB 09/13/2018 19:14 [facility] [place] TYPE: Emergency COMPLAINT: - SOB 07/17/2018 19:39 [facility] [place] TYPE: Emergency COMPLAINT: - SOB 07/12/2018 20:59 [facility] [place] TYPE: Emergency COMPLAINT: - ASTHMA DIAGNOSES: - Shortness of breath - Other alf (current) drug therapy - Allergy status to [...] Allergy status to sulfonamides status - Other alf (current) drug therapy - Heart failure, unspecified - Dyspnea, unspecified - Chronic obstructive pulmonary disease, unspecified INPATIENT VISIT TRACKING (12 MO.) 09/13/2018 23:15 [facility] [place] TYPE: Medical Surgical COMPLAINT: - DECOMPENSATED HEART FAILURE DIAGNOSES: - Dependence on supplemental oxygen - Chronic obstructive pulmonary disease, unspecified - Bronchiectasis, uncomplicated - Rheumatoid arthritis, unspecified - Dysphagia, oropharyngeal phase - Hypertensive heart disease with heart failure - Nonrheumatic aortic (valve) stenosis - Chronic respiratory failure with hypoxia - oysterman (current) use of anticoagulants - Chronic atrial fibrillation - Acute on chronic diastolic (congestive) heart failure 07/17/2018 22:[address] 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
--- NOTE | 2018-09-27 15:38 | EKG ---
[facility] [address] [place] [address] Signed Atrial fibrillation with premature ventricular or aberrantly conducted complexes Incomplete right bundle branch block ST \T\ T wave abnormality, consider anterolateral ischemia Abnormal ECG When compared with ECG of 13-SEP-2018 19:19, Non-specific change in ST segment in Anterior leads Confirmed by LATANYA RAJPUT DO ([id number]) on 09/27/2018 3:38:09 PM Electronically Signed By: LATANYA RAJPUT DO 09/27/18 1538 PATIENT NAME: ELODIA GONZALEZ JOSE M Electrocardiogram DATE OF : [birth year] PHYSICIAN: LATANYA RAJPUT DO REPORT #: [id number] REPORT IS CONFIDENTIAL AND NOT TO BE RELEASED WITHOUT AUTHORIZATION
== END 2018-09-27 17:43 | disposition home or self-care (01) ==
LOC: ED 12:39
DX: Z03.89 Encounter for observation for other suspected diseases and conditions ruled out (principal); J44.9 Chronic obstructive pulmonary disease, unspecified; I50.9 Heart failure, unspecified; Z87.891 Personal history of nicotine dependence; Z88.2 Allergy status to sulfonamides; Z79.899 Other long term (current) drug therapy; Z79.01 Long term (current) use of anticoagulants; Z79.52 Long term (current) use of systemic steroids
CPT/HCPCS: 71045; 80053; 84484; 85025; 85610; 85730; 93005; 93010; 99285-25

== ENCOUNTER 2018-11-08 14:29 | Emergency (ER) | payer MEDICARE, OTHER ==
[~2018-11-08] VITALS: Ht 149.9 cm; Wt 44.2 kg
--- OUTSIDE RECORDS SUMMARY | ~2018-11-08 | XMS | Encounter Summary ---
Demographics + + + | Address | [address] | | | [place] [address] | + + + | Home Phone | | + + + | Preferred Language | Unknown | + + + | Marital Status | | + + + | Hindu Affiliation | 1077 | + + + | Race | Unknown | + + + | Ethnic Group | Unknown | + + + Author + + + | Author | [facility] | + + + | Organization | [facility] | + + + | Address | Unknown | + + + | Phone | Unavailable | + + + Support + + +---------+ + | Name | Relationship | Address | Phone | + + +---------+ + | Clifford Vera | ECON | Unknown | | + + +---------+ + | Sherry Smith | ECON | Unknown | | + + +---------+ + | Guanakito Mueller | ECON | Unknown | | + + +---------+ + | Leila Vera | ECON | Unknown | | + + +---------+ + Care Team Providers + +------+ + | Care Principle Industrial Hygienist Name | Role | Phone | + +------+ + | John Barbosa MD | PCP | | + +------+ + Encounter Details +--------+ + + + + | Date | Type | Department | Care Team | Description | +--------+ + + + + | 09/14/ | Ancillary | [facility] | Caridad Conner MD | Aortic valve | | 2019 | Procedure | ECHO | [address] | stenosis, etiology | | | | | [place], [place] | of cardiac valve | | | | | [address] | disease unspecified | | | | | | | +--------+ + + + + Social History + + + +--------+ + | Tobacco Use | Types | Packs/Day | Years | Date | | | | | Used | | + + + +--------+ + | Former Smoker | Cigarettes | 0.5 | 13 | Quit: 06/27/1962 | + + + +--------+ + + +---+---+ + | Smokeless Tobacco: | | | Quit: | | Never Used | | | 01/10/19 | | | | | 63 | + +---+---+ + + + +---------+ + | Alcohol Use | Drinks/We | oz/Week | Comments | | | ek | | | + + +---------+ + | Yes | 0 | 0.0 | maybe 2 drinks a year | | | Standard | | | | | drinks or | | | | | | | | | | equivalen | | | | | t | | | + + +---------+ + + + + | Sex Assigned at | Date Recorded | | | | + + + | Not on file | | + + + as of this encounter Plan of Treatment +--------+---------+ + + + | Date | Type | Specialty | Care Team | Description | +--------+---------+ + + + | 01/24/ | Office | Cardiology | Minerva Hernandez, | | | 2019 | Visit | | MD Inga Huitron | | | | | | Dr Blanco, | | | | | | [place] [id number] | | | | | | [phone] | | | | | | | | +--------+---------+ + + + as of this encounter Procedures + +--------+ + + + | Procedure Name | Priori | Date/Time | Associated Diagnosis | Comments | | | ty | | | | + +--------+ + + + | ECHO OUTSIDE | Routin | 09/14/2018 | Aortic valve | Results for this | | INTERPRETATION | e | 10:57 AM | stenosis, etiology | procedure are in the | | STANDARD | | PDT | of cardiac valve | results section. | | | | | disease unspecified | | + +--------+ + + + in this encounter Results ECHO outside interpretation standard (09/14/2018 10:57 AM) + + + | Impressions | Performed At | + + + | 1. The left ventricle is normal in size and normal systolic function | [facility] | | EF 65-70%. 2. There is septal flattening in diastole and systole | RADIOLOGY | | which is consistent with elevated right ventricular pressure. 3. The | | | right ventricle is severely enlarged with impaired systolic function. | | | 4. The aortic valve is severely calcified with severe aortic | | | stenosis. 5. Torrential tricuspid regurgitation and mild pulmonary | | | hypertension. 6. There is no pericardial effusion, left pleural | | | effusion noted. 7. The flow patterns, measured by Doppler, indicate | | | systolic flow reversal suggestive of severe TR. | | + + + + + + | Narrative | Performed At | + + + | Patient Name: Isabel Vera Date of : 1930 | [facility] | | Performing Physician: Minerva Hernandez | RADIOLOGY | | | | | INDICATIONS HX CONCLUSIONS 1. The | | | left ventricle is normal in size and normal systolic function EF | | | 65-70%. 2. There is septal flattening in diastole and systole which | | | is consistent with elevated right ventricular pressure. 3. The right | | | ventricle is severely enlarged with impaired systolic function. 4. | | | The aortic valve is severely calcified with severe aortic stenosis. | | | 5. Torrential tricuspid regurgitation and mild pulmonary hypertension. | | | 6. There is no pericardial effusion, left pleural effusion noted. | | | 7. The flow patterns, measured by Doppler, indicate systolic flow | | | reversal suggestive of severe TR. FINDINGS -------- ECG rhythm: | | | Sinus rhythm. Study: A 2-dimensional transthoracic echocardiogram | | | with m-mode, spectral and color flow Doppler was perfomed. Study: | | | This was a technically adequate study. Left Ventricle: Overall left | | | ventricular systolic function is normal with, an EF between 65 - 70 %. | | | Left Ventricle: The left ventricle cavity size is normal. Left | | | Ventricle: There is mild concentric left ventricular hypertrophy. | | | Left Ventricle: There is septal flattening in diastole and systole | | | which is consistent with right ventricular pressure and volume | | | overload. Left Ventricle: Pseudonormal LV diastolic filling pattern, | | | consistent with elevated LA pressure and moderate dysfunction (Grade | | | II). Right Ventricle: The right ventricle is severely enlarged. | | | Right Ventricle: The right ventricular systolic function is moderately | | | impaired. Left Atrium: The left atrium is markedly enlarged. Right | | | Atrium: The right atrium is markedly enlarged. Aortic Valve: The | | | aortic valve is severely calcified. Aortic Valve: There is mild | | | aortic regurgitation. Aortic Valve: Severe aortic stenosis with | | | peak/mean pressure gradient of 24.04mmHg / 15.30mmHg, the aortic valve | | | area by continuity equation is 0.9cm . Aortic Valve: Aortic | | | valve is moderately thickened. Mitral Valve: Mild mitral | | | regurgitation is present. Mitral Valve: Mild mitral annular | | | calcification present. Tricuspid Valve: The tricuspid valve appears | | | structurally normal. Tricuspid Valve: Severe tricuspid regurgitation | | | present. Tricuspid Valve: There is mild pulmonary hypertension. | | | Tricuspid Valve: The right ventricular systolic pressure (pulmonary | | | artery systolic pressure), as measured by Doppler, is 38.53mmHg. | | | Pulmonic Valve: Pulmonic valve appears structurally normal. Pulmonic | | | Valve: Trace pulmonic regurgitation. Pericardium: There is no | | | pericardial effusion. Pericardium: Pleural effusion present. | | | IVC/Hepatic Veins: The IVC is dilated (>2.5cm) and collapses <50% with | | | sniff, consistent with central venous pressures of 15-20mmHg. | | | IVC/Hepatic Veins: The flow patterns, measured by Doppler, indicate | | | systolic flow reversal suggestive of severe TR. MEASUREMENTS | | | Ao asc: 2.51 cm Ao sinus: 2.[address] | | | junct: 1.93 cm IVC: 3.58 cm LA Diam: 4.54 cm | | | EDV(Teich): 43.06 ml IVSd: 1.20 cm LVIDd: 3.26 cm | | | LVPWd: 1.19 cm LVOT Area: 2.42 cm2 LVOT Diam: 1.75 cm | | | %FS: 25.63 % EF(Teich): 51.74 % ESV(Teich): 20.77 ml | | | LVIDs: 2.42 cm SV(Teich): 22.28 ml RV Minor: 4.84 cm | | | LVEF MOD A4C: 61.74 % SV MOD A4C: 27.87 ml LVEDV MOD | | | A4C: 45.14 ml LVLd A4C: 5.68 cm LVESV MOD A4C: 17.26 ml | | | LVLs A4C: 4.53 cm LAESV(A-L): 94.00 ml LAESV Index | | | (A-L): 66.66 ml/m2 LAAs A2C: 20.68 cm2 LAESV A-L A2C: | | | 65.68 ml LALs A2C: 5.53 cm LAAs A4C: 29.60 cm2 LAESV A-L | | | A4C: 106.20 ml LALs A4C: 7.00 cm RAAs: 39.48 cm2 RAESV | | | A-L: 177.47 ml RAESV MOD: 169.93 ml RALs: 7.45 cm | | | TAPSE: 1.51 cm AV maxP.03 mmHg AV meanP.30 | | | mmHg AV Vmax: 2.45 m/s AV Vmean: 1.89 m/s AV VTI: 48.10 | | | cm CAMERON Vmax: 0.85 cm2 CAMERON (VTI): 0.89 cm2 AVAI (Vmax): | | | 0.00 cm2/m2 AVAI (VTI): 0.00 cm2/m2 LVOT maxP.98 mmHg | | | LVOT meanP.70 mmHg LVSI Dopp: 30.68 ml/m2 LVSV Dopp: | | | 43.25 ml LVOT Vmax: 0.86 m/s LVOT Vmean: 0.61 m/s LVOT | | | VTI: 17.86 cm MV A Thomas: 0.33 m/s MV Dec Greenlee: 5.25 m/s2 | | | MV DecT: 150.95 ms MV E Thomas: 0.79 m/s MV E/A Ratio: | | | 2.35 MV PHT: 43.77 ms MVA By PHT: 5.02 cm2 Septal e': | | | 0.05 m/s Septal E/e': 15.70 Lateral e': 0.08 m/s Lateral | | | E/e': 9.48 RAP: 20 mmHg RVSP: 38.53 mmHg TR maxPG: | | | 18.53 mmHg TR Vmax: 2.15 m/s Surgical Garment Assembly Supervisor: Authenticated | | | by: Minerva Hernandez Report Date/Time: 09-14-2018 20:3:30 | | + + + + + | Procedure Note | + + | Juvenal, Rad Results In - 09/14/2018 8:10 PM PDT Patient Name: Haile Vera of | | : 1930Accession: [id number] Physician: Minerva | | Alsamara INDICATIONS------ | | -----HX ASCONCLUSIONS 1. The left ventricle is normal in size and normal | | systolic function EF 65-70%.2. There is septal flattening in diastole and systole which | | is consistent with elevated right ventricular pressure.3. The right ventricle is | | severely enlarged with impaired systolic function.4. The aortic valve is severely | | calcified with severe aortic stenosis.5. Torrential tricuspid regurgitation and mild | | pulmonary hypertension.6. There is no pericardial effusion, left pleural effusion noted. | | 7. The flow patterns, measured by Doppler, indicate systolic flow reversal suggestive | | of severe TR.FINDINGS--------ECG rhythm: Sinus rhythm.Study: A 2-dimensional | | transthoracic echocardiogram with m-mode, spectral and color flow Doppler was perfomed. | | Study: This was a technically adequate study.Left Ventricle: Overall left ventricular | | systolic function is normal with, an EF between 65 - 70 %. Left Ventricle: The left | | ventricle cavity size is normal. Left Ventricle: There is mild concentric left | | ventricular hypertrophy. Left Ventricle: There is septal flattening in diastole and | | systole which is consistent with right ventricular pressure and volume overload. Left | | Ventricle: Pseudonormal LV diastolic filling pattern, consistent with elevated LA | | pressure and moderate dysfunction (Grade II).Right Ventricle: The right ventricle is | | severely enlarged. Right Ventricle: The right ventricular systolic function is | | moderately impaired.Left Atrium: The left atrium is markedly enlarged.Right Atrium: The | | right atrium is markedly enlarged.Aortic Valve: The aortic valve is severely calcified. | | Aortic Valve: There is mild aortic regurgitation. Aortic Valve: Severe aortic stenosis | | with peak/mean pressure gradient of 24.04mmHg / 15.30mmHg, the aortic valve area by | | continuity equation is 0.9cm . Aortic Valve: Aortic valve is moderately | | thickened.Mitral Valve: Mild mitral regurgitation is present. Mitral Valve: Mild mitral | | annular calcification present.Tricuspid Valve: The tricuspid valve appears structurally | | normal. Tricuspid Valve: Severe tricuspid regurgitation present. Tricuspid Valve: There | | is mild pulmonary hypertension. Tricuspid Valve: The right ventricular systolic pressure | | (pulmonary artery systolic pressure), as measured by Doppler, is 38.53mmHg.Pulmonic | | Valve: Pulmonic valve appears structurally normal. Pulmonic Valve: Trace pulmonic | | regurgitation.Pericardium: There is no pericardial effusion. Pericardium: Pleural | | effusion present.IVC/Hepatic Veins: The IVC is dilated (>2.5cm) and collapses <50% with | | sniff, consistent with central venous pressures of 15-20mmHg. IVC/Hepatic Veins: The | | flow patterns, measured by Doppler, indicate systolic flow reversal suggestive of severe | | TR.MEASUREMENTS Ao asc: 2.51 cmAo sinus: 2.[address] junct: 1.93 | | cmIVC: 3.58 cmLA Diam: 4.54 cmEDV(Teich): 43.06 mlIVSd: 1.20 cmLVIDd: 3.26 | | cmLVPWd: 1.19 cmLVOT Area: 2.42 [id number] Diam: 1.75 cm%FS: 25.63 %EF(Teich): | | 51.74 %ESV(Teich): 20.77 mlLVIDs: 2.42 cmSV(Teich): 22.28 mlRV Minor: 4.84 | | cmLVEF MOD A4C: 61.74 %SV MOD A4C: 27.87 mlLVEDV MOD A4C: 45.14 mlLVLd A4C: 5.68 | | cmLVESV MOD A4C: 17.26 mlLVLs A4C: 4.53 cmLAESV(A-L): 94.00 mlLAESV Index (A-L): | | 66.66 ml/m2LAAs A2C: 20.68 [id number] A-L A2C: 65.68 mlLALs A2C: 5.53 cmLAAs A4C: | | 29.60 [id number] A-L A4C: 106.20 mlLALs A4C: 7.00 cmRAAs: 39.48 [id number] A-L: | | 177.47 mlRAESV MOD: 169.93 mlRALs: 7.45 cmTAPSE: 1.51 cmAV maxP.03 mmHgAV | | meanP.30 mmHgAV Vmax: 2.45 m/Jonathan Vmean: 1.89 m/Jonathan VTI: 48.10 cmAVA Vmax: | | 0.85 cm2AVA (VTI): 0.89 cc6GODJ (Vmax): 0.00 cm2/m2AVAI (VTI): 0.00 cm2/m2LVOT | | maxP.98 mmHgLVOT meanP.70 mmHgLVSI Dopp: 30.68 ml/m2LVSV Dopp: 43.25 | | mlLVOT Vmax: 0.86 m/sLVOT Vmean: 0.61 m/sLVOT VTI: 17.86 cmMV A Thomas: 0.33 m/sMV | | Dec Greenlee: 5.25 m/s2MV DecT: 150.95 msMV E Thomas: 0.79 m/sMV E/A Ratio: 2.35 MV | | PHT: 43.77 msMVA By PHT: 5.02 [id number] e': 0.05 m/sSeptal E/e': 15.70 Lateral | | e': 0.08 m/sLateral E/e': 9.48 RAP: 20 mmHgRVSP: 38.53 mmHgTR maxP.53 | | mmHgTR Vmax: 2.15 m/sSonographer: Authenticated by: Minerva Garcia Date/Time: | | 09-14-2018 20:3:30IMPRESSION:1. The left ventricle is normal in size and normal systolic | | function EF 65-70%.2. There is septal flattening in diastole and systole which is | | consistent with elevated right ventricular pressure.3. The right ventricle is severely | | enlarged with impaired systolic function.4. The aortic valve is severely calcified with | | severe aortic stenosis.5. Torrential tricuspid regurgitation and mild pulmonary | | hypertension.6. There is no pericardial effusion, left pleural effusion noted. 7. The | | flow patterns, measured by Doppler, indicate systolic flow reversal suggestive of severe | | TR. | |EDV(Teich): 43.06 ml | |IVSd: 1.20 cm | |LVIDd: 3.26 cm | |LVPWd: 1.19 cm | |LVOT Area: 2.42 cm2 | |LVOT Diam: 1.75 cm | |%FS: 25.63 % | |EF(Teich): 51.74 % | |ESV(Teich): 20.77 ml | |LVIDs: 2.42 cm | |SV(Teich): 22.28 ml | |RV Minor: 4.84 cm | |LVEF MOD A4C: 61.74 % | |SV MOD A4C: 27.87 ml | |LVEDV MOD A4C: 45.14 ml | |LVLd A4C: 5.68 cm | |LVESV MOD A4C: 17.26 ml | |LVLs A4C: 4.53 cm | |LAESV(A-L): 94.00 ml | |LAESV Index (A-L): 66.66 ml/m2 | |LAAs A2C: 20.68 cm2 | |LAESV A-L A2C: 65.68 ml | |LALs A2C: 5.53 cm | |LAAs A4C: 29.60 cm2 | |LAESV A-L A4C: 106.20 ml | |LALs A4C: 7.00 cm | |RAAs: 39.48 cm2 | |RAESV A-L: 177.47 ml | |RAESV MOD: 169.93 ml | |RALs: 7.45 cm | |TAPSE: 1.51 cm | |AV maxP.03 mmHg | |AV meanP.30 mmHg | |AV Vmax: 2.45 m/s | |AV Vmean: 1.89 m/s | |AV VTI: 48.10 cm | |CAMERON Vmax: 0.85 cm2 | |CAMERON (VTI): 0.89 cm2 | |AVAI (Vmax): 0.00 cm2/m2 | |AVAI (VTI): 0.00 cm2/m2 | |LVOT maxP.98 mmHg | |LVOT meanP.70 mmHg | |LVSI Dopp: 30.68 ml/m2 | |LVSV Dopp: 43.25 ml | |LVOT Vmax: 0.86 m/s | |LVOT Vmean: 0.61 m/s | |LVOT VTI: 17.86 cm | |MV A Thomas: 0.33 m/s | |MV Dec Greenlee: 5.25 m/s2 | |MV DecT: 150.95 ms | |MV E Thomas: 0.79 m/s | |MV E/A Ratio: 2.35 | |MV PHT: 43.77 ms | |MVA By PHT: 5.02 cm2 | |Septal e': 0.05 m/s | |Septal E/e': 15.70 | |Lateral e': 0.08 m/s | |Lateral E/e': 9.48 | |RAP: 20 mmHg | |RVSP: 38.53 mmHg | |TR maxP.53 mmHg | |TR Vmax: 2.15 m/s | | | |Surgical Garment Assembly Supervisor: | |Authenticated by: Minerva Hernandez | |Report Date/Time: 09-14-2018 20:3:30 | | | |IMPRESSION: | |1. The left ventricle is normal in size and normal systolic function EF 65-70%. | |2. There is septal flattening in diastole and systole which is consistent with elevated rig ht ventricular pressure. | |3. The right ventricle is severely enlarged with impaired systolic function. | |4. The aortic valve is severely calcified with severe aortic stenosis. | |5. Torrential tricuspid regurgitation and mild pulmonary hypertension. | |6. There is no pericardial effusion, left pleural effusion noted. | |7. The flow patterns, measured by Doppler, indicate systolic flow reversal suggestive of se blake TR. | + + + + + + + | Performing | Address | City/State/Zipcode | Phone Number | | Organization | | | | + + + + + | [facility] | [address] | [place] [address] | | + + + + + in this encounter Visit Diagnoses + + | Diagnosis | + + | Aortic valve stenosis, etiology of cardiac valve disease unspecified | + +"
--- OUTSIDE RECORDS SUMMARY | ~2018-11-08 | XMS | Encounter Summary ---
Demographics + + + | Address | [address] | | | [place] [address] | + + + | Home Phone | | + + + | Preferred Language | Unknown | + + + | Marital Status | | + + + | Islam Affiliation | 1077 | + + + | Race | Unknown | + + + | Ethnic Group | Unknown | + + + Author + + + | Author | [facility] [employer] | + + + | Organization | [facility] [employer] [facility] | + + + | Address [...] Team Providers + +------+ + | Care Stove Cleaner Name | Role | Phone | + [...] + + | 08/16/ | Office | [facility] | Minerva Mosher, | Chronic atrial | | 2019 | Visit | Cardiology Florent[facility] | [address] | fibrillation (HCC) | | | | [address] | [address] Blanco, | (Primary Dx); | | | | [facility] [address] | [place] [address] | Rheumatoid arthritis | | | | [place] [address] | [phone] | involving multiple | | | | [phone] | | sites with positive | | | | | | rheumatoid factor | | | | | | (HCC); Essential | | | | | | hypertension; | | | | | | Chronic diastolic | | | | | | congestive heart | | | | | | failure ([facility]); | | | | | | Severe [...] to use metolazone. Previously was admitted to [facility] on May 10-2017 secondary to [...] Patient was seen after being discharged from [facility] due to decompensated hermes estive heart failure. [...] mouth 2 (two) times daily. Nebulizer (medical underwriter) 1 each by Does not apply route [...] Reactions Diphenhydramine Hallucinations Developed hallucinations when taking cdjz-hqh-ovafuyc sleep medications with diphenhydram ine Oxybutynin Hallucinations [...] problems. 1. Chronic diastolic congestive heart failure [facility] class III, stage C. Currently euvolemic. 2. Symptomatic severe aortic stenosis. 3. Significant visual hallucination. Improved. 4. Significant pulmonary disease with significant decrease in DLCO. Patient is on home O2 a t nighttime. 5. Recent bacterial pneumonia with recurrent worsening cough. 6. 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 7. Chronic atrial fibrillation [...] 01/24/ | Office | Cardiology | Minerva Mosher, | | | 2018 | Visit | | MD Inga Huitron | | | | | | Dr Blanco, | | | | | | [place] [id number] | | | | | | [phone] | | | | | | | [...]
--- OUTSIDE RECORDS SUMMARY | ~2018-11-08 | XMS | Encounter Summary ---
Demographics + + + | Address | [address] | | | [place] [address] | + + + | Home Phone | | + + + | Preferred Language | Unknown | + + + | Marital Status | | + + + | Quaker Affiliation | 1077 | + + + | Race | Unknown | + + + | Ethnic Group | Unknown | + + + Author + + + | Author | [facility] | + + + | Organization | [facility] [employer] | + + + | Address [...] Team Providers + +------+ + | Care Lodge Officer Name | Role | Phone | + [...] + + | 11/01/ | Office | [facility] | Minerva Mosher, | Chronic atrial | | 2019 | Visit | Cardiology [facility] | [address] | fibrillation (HCC) | | | | [address] | Dr Blanco, | (Primary Dx); Severe | | | | [address] | [place] [address] | aortic stenosis; | | | | [place] [address] | [phone] | Chronic diastolic | | | | [phone] | | congestive heart | | | | | | failure (HCC); Mild | | | | | | pulmonic | | | | | | regurgitation and RV | | | | | | dysfunction by | | | | | | prior | | | | | | echocardiogram; | | | | | | Essential | | | | | | hypertension | +--------+---------+ + + + Social History [...] + + +---------+ + | No | | | | + + +---------+ + + + + | Sex Assigned at | Date Recorded | | | | + + + | Not on file | | + + + as of this encounter Last Filed Vital Signs + + + + | Vital Sign | Reading | Time Taken | + + + + | Blood Pressure | 122/68 | 11/01/2018 3:35 PM PDT | + + + + | Pulse | 70 | 11/01/2018 3:35 PM PDT | + + + + | Temperature | - | - | + + + + | Respiratory Rate | - | - | + + + + | Oxygen Saturation | 99% | 11/01/2018 3:35 PM PDT | + + + + | Inhaled Oxygen | - | - | | Concentration | | | + + + + | Weight | - | - | + + + + | Height | 149.9 cm (4' 11") | 11/01/2018 3:35 PM PDT | + + + + | Body Mass Index | - | - | + + + + in this encounter Progress Notes Minerva Mosher MD - 11/01/2018 3:30 PM PDTFormatting of this note may be different fro m the original. Date of visit: 11/01/2018 Primary Care Physician: JUVE AGUIRRE CHIEF COMPLAINT: Chief Complaint Patient presents with Follow-up 3 month HISTORY OF PRESENT ILLNESS: Isabel is 88 y.o. female here for here for follow up. Limited activity level. Good histor dann. Comes in with her family today. Was hospitalized again in August 2018 secondary to exacerbation of congestive heart failure. Continue to be short of breath. Currently using furosemide 40 mg twice daily and metolazon e 2.5 mg twice a week. More tired. Significant back and neck pain. Previously hospitalized from July 17-2018 secondary to bacterial pneumonia. Had septic shock and was placed on pressors short time. Recovered well however now feels we ak again coughing with productive sputum. No fever or chills. Previously was admitted to [facility] on May 10-2017 secondary to [...] Patient was seen after being discharged from [facility] due to decompensated hermes estive heart failure. Past medical history, SH, FH, and medications were reviewed in the chart. Medications: Outpatient Encounter Prescriptions as of 11/01/2018 Medication Sig Dispense Refill acetaminophen (TYLENOL) 500 MG tablet Take 500 mg by mouth every 6 (six) hours as neede d for Pain. albuterol (PROVENTIL HFA;VENTOLIN HFA) 108 (90 BASE) MCG/ACT inhaler Inhale 2 puffs int o the lungs every 4 (four) hours as needed for Wheezing. budesonide (PULMICORT) 0.5 MG/2ML nebulizer suspension Take 0.5 mg by nebulization 2 (t wo) times daily. Calcium Carb-Cholecalciferol (CALCIUM 500+D3 PO) Take by mouth. Cholecalciferol 2000 units CAPS Take 1 tablet by mouth daily. diltiazem (CARDIZEM CD) 240 MG 24 hr capsule Take 1 capsule by mouth every evening. 90 capsule 1 formoterol (PERFOROMIST) 20 MCG/2ML nebulizer solution Take 20 mcg by nebulization ever y 12 (twelve) hours. furosemide (LASIX) 40 MG tablet Take 40 mg by mouth 2 (two) times daily. gentamicin (GARAMYCIN) 0.3 % ophthalmic solution 1 drop every 4 (four) hours. ipratropium-albuterol (DUONEB) 0.5-2.5 mg/3mL Take 3 mLs [...] by mouth 2 (two) times daily. Nebulizer (biomedical equipment tech) 1 each by Does not apply route [...] by mouth daily. 1 tablet p.o. Qd calcium carbonate (TUMS EX) 750 MG chewable tablet Take 1 tablet by mouth daily. dextromethorphan-guaifenesin (MUCINEX DM) 30-600 MG per 12 hr tablet Take 1 tablet by m outh as needed. ketoconazole (NIZORAL) 2 % shampoo No facility-administered encounter medications on file as of 11/01/2018. Allergies Allergies Allergen Reactions Diphenhydramine Hallucinations Developed hallucinations when taking xyva-yha-elyidkd sleep medications with diphenhydram ine Oxybutynin Hallucinations Sulfa Antibiotics Nausea Only REVIEW OF SYSTEMS: Constitutional: Positive for increased fatigue. Weight has been stable. HEENT: Negative for nosebleeds, ear discharge, nasal congestion or soar throat. Eyes: Impaired vision. Respiratory: Positive for productive cough. Cardiovascular: As HPI. Gastrointestinal: Negative for nausea, vomiting, diarrhea, abdominal pain and blood in stoo l. Genitourinary: Negative for dysuria or hematuria. Musculoskeletal: Significant arthritic pain. Her extremity edema resolved. Skin: Negative for rash. Neurological: Negative for dizziness. No numbness. Positive for hallucinations. Hematological: No significant bruising. Psychiatric/Behavioral: Significant hallucination. PHYSICAL EXAM Vital Signs: BP 122/68 (BP Location: Right upper arm, Patient Position: Sitting) | Pulse 70 | Ht 1.499 m (4' 11") | SpO2 99% | BMI 24.22 kg/m GENERAL APPEARANCE: Alert, [...] Psych: Normal affect and mood. DATA Labs: 09/27/2018 BC 13.1, hemoglobin 12.8, platelet 257, sodium 136 potassium 3.7, chloride 94, bicarb 34, B UN 23, creatinine 0.59, GFR 96. Calcium 9.3, AST 13, ALT 15, troponin 1.3,. 07/23/2018 Sodium 135, potassium 5.0, chloride 95, [...] Normal hemodynami cs on RHC Limited Echo: 09/14/2018 1. The left ventricle is normal in size and normal systolic function EF 65-70%. 2. There is septal flattening in diastole and systole which is consistent with elevated rig ht ventricular pressure. 3. The right ventricle is severely enlarged with impaired systolic function. 4. The aortic valve is severely calcified with severe aortic stenosis. 5. Torrential tricuspid regurgitation and mild pulmonary hypertension. 6. There is no pericardial effusion, left pleural effusion noted. 7. The flow patterns, measured by Doppler, indicate systolic flow reversal suggestive of se blake TR. 11/25/2016 Severe aortic calcification with low gradient [...] RVSP 54 mmHg. no pericardial effusion. Echo:06/19/2015 ([facility]): biplane LVEF 61%, marked bi-Atrial enlargement, mild AI, mild MR, mild TR, trace PI, est systolic PAP 41mmHg. Last stress test, Adenosine, 03/03/2005, reveals infero-lateral ischemia, ejection fraction 6 8%. Hx coarctation, surgically repaired 1962 ASSESSMENT: Patient is 88 y.o. female with the following medical problems. 1. Acute on chronic diastolic congestive heart failure NYH class III, stage C. 2. Symptomatic severe aortic stenosis. 3. Significant visual hallucination. 4. Severe tricuspid regurgitation. 5. Significant pulmonary disease with significant decrease in DLCO. Patient is on home O2 a t nighttime. 6. 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 7. Chronic atrial fibrillation on rate control strategy and anticoagulation. 8. History of coarctation repair. 9. Moderate pulmonary hypertension. 10. Patient is DO NOT RESUSCITATE now. Plan: Reviewed recent hospitalization records. Reviewed current medical therapy with the patient and her family at the bedside today. Cont inue to have visual hallucinations however less. Will increase furosemide to 80 mg in the morning 40 in the evening. Continue with metolazone twice a week. Continue with anticoagulation and rate control with diltiazem and metoprolol. Overall prognosis is guarded which I shared with the family and the patient. Previously. Patient was evaluated by TAVR team [...] | | | | | | [place] [id number] | | | | | | [phone] | | | | | | | | +--------+---------+ + + + as of this encounter Visit Diagnoses + + | Diagnosis | + + | Chronic atrial fibrillation (HCC) - Primary | + + | Atrial fibrillation | + + | Severe aortic stenosis | + + | Aortic valve disorders | + + | Chronic diastolic congestive heart failure (HCC) | + + | Chronic diastolic heart failure | + + | Mild pulmonic regurgitation and RV dysfunction by prior echocardiogram | + + | Pulmonary valve disorders | + + | Essential hypertension | + + | Unspecified essential hypertension | + +
--- OUTSIDE RECORDS SUMMARY | ~2018-11-08 | XMS | Encounter Summary ---
Demographics + + + | Address | [address] | | | [place] [address] | + + + | Home Phone | | + + + | Preferred Language | Unknown | + + + | Marital Status | | + + + | Baptist Affiliation | 1077 | + + + | Race | Unknown | + + + | Ethnic Group | Unknown | + + + Author + + + | Author | [facility] [employer] | + + + | Organization | [facility] [employer] | + + + | Address [...] Team Providers + +------+ + | Care Project Control Officer Name | Role | Phone | [...] | Aortic valve | | 2019 | Orders | ECHO | [address] | stenosis, etiology | | | | | [place], [place] | of cardiac valve | | | | | [address] | disease unspecified | | | | [...] Cardiology | Minerva Hernandez, | | | 2018 | Visit | | MD Inga Huitron | | | | | | Dr Blanco, | | | | | | [place] [id number] | | | | | | [phone] | | | | | | | | +--------+---------+ + + + as of this encounter Results ECHO outside interpretation standard [...] Isabel Vera Date of : 1930 | [facility] | | Performing Physician: Minerva [...] MV A Thomas: 0.33 m/s MV Dec [place]: 5.25 m/s2 | | | MV DecT: [...] | 18.53 mmHg TR Vmax: 2.15 m/s Science Job Titles: Authenticated | | | by: Minerva Nguyễnbremo bluff Report Date/Time: 09-14-2018 20:3:30 | | + + + + + | Procedure Note | + + | Isaiah Sanford Results In - 09/14/2018 8:10 PM PDT Patient Name: Haile Vera of | | : 1930Accession: [id number] Physician: Minerva | | [place] INDICATIONS------ | | -----HX ASCONCLUSIONS 1. The [...] | | cmLVPWd: 1.19 cmLVOT Area: 2.42 [id number] Diam: 1.75 cm%FS: 25.63 %EF(Teich): | | 51.74 %ESV(Teich): 20.77 mlLVIDs: 2.42 cmSV(Teich): 22.28 mlRV Minor: 4.84 | | cmLVEF MOD A4C: 61.74 %SV MOD A4C: 27.87 mlLVEDV MOD A4C: 45.14 mlLVLd A4C: 5.68 | | cmLVESV MOD A4C: 17.26 mlLVLs A4C: 4.53 cmLAESV(A-L): 94.00 mlLAESV Index (A-L): | | 66.66 ml/m2LAAs A2C: 20.68 [id number] A-L A2C: 65.68 mlLALs A2C: 5.53 cmLAAs A4C: | | 29.60 [id number] A-L A4C: 106.20 mlLALs A4C: 7.00 cmRAAs: 39.48 [id number] A-L: | | 177.47 mlRAESV MOD: 169.93 mlRALs: 7.45 cmTAPSE: 1.51 cmAV maxP.03 mmHgAV | | meanP.30 mmHgAV Vmax: 2.45 m/Jonathan Vmean: 1.89 m/Jonathan VTI: 48.10 cmAVA Vmax: | | 0.85 cm2AVA (VTI): 0.89 [id number] (Vmax): 0.00 cm2/m2AVAI (VTI): 0.00 cm2/m2LVOT | | maxP.98 mmHgLVOT meanP.70 mmHgLVSI Dopp: 30.68 ml/m2LVSV Dopp: 43.25 | | mlLVOT Vmax: 0.86 m/sLVOT Vmean: 0.61 m/sLVOT VTI: 17.86 cmMV A Thomas: 0.33 m/sMV | | Dec [place]: 5.25 m/s2MV DecT: 150.95 msMV E Thomas: 0.79 m/sMV E/A Ratio: 2.35 MV | | PHT: 43.77 msMVA By PHT: 5.02 [id number] e': 0.05 m/sSeptal E/e': 15.70 Lateral | [...] A Thomas: 0.33 m/s | |MV Dec [place]: 5.25 m/s2 | |MV DecT: 150.95 ms [...] |TR Vmax: 2.15 m/s | | | |Science Job Titles: | |Authenticated by: Minerva Hernandez | |Report [...] | + + + + + | [facility] | [address] | [facility] [address] | | + + + + + in this encounter Visit Diagnoses + + | Diagnosis | + + | Aortic valve stenosis, etiology of cardiac valve disease unspecified | + +"
--- OUTSIDE RECORDS SUMMARY | ~2018-11-08 | XMS | Encounter Summary ---
Demographics + + + | Address | [address] | | | [place] [address] | + + + | Home Phone | | + + + | Preferred Language | Unknown | + + + | Marital Status | | + + + | Denominational Affiliation | 1077 | + + + | Race | Unknown | + + + | Ethnic Group | Unknown | + + + Author + + + | Author | [facility] [employer] | + + + | Organization | [facility] [employer] | + + + | Address [...] Team Providers + +------+ + | Care Staging Technician Name | Role | Phone | + +------+ + | John Barbosa MD | PCP | | + +------+ + Reason for Visit +--------+ + | Reason | Comments | +--------+ + | Other | [facility] records/ labs | +--------+ + Encounter Details +--------+ + + + + | Date | Type | Department | Care Team | Description | +--------+ + + + + | 08/17/ | Documentati | [facility] | [facility] | Other ([facility] | | 2019 | on Only | Cardiology Anastasiya Viramontes CMA | records/ labs) | | | | [address] | | | | | | [place] | | | | | | [address] | | | | | | [phone] | | | +--------+ + + + [...] | | | | | | [place] [id number] | | | | | | [phone] | | | | | | | | +--------+---------+ + + + as of this encounter Visit Diagnoses Not on filein this encounter"
--- OUTSIDE RECORDS SUMMARY | ~2018-11-08 | XMS | Encounter Summary ---
Demographics + + + | Address | [address] | | | [place] [address] | + + + | Home Phone | | + + + | Preferred Language | Unknown | + + + | Marital Status | | + + + | Protestant Affiliation | 1077 | + + + | Race | Unknown | + + + | Ethnic Group | Unknown | + + + Author + + + | Author | [facility] | | | and [place] | + + + | Organization | [facility] | | [...] Team Providers + +------+ + | Care Podiatric Assistant Name | Role | Phone | + +------+ + | John Barbosa MD | PCP | | + +------+ + Reason for Visit +--------+ + | Reason | Comments | +--------+ + | Asthma | 8 mo follow up | +--------+ + Encounter Details +--------+---------+ + + + | Date | Type | Department | Care Team | Description | +--------+---------+ + + + | 10/13/ | Office | [facility] [place] | Vikram Patel, | Uncomplicated severe | | 2019 | Visit | PULMONARY [address] | MD [address] | persistent asthma | | | | [place], | [place], [place] | (Primary Dx); | | | | [place] [address] | [address] | Bronchiectasis | | | | [phone] | | without complication | | | | | | ([facility]); Dyspnea on | | | | | | exertion | +--------+---------+ + + + Social History [...] on file | | + + + + + + + | Job Start Date | Occupation | Industry | + + + + | Not on file | Not on file | Not on file | + + + + + + + + | Travel History | Travel Start | Travel End | + + + + + + | No recent travel history available. | + + documented as of this encounter Last Filed Vital Signs + + + + | Vital Sign | Reading | Time Taken | + + + + | Blood Pressure | - | - | + + + + | Pulse | 73 | 10/13/20181423 PDT | + + + + | Temperature | - | - | + + + + | Respiratory Rate | - | - | + + + + | Oxygen Saturation | 94% | 10/13/20181423 PDT | + + + + | Inhaled Oxygen | - | - | | Concentration | | | + + + + | Weight | 34.9 kg (77 lb) | 10/13/20181423 PDT | + + + + | Height | 149.9 cm (4' 11") | 10/13/2018 1424 PDT | + + + + | Body Mass Index | 15.55 | 10/13/2018 1424 PDT | + + + + documented in this encounter Patient Instructions Patient Instructions Vikram Patel MD - 10/13/2018 14:30 PDT Asthma (Adult) Asthma is a disease where the medium and small air passages within the lung go into spasm and restrict the flow of air. Inflammation and swelling of the airways cause further blocka ge. During an acute asthma attack, these factors cause trouble breathing, wheezing, cough an d chest tightness. An asthma attack can be triggered by many things. Common triggers include infections such a s the common cold, bronchitis, and pneumonia. Irritants such as smoke or pollutants in the a ir, very cold air, emotional upset, and exercise can also trigger an attack. Inmany adults with asthma, allergies todust, mold, pollen and animal dander can cause an asthma attack. Skipping doses of daily asthma medicine can also bring on an asthma attack. Asthma can be controlled using theproper medicines prescribed by your healthcare provider and avoiding exposure to known triggers including allergens and irritants. Home care Take prescribed medicine exactly at the times advised. If you need medicine such as from a hand held inhaler or aerosol breathing machine more than every 4 hours, contact your [facility] provider or seek immediate medical attention. If prescribed an antibiotic or predniso ne, take all of the medicine as prescribed, even if you are feeling better after a few days. Don't smoke. Avoid being exposed to the smoke of others. Some people with asthma have worsening of their symptoms when they take aspirin and non- steroidal or fever-reducing medicines like ibuprofen and naproxen. Talk to your healthcare p maurice if you think this may apply to you. Follow-up care Follow up with your healthcare provider, or as advised. Always bring all of your current me dicines to any appointments with your healthcare provider. Also bring a complete list of med icines eventhose not taken for asthma. If you don't already have one, talk to your health are provider about developing your own "Asthma Action Plan." A pneumococcal (pneumonia)vaccine and yearly flu shot (every fall) are recommended. Ask y our doctor about this. When to seek medical advice Call your healthcare provider right away if any of these occur: Increased wheezing or shortness of breath Need to use your inhalers more often than usual without relief Fever of 100.4F (38C) or higher, or as directed by your healthcare provider Coughing up lots of dark-colored or bloody sputum (mucus) Chest pain with each breath If you use a peak flow meter as part of an Asthma Action Plan, and you are still in the yellow zone (50% to 80%) 15 minutes after using inhaler medicine. Call 911 Call 911 if any of the following occur Trouble walking or talking because of shortness of breath If you use a peak flow meter as part of an Asthma Action Plan andyou are still in the red zone (less than 50%) 15 minutes after using inhaler medicine Lips or fingernails turning bustillos or blue Date Last Reviewed: 10/25/201619998508-2577 [employer]. [address] [place] [address]. All righ ts reserved. This information is not intended as a substitute for professional medical care. Always follow your healthcare professional's instructions. documented in this encounter Progress Notes Vikram Patel MD - 10/13/2018 1430 PDT Pulmonary Follow Up 10/13/2018 HPI Isabel Vera is a 88 y.o. female patient of John Barbosa MD here today for follo w up of asthma, multifactorial dyspnea on exertion including A. fib and valvular heart disea se and following a recent hospitalization. The patient also has nocturnal hypoxemia. The patient's last visit was on 02/03/18. Since the last visit she feels like their asthma has been stable. They have no had any acute illnesses resulting in worsening asthma symptom s. They have not required a burst of prednisone since our last appointment. Specifically 0 t apers of prednisone have occurred over the interval. Lastly Isabel notes 0 ED visits and 0 hospitalizations for asthma have occurred since the last appointment. Their controller medication regimen currently consists of Performist and budesonide H twice daily. They do feel like this medication regimen is effective at controlling their symptom s. Currently Isabel is using their rescue albuterol, Ventolin, 0-2 times a day. They hav e Duoneb for use in a nebulizer and use it 2-3 times a day. Triggers of their asthma include upper respiratory tract infections. Currently Isabel reports being able to walk 30 50 feet at their own pace on level groun d before becoming symptomatic. They are not exercising regularly. Current exercise consist s of minimal walking with cane or walker. She does not cough chronically, and does not produce mucous. Isabel does not report symptoms of heartburn or acid reflux. They have not had recent sym ptoms of nasal congestion, runny nose or post nasal drip. New triggers since the last appointment include -none. Isabel Vera is not smoking cigarettes. The patient have received this year's influenza vaccination. They are up to date with thei r Pneumovax and Prevnar 13. It appears that Isabel was hospitalized in late June 2018 with a right lower lobe pneu monia and sepsis. She grew both staph aureus and Serratia from her blood. The patient was treated with doxycycline/Levaquin. In August Ms. Vera was again hospitalized for approximately 7 days with fluid ov erload. It sounds as if she was diuresed several liters of fluid and discharge with a plan of Lasix 40 mg a day and metolazone twice a week. Isabel sees Dr. Barbosa every 3-6 weeks. 3 pillow orthopnea is reported. Past Medical History Past Medical History: Diagnosis Date Acid reflux disease Arthritis Bronchiectasis (HCC) Cardiac abnormality Congestive heart failure (HCC) mild Deep vein thrombosis (HCC) Diabetes mellitus (HCC) GERD (gastroesophageal reflux disease) Hypertension Lung disease suspected interstitial Obstructive lung disease (HCC) Paroxysmal atrial fibrillation (HCC) Pneumonia Rheumatoid arthritis(714.0) Shortness of breath Allergies: Allergies Allergen Reactions Diphenhydramine Other (See Comments) Hallucinations Oxybutynin Other (See Comments) Hallucinations Sulfa Antibiotics Nausea Only and Other (See Comments) Headache Medications: Current Outpatient Medications: acetaminophen (TYLENOL) 500 mg tablet, Take 500 mg by mouth Daily as needed for Pain., Disp: , Rfl: albuterol-ipratropium (DUONEB) 2.5-0.5 mg/3 mL SOLN, Take 3 ml in nebulizer every 4 ho urs as needed for shortness of breath. Lifetime. Dx: J44.9, Disp: 540 mL, Rfl: 11 alendronate (FOSAMAX) 70 mg tablet, Take 70 mg by mouth every 7 days., Disp: , Rfl: budesonide (PULMICORT) 0.5 mg/2 mL nebulizer solution, USE 1 VIAL IN NEBULIZER EVERY 1 2 HOURS, Disp: 120 vial, Rfl: 3 calcium carbonate (TUMS) 500 mg chewable tablet, Take 1 tablet by mouth Daily as neede d for Heartburn., Disp: , Rfl: CARTIA XT 240 MG 24 hr capsule, Take 240 mg by mouth Daily., Disp: , Rfl: Cholecalciferol (VITAMIN D-3) 2000 units CAPS, Take 2,000 Units by mouth Daily., Disp: , Rfl: dextromethorphan-guaifenesin (MUCINEX DM) 30-600 mg per ER tablet, Take [address] [facility] Twice daily as needed., Disp: , Rfl: furosemide (LASIX) 40 mg tablet, Take 40 mg by mouth Daily., Disp: , Rfl: hydrocortisone 1% ointment, Apply 1 Application topically Daily as needed., Disp: , Rf l: melatonin 1 mg TABS, Take 1 mg by mouth nightly., Disp: , Rfl: metOLazone (ZAROXOLYN) 5 MG tablet, Take 1 tablet by mouth nightly. 1-2 tablets, Disp: , Rfl: metoprolol succinate (TOPROL-XL) 200 mg ER tablet, Take 200 mg by mouth Daily., Disp: , Rfl: Multiple Vitamins-Minerals (ICAPS AREDS 2) CAPS, Take 1 capsule by mouth 2 times daily ., Disp: , Rfl: PERFOROMIST 20 MCG/2ML nebulizer solution, USE 1 VIAL IN NEBULIZER EVERY 12 HOURS, Dis p: 120 vial, Rfl: 3 predniSONE (DELTASONE) 5 mg tablet, Take 5 mg by mouth Daily., Disp: , Rfl: VENTOLIN HFA 108 (90 Base) MCG/ACT inhaler, Inhale 2 puffs into the lungs every 4 hour s as needed for Wheezing or Shortness of Breath., Disp: 1 Inhaler, Rfl: 3 warfarin (COUMADIN) 2.5 mg tablet, Take 2.5 mg by mouth Daily., Disp: , Rfl: Immunizations: Immunization History Administered Date(s) Administered INFLUENZA 65 Y OR >, TRIVALENT HIGH-DOSE 07/06/2012, 04/13/2015, 04/05/2016, 04/11/2017 INFLUENZA PF 18 Y OR >,QUADRIVALENT RECOMBINANT 02/06/2012, 04/07/2012, 03/27/2013, 01/2014 INFLUENZA PF 18 Y OR >,TRIVALENT RECOMBINANT 02/06/2012, 04/07/2012, 03/27/2013, 2013 INFLUENZA PF 65 Y OR >,TRIVALENT (FLUAD) 03/30/2017 INFLUENZA PF TRIVALENT(PED/ADOL/ADULT), PSKT 04/03/2014, 03/07/2018 PNEUMOCOCCAL CONJUGATE 13-VALENT (PCV13) 04/25/2014 PNEUMOCOCCAL POLYSACCHARIDE 23-VALENT (PPSV23) 10/06/2010 TDAP, (ADOL/ADULT) 03/09/2012 ZOSTER, 1 DOSE (ZOSTAVAX) 09/13/2011, 05/27/2012 Objective Pulse 73 | Ht 1.499 m (4' 11") | Wt 34.9 kg (77 lb) Comment: STATED THIS WAS HER WEIGHT T HIS AM. TOO HARD TO STAND. | SpO2 94% Comment: RA | BMI 15.55 kg/m Appearance: Alert, cooperative, no distress, appears stated age. Head: Normocephalic, without obvious abnormality, atraumatic. Eyes: PERRL, conjunctiva/corneas clear. Nose: Nares normal, septum midline, mucosa normal, no drainage or sinus tenderness. Throat: Lips, mucosa, and tongue normal. Teeth/dentures normal. No thrush. Neck: Supple, symmetrical, no JVD. Lungs: No accessory muscle use, breath sounds reveal crackles on auscultation bilaterally , no wheezes, crackles or rhonchi. No dullness to percussion. Chest Wall: No tenderness or deformity. Heart: Irregularly irregular, no murmur, rub or gallop. Extremities: Extremities normal, atraumatic, no cyanosis, clubbing. Trace edema to the midc prison on the left and 1+ pitting edema to the midcalf on the right.. Skin: Warm and dry. Lymph nodes: Cervical and supraclavicular nodes normal. Neurologic: Gait normal. Data: Records from the patient's hospitalization dated 07/21/18 were reviewed. Information regard ing the hospitalization in August was by the patient's memory without definitive records. Assessment 1. Asthma severe persistent. Symptoms currently well controlled with nebulized budesoni de, performance and as needed DuoNeb/Ventolin. No apparent significant exacerbations of the patient's asthma over the last 8 months. Today we discussed the interval in which Ms. Vera can use her as needed DuoNeb/Ventolin. 2. Bronchiectasis suspect exacerbation/right lower lobe pneumonia from late June 2018 . Patient grew staph aureus and Serratia from her blood. Records indicate that she respond ed to doxycycline/Levaquin. 3. Dyspnea on exertion multifactorial. Factors include atrial fibrillation and severe a ortic stenosis. I also suspect a component of deconditioning. From the description of the patient it appears that her overall volume status is followed c losely by Dr. Barbosa. 4. Hypoxemia patient wears supplemental oxygen at 2 L/min at night while sleeping. No s ignificant desaturation is noted at rest. Isabel has supplemental oxygen to use with exer tion but rarely does so. The patient's ability to ambulate is limited by her other medical problems including rheumatoid arthritis. Plan 1. High-dose seasonal influenza vaccination is recommended for March 2019. 2. No change in patient's asthma medication regimen. 3. Pulmonary clinic follow-up appointment in 6 months time. CC: John Barbosa MD documented in this encounter Plan of Treatment +--------+---------+ + + + | Date | Type | Specialty | Care Team | Description | +--------+---------+ + + + | 04/13/ | Office | Pulmonology | Vikram Patel, | | | 2019 | Visit | | MD [address] | | | | | | [place] | | | | | | [id number] | | | | | | | | +--------+---------+ + + + documented as of this encounter Procedures + +--------+ + + + | Procedure Name | Priori | Date/Time | Associated Diagnosis | Comments | | | ty | | | | + +--------+ + + + | IMAGING REPORT - | | 11/03/2018 | | Results for this | | EXTERNAL SCAN | | 0:00 PDT | | procedure are in the | | | | | | results section. | + +--------+ + + + | LABS - EXTERNAL SCAN | | 07/25/2018 | | Results for this | | | | 0:00 PST | | procedure are in the | | | | | | results section. | + +--------+ + + + | IMAGING REPORT - | | 07/17/2018 | | Results for this | | EXTERNAL SCAN | | 0:00 PST | | procedure are in the | | | | | | results section. | + +--------+ + + + | IMAGING REPORT - | | 07/12/2018 | | Results for this | | EXTERNAL SCAN | | 0:00 PST | | procedure are in the | | | | | | results section. | + +--------+ + + + | IMAGING REPORT - | | 05/10/2018 | | Results for this | | EXTERNAL SCAN | | 0:00 PST | | procedure are in the | | | | | | results section. | + +--------+ + + + | IMAGING REPORT - | | 04/18/2018 | | Results for this | | EXTERNAL SCAN | | 0:00 PDT | | procedure are in the | | | | | | results section. | + +--------+ + + + documented in this encounter Results IMAGING REPORT - EXTERNAL SCAN (11/03/2018 0:00 PDT) + + + | Narrative | Performed At | + + + | Ordered by an | | | unspecified provider. | | + + + LABS - EXTERNAL SCAN (07/25/2018 0:00 PST) + + + | Narrative | Performed At | + + + | Ordered by an | | | unspecified provider. | | + + + IMAGING REPORT - EXTERNAL SCAN (07/17/2018 0:00 PST) + + + | Narrative | Performed At | + + + | Ordered by an | | | unspecified provider. | | + + + IMAGING REPORT - EXTERNAL SCAN (07/12/2018 0:00 PST) + + + | Narrative | Performed At | + + + | Ordered by an | | | unspecified provider. | | + + + IMAGING REPORT - EXTERNAL SCAN (05/10/2018 0:00 PST) + + + | Narrative | Performed At | + + + | Ordered by an | | | unspecified provider. | | + + + IMAGING REPORT - EXTERNAL SCAN (04/18/2018 0:00 PDT) + + + | Narrative | Performed At | + + + | Ordered by an | | | unspecified provider. | | + + + documented in this encounter Visit Diagnoses + + | Diagnosis | + + | Uncomplicated severe persistent asthma - Primary | + + | Bronchiectasis without complication (HCC) Bronchiectasis without acute exacerbation | + + | Dyspnea on exertion Other dyspnea and respiratory abnormality | + + documented in this encounter
--- OUTSIDE RECORDS SUMMARY | ~2018-11-08 | XMS | Encounter Summary ---
Demographics + + + | Address | [address] | | | [place] [address] | + + + | Home Phone | | + + + | Preferred Language | Unknown | + + + | Marital Status | | + + + | Yazidism Affiliation | 1077 | + + + | Race | Unknown | + + + | Ethnic Group | Unknown | + + + Author + + + | Author | [facility] | | | and [place] | + + + | Organization | [facility] | [...] Team Providers + +------+ + | Care Aircraft Systems Repairer Name | Role | Phone | + +------+ + | John Barbosa MD | PCP | | + +------+ + Reason for Visit +--------+ + | Reason | Comments | +--------+ + | Other | O2 | +--------+ + Encounter Details +--------+ + + + + | Date | Type | Department | Care Team | Description | +--------+ + + + + | 10/04/ | Telephone | [facility] [place] | Patel Vikram, | Other (O2) | | 2019 | | PULMONARY [address] | MD [address] | | | | | [place], | [place] | | | | | [place] [address] | [address] | | | | | [phone] | | | +--------+ + + + [...] + + documented as of this encounter Plan of Treatment +--------+---------+ + + + | Date | Type | Specialty | Care Team | Description | +--------+---------+ + + + | 04/13/ | Office | Pulmonology | Vikram Patel, | | | 2019 | Visit | | MD [address] | | | | | | [place] | | | | | | [address] | | | | | | | | +--------+---------+ + + + documented as of this encounter Visit Diagnoses Not on filedocumented in this encounter"
--- OUTSIDE RECORDS SUMMARY | ~2018-11-08 | XMS | Encounter Summary ---
Demographics + + + | Address | [address] | | | [place] [address] | + + + | Home Phone | | + + + | Preferred Language | Unknown | + + + | Marital Status | | + + + | Sabianist Affiliation | 1077 | + + + | Race | Unknown | + + + | Ethnic Group | Unknown | + + + Author + + + | Author | [facility] | + + + | Organization | [facility] | + + + | Address [...] Team Providers + +------+ + | Care Dental Floss Packer Name | Role | Phone | + [...] [place] | | | | | | [address] | | | | | | [phone] | | | +--------+ + + + [...] | | | | | | [place] [address] | | | | | | [phone] | | | | | | | | +--------+---------+ + + + as of this encounter Visit Diagnoses Not on filein this encounter"
--- OUTSIDE RECORDS SUMMARY | ~2018-11-08 | XMS | Encounter Summary ---
Demographics + + + | Address | [address] | | | [place] [address] | + + + | Home Phone | | + + + | Preferred Language | Unknown | + + + | Marital Status | | + + + | Congregation Affiliation | 1077 | + + + | Race | Unknown | + + + | Ethnic Group | Unknown | + + + Author + + + | Author | [facility] | + + + | Organization | [facility] [facility] | + + + | Address [...] Team Providers + +------+ + | Care Production Assistant Name | Role | Phone | [...] cardiac valve | | | | | [address] | disease unspecified | | | | [...] | | | | | | [place] [address] | | | | | | [phone] | | | | | | | [...] Isabel Vera Date of : 1930 | [facility] | | Performing Physician: Minerva Hernandez [...] MV A Thomas: 0.33 m/s MV Dec Pocahontas: 5.25 m/s2 | | | MV DecT: [...] | 18.53 mmHg TR Vmax: 2.15 m/s Lumber Sales Supervisor: Authenticated | | | by: Minerva Nguyễnlinden Report Date/Time: 09-14-2018 20:3:30 | | + + + + + | Procedure Note | + + | Isaiah Sanford Results In - 09/14/2018 8:10 PM PDT Patient Name: Haile Vera of | | : 1930Accession: [id number] Physician: Minerva | | [place] INDICATIONS------ | [...] | | cmLVPWd: 1.19 cmLVOT Area: 2.42 ml6QZMD Diam: 1.75 cm%FS: 25.63 %EF(Teich): | | 51.74 %ESV(Teich): 20.77 mlLVIDs: 2.42 cmSV(Teich): 22.28 mlRV Minor: 4.84 | | cmLVEF MOD A4C: 61.74 %SV MOD A4C: 27.87 mlLVEDV MOD A4C: 45.14 mlLVLd A4C: 5.68 | | cmLVESV MOD A4C: 17.26 mlLVLs A4C: 4.53 cmLAESV(A-L): 94.00 mlLAESV Index (A-L): | | 66.66 ml/m2LAAs A2C: 20.68 [id number] A-L A2C: 65.68 mlLALs A2C: 5.53 cmLAAs A4C: | | 29.60 [id number] A-L A4C: 106.20 mlLALs A4C: 7.00 cmRAAs: 39.48 [id number] A-L: | | 177.47 mlRAESV MOD: 169.93 mlRALs: 7.45 cmTAPSE: 1.51 cmAV maxP.03 mmHgAV | | meanP.30 mmHgAV Vmax: 2.45 m/Jonathan Vmean: 1.89 m/Jonathan VTI: 48.10 cmAVA Vmax: | | 0.85 cm2AVA (VTI): 0.89 [id number] (Vmax): 0.00 cm2/m2AVAI (VTI): 0.00 cm2/m2LVOT | | maxP.98 mmHgLVOT meanP.70 mmHgLVSI Dopp: 30.68 ml/m2LVSV Dopp: 43.25 | | mlLVOT Vmax: 0.86 m/sLVOT Vmean: 0.61 m/sLVOT VTI: 17.86 cmMV A Thomas: 0.33 m/sMV | | Dec Pocahontas: 5.25 m/s2MV DecT: 150.95 msMV E Thomas: 0.79 m/sMV E/A Ratio: 2.35 MV | | PHT: 43.77 msMVA By PHT: 5.02 [id number] e': 0.05 m/sSeptal E/e': 15.70 Lateral | [...] A Thomas: 0.33 m/s | |MV Dec Pocahontas: 5.25 m/s2 | |MV DecT: 150.95 ms [...] |TR Vmax: 2.15 m/s | | | |Lumber Sales Supervisor: | |Authenticated by: Minerva Hernandez | [...] [place] | [address] | [facility] [address] | | + + + + + in this encounter Visit Diagnoses + + | Diagnosis | + + | Aortic valve stenosis, etiology of cardiac valve disease unspecified | + +"
--- OUTSIDE RECORDS SUMMARY | ~2018-11-08 | XMS | Encounter Summary ---
Demographics + + + | Address | [address] | | | [place] [address] | + + + | Home Phone | | + + + | Preferred Language | Unknown | + + + | Marital Status | | + + + | Methodist Affiliation | 1077 | + + + | Race | Unknown | + + + | Ethnic Group | Unknown | + + + Author + + + | Author | [facility] | + + + | Organization | [facility] | + + + | Address [...] Team Providers + +------+ + | Care Information Systems Audit Manager Name | Role | Phone | [...] cardiac valve | | | | | [address] | disease unspecified | | | | [...] | | | | | | [place] [address] | | | | | | [phone] | | | | | | | [...] Isabel Vera Date of : 1930 | [facility] | | Performing Physician: Minerva Hernandez [...] MV A Thomas: 0.33 m/s MV Dec Tippah: 5.25 m/s2 | | | MV DecT: [...] | 18.53 mmHg TR Vmax: 2.15 m/s Cosmetology Instructor: Authenticated | | | by: Minerva Hernandez Report Date/Time: 09-14-2018 20:3:30 | | + + + + + | Procedure Note | + + | Juvenal, Rad Results In - 09/14/2018 8:10 PM PDT Patient Name: Haile Vera of | | : 1930Accession: [id number] Physician: Minerva | | Alsamara INDICATIONS------ | [...] | | cmLVPWd: 1.19 cmLVOT Area: 2.42 ug1PGGD Diam: 1.75 cm%FS: 25.63 %EF(Teich): | | 51.74 %ESV(Teich): 20.77 mlLVIDs: 2.42 cmSV(Teich): 22.28 mlRV Minor: 4.84 | | cmLVEF MOD A4C: 61.74 %SV MOD A4C: 27.87 mlLVEDV MOD A4C: 45.14 mlLVLd A4C: 5.68 | | cmLVESV MOD A4C: 17.26 mlLVLs A4C: 4.53 cmLAESV(A-L): 94.00 mlLAESV Index (A-L): | | 66.66 ml/m2LAAs A2C: 20.68 ab6USFVU A-L A2C: 65.68 mlLALs A2C: 5.53 cmLAAs A4C: | | 29.60 td6OYERV A-L A4C: 106.20 mlLALs A4C: 7.00 cmRAAs: 39.48 [id number] A-L: | | 177.47 mlRAESV MOD: 169.93 mlRALs: 7.45 cmTAPSE: 1.51 cmAV maxP.03 mmHgAV | | meanP.30 mmHgAV Vmax: 2.45 m/Jonathan Vmean: 1.89 m/Jonathan VTI: 48.10 cmAVA Vmax: | | 0.85 cm2AVA (VTI): 0.89 fy4FMSL (Vmax): 0.00 cm2/m2AVAI (VTI): 0.00 cm2/m2LVOT | | maxP.98 mmHgLVOT meanP.70 mmHgLVSI Dopp: 30.68 ml/m2LVSV Dopp: 43.25 | | mlLVOT Vmax: 0.86 m/sLVOT Vmean: 0.61 m/sLVOT VTI: 17.86 cmMV A Thomas: 0.33 m/sMV | | Dec Tippah: 5.25 m/s2MV DecT: 150.95 msMV E Thomas: 0.79 m/sMV E/A Ratio: 2.35 MV | | PHT: 43.77 msMVA By PHT: 5.02 kw1Rtukab e': 0.05 m/sSeptal E/e': 15.70 Lateral | [...] A Thomas: 0.33 m/s | |MV Dec Tippah: 5.25 m/s2 | |MV DecT: 150.95 ms [...] |TR Vmax: 2.15 m/s | | | |Cosmetology Instructor: | |Authenticated by: Minerva Hernandez | |Report [...] | + + + + + | [facility] | [address] | [place] [address] | | + + + + + in this encounter Visit Diagnoses + + | Diagnosis | + + | Aortic valve stenosis, etiology of cardiac valve disease unspecified | + +"
--- OUTSIDE RECORDS SUMMARY | ~2018-11-08 | XMS | Clinical Summary ---
Demographics + + + | Address | [address] | | | [place] [address] | + + + | Home Phone | | + + + | Preferred Language | Unknown | + + + | Marital Status | Single | + + + | Orthodoxy Affiliation | Unknown | + + + | Race | Unknown | + + + | Ethnic Group | Other Race | + + + Author + + + | Author | [facility] | + + + | Organization | [facility] | + + + | Address | Unknown | + + + | Phone | Unavailable | + + + Care Team Providers + +------+ + | Care Undercover Agent Name | Role | Phone | + +------+ + PP | Unavailable | + +------+ + Source Comments TYLER is fully live on both [facility] and [facility] InPatient.[facility] Allergies Not on File Medications Not on file Active Problems Not [...] recent travel history available. | + + Plan of Treatment Not on file Results Not on filefrom Last 3 Months Insurance + +--------+ +--------+ + +--------+ | Payer | Benefi | Subscriber | Effect | Phone | Address | Type | | | t Plan | ID | rosalba | | | | | | / | | Dates | | | | | | Group | | | | | | + +--------+ +--------+ + +--------+ | MEDICARE | MEDICA | xxxxxxxxxx | Effect | [phone] | [address] | Medica | | | RE A & | | rosalba | [address] | [address] | | | [address] | | for | | [place] | | | | | | all | | [phone] | | | | | | dates | | | | + +--------+ +--------+ + +--------+ | CIGNA | CIGNA | xxxxxxxxxx | Effect | | | PPO | | | | | rosalba | | | | | | | | for | | | | | | | | all | | | | | | | | dates | | | | + +--------+ +--------+ + +--------+ + +--------+ +--------+ + + | Guarantor Name | Accoun | Relation to | Date | Phone | Billing Address | | | t Type | Patient | of | | | | | | | | | | + +--------+ +--------+ + + | Isabel Vera | Person | Self | [birth year] | [address] | | | al/Fam | | 1930 | [phone] | [place] [address] | | | [place] | | | 1 (Home) | | + +--------+ +--------+ + +"
--- OUTSIDE RECORDS SUMMARY | ~2018-11-08 | XMS | Encounter Summary ---
Demographics + + + | Address | [address] | | | [place] [address] | + + + | Home Phone | | + + + | Preferred Language | Unknown | + + + | Marital Status | Single | + + + | Mandaen Affiliation | Unknown | + + + | Race | Unknown | + + + | Ethnic Group | Other Race | + + + Author + + + | Author | [facility] | + + + | Organization | [facility] | + + + | Address | Unknown | + + + | Phone | Unavailable | + + + Care Team Providers + +------+ + | Care Denture Laboratory Technician Name | Role | Phone | + +------+ + PCP | Unavailable | + +------+ + Encounter Details +--------+ + + + + | Date | Type | Department | Care Team | Description | +--------+ + + + + | 01/13/ | Documentati | UNKNOWN DEPARTMENT | Unknown . | | | 2018 | on | [address] | | | | | | [facility] | | | | | | [place], [place] | | | | | | [address] | | | +--------+ + + + + Social History + +-------+ +--------+------+ | Tobacco [...] as of this encounter Plan of Treatment Not on filedocumented as of this encounter Visit Diagnoses Not on filedocumented in this encounter"
--- OUTSIDE RECORDS SUMMARY | ~2018-11-08 | XMS | Encounter Summary ---
Demographics + + + | Address | [address] | | | [place] [address] | + + + | Home Phone | | + + + | Preferred Language | Unknown | + + + | Marital Status | Single | + + + | Jain Affiliation | Unknown | + + + | Race | Unknown | + + + | Ethnic Group | Other Race | + + + Author + + + | Author | [facility] | + + + | Organization | [facility] | + + + | Address | Unknown | + + + | Phone | Unavailable | + + + Care Team Providers + +------+ + | Care Surgical Nurse Practitioner Name | Role | Phone | + +------+ + PCP | Unavailable | + +------+ + Encounter Details +--------+ + + + + | Date | Type | Department | Care Team | Description | +--------+ + + + + | 02/02/ | Hospital | Dermatopathology | | | | 2017 | Encounter | [address] | | | | | | Mail Code: CH16D | | | | | | [facility] | | | | | | and Healing, [address] | | | | | | [place], [place] | | | | | | [address] | | | | | | [phone] | | | +--------+ + + + [...] Not on filedocumented as of this encounter Procedures + +--------+ + + + | Procedure Name | Priori | Date/Time | Associated Diagnosis | Comments | | | ty | | | | + +--------+ + + + | DERM PATHOLOGY | Routin | 02/02/2017 | Other melanin | Results for this | | | e | | hyperpigmentation | procedure are in the | | | | | Other benign | results section. | | | | | neoplasm of skin of | | | | | | right lower limb, | | | | | | including hip | | + +--------+ + + + documented in this encounter Results DERM PATHOLOGY (02/02/2017) + + + + + + | Component | Value | Ref Range | Performed | Pathologist | | | | | At | Signature | + + + + + + | DERMATOPATH | SOURCE OF SPECIMEN:A Lt. | | [facility] | | | OLOGY(WET | medial cheek, shave | | DERMATOPATH | | | MNT) | biopsySOURCE OF | | OLOGY | | | | SPECIMEN:B Rt. thigh, | | | | | | shave biopsy | | | | | | CLINICAL DESCRIPTION:A: | | | | | | 3x4 hyperpigmented | | | | | | macule; r/o lentigo vs. | | | | | | other. B: 4x6 | | | | | | firmhyperpigmented | | | | | | papule w/ + retraction | | | | | | sign + irregular | | | | | | telangiectasia; r/oDF | | | | | | vs. other. GROSS | | | | | | DESCRIPTION:Received in | | | | | | formalin are two | | | | | | specimens labeled with | | | | | | the patient's name:A: | | | | | | Specimen is labeled "L | | | | | | medial cheek" and | | | | | | consists of an irregular | | | | | | shaveof white skin, | | | | | | [id number]. The surgical | | | | | | margin is inked blue and | | | | | | entirelysubmitted in | | | | | | cassette A1.B: Specimen | | | | | | is labeled "R thigh" and | | | | | | consists of an | | | | | | irregular shave ofwhite | | | | | | skin, [id number]. The | | | | | | surgical margin is inked | | | | | | blue; the tissue | | | | | | isbisected, and entirely | | | | | | submitted in cassette | | | | | | B1. MICROSCOPIC | | | | | | DESCRIPTION:A: There is | | | | | | slight hyperplasia of | | | | | | the rete ridges with | | | | | | hyperpigmentationalong | | | | | | the basal layer, focal | | | | | | vacuolar change and | | | | | | dyskeratosis, and | | | | | | solarelastosis with | | | | | | melanophages in the | | | | | | upper dermis. Melan-A | | | | | | immunostainhighlights | | | | | | scattered single | | | | | | junctional melanocytes | | | | | | which are | | | | | | withoutconfluence or | | | | | | nest formation.B: There | | | | | | is a dermal | | | | | | proliferation of | | | | | | spindled fibrocytes | | | | | | associated withcollagen | | | | | | bundles arranged in | | | | | | haphazard as well as | | | | | | storiform | | | | | | configurationwith | | | | | | peripheral keloidal | | | | | | collagen. There is | | | | | | overlying epidermal | | | | | | hyperplasiawith | | | | | | interweaving of the rete | | | | | | and | | | | | | parakeratosis. | | | | | | DIAGNOSIS:A: SOLAR | | | | | | LENTIGO, WITH | | | | | | INFLAMMATION. B: | | | | | | DERMATOFIBROMA.NOTE: | | | | | | The lesion is present at | | | | | | the deep biopsy | | | | | | margin. My | | | | | | electronic signature | | | | | | indicates that I have | | | | | | personally reviewed | | | | | | alldiagnostic slides, | | | | | | the gross and/or | | | | | | microscopic portion of | | | | | | thisreport and | | | | | | formulated the final | | | | | | diagnosis. | | | | | | Rendering | | | | | | Diagnostician: Sania | | | | | | julio Rubi | | | | | | MDPathologistElectronica | | | | | | lly Signed | | | | | | 02/08/2017 6:32PM | | | | + + + + + + + + | Specimen | + + | | + + + + + | Narrative | Performed At | + + + | | | + + + + + + + + | Performing | Address | City/State/Zipcode | Phone Number | | Organization | | | | + + + + + | [facility] | Mail[address], [address] | [place] [address] | | | DERMATOPATHOLOGY | [address] | | | + + + + + documented in this encounter Visit Diagnoses + + | Diagnosis | + + | Other melanin hyperpigmentation | + + | Other benign neoplasm of skin of right lower limb, including hip | + + documented in this encounter
--- OUTSIDE RECORDS SUMMARY | ~2018-11-08 | XMS | Clinical Summary ---
Demographics + + + | Address | [address] | | | [place] [address] | + + + | Home Phone | | + + + | Preferred Language | Unknown | + + + | Marital Status | | + + + | Yazidism Affiliation | 1077 | + + + | Race | Unknown | + + + | Ethnic Group | Unknown | + + + Author + + + | Author | [facility] | | | and [place] | + + + | Organization | [facility] | | | [...] Team Providers + +------+ + | Care Legal Executive Name | Role | Phone | + [...] | + + + + + + Medications + + + +---------+------+------+-------+ | Medication | Sig | Dispensed | Refills | Star | End | Statu | | | | | | t | Date | s | | | | | | Date | | | + + + +---------+------+------+-------+ | predniSONE | Take 5 mg by mouth | | 0 | 02/25 | | Activ | | (DELTASONE) 5 mg | Daily. | | | 08/16 | | e | | tablet | | | | 12 | | | + + + +---------+------+------+-------+ | CARTIA XT 240 MG | Take 240 mg by mouth | | 0 | 01/0 | | Activ | | 24 hr capsule | Daily. | | | 03/16 | | e | | | | | | 17 | | | + + + +---------+------+------+-------+ | furosemide (LASIX) | Take 40 mg by mouth | | 0 | | | Activ | | 40 mg tablet | Daily. | | | | | e | + + + +---------+------+------+-------+ | Multiple | Take 1 capsule by | | 0 | | | Activ | | Vitamins-Minerals | mouth 2 times daily. | | | | | e | | (ICAPS AREDS 2) CAPS | | | | | | | + + + +---------+------+------+-------+ | metoprolol | Take 200 mg by mouth | | 0 | 06 | | Activ | | succinate | Daily. | | | 01/13 | | e | | (TOPROL-XL) 200 mg | | | | 17 | | | | ER tablet | | | | | | | + + + +---------+------+------+-------+ | warfarin | Take 2.5 mg by mouth | | 0 | | | Activ | | (COUMADIN) 2.5 mg | Daily. | | | | | e | | tablet | | | | | | | + + + +---------+------+------+-------+ | acetaminophen | Take 500 mg by mouth | | 0 | | | Activ | | (TYLENOL) 500 mg | Daily as needed for | | | | | e | | tablet | Pain. | | | | | | + + + +---------+------+------+-------+ | | Take 1 tablet by | | 0 | | | Activ | | dextromethorphan-gua [...] Take 1 mg by mouth | | 0 | | | Activ | | TABS | nightly. | | | | | e | + + + +---------+------+------+-------+ | Cholecalciferol | Take 2,000 Units by | | 0 | | | Activ | | (VITAMIN [...] | Take 1 tablet by | | 0 | 07/0 | | Activ | | (ZAROXOLYN) 5 MG | mouth nightly. 1-2 | | | 1/20 | | e [...] | | + + + +---------+------+------+-------+ | alendronate | Take 70 mg by mouth | | 0 | 03/1 | | Activ | | (FOSAMAX) 70 mg | every 7 days. | | | 9/20 | | e | | tablet | | | | 19 | | | + + + +---------+------+------+-------+ | hydrocortisone 1% | Apply 1 Application | | 0 | 03/1 | | Activ | | ointment | topically Daily as | | | 03/16 | | e | | | needed. | | | 19 | | | + + + +---------+------+------+-------+ | calcium carbonate | Take 1 tablet by | | 0 | | | Activ | | (TUMS) 500 mg | mouth Daily as | | | | | e | | chewable tablet | needed for | | | | | | | | Heartburn. | | | | | | + + + +---------+------+------+-------+ | denosumab (PROLIA) | Inject 60 mg under | | 0 | | 04/1 | Disco | | 60 mg/mL injection | the skin Every 6 | | | | 9/20 | ntinu | | | months. | | | | 19 | ed | + + + +---------+------+------+-------+ | famotidine | Take 1 tablet by | | 0 | 08/0 | 09/25 | Disco | | (PEPCID) 40 MG | mouth Daily. | | | 08/16 | 03/16 | ntinu | | tablet | | | | 18 | 19 | ed | + + + +---------+------+------+-------+ | potassium chloride | Take 1 tablet by | | 0 | 07/3 | 09/25 | Disco | | 20 mEq CR tablet | mouth 2 times daily. | | | 0/20 | 03/16 | ntinu | | | | | | 18 | 19 | ed | + + + +---------+------+------+-------+ Active Problems [...] + + | CHF (congestive heart failure) | 02/20/2016 | + + + | [...] 168 | + + + +---+ | TIREDNESS | | + +---+ | BRONCHIECTASIS | | + +---+ | WEIGHT LOSS, ABNORMAL | | + +---+ | ATRIAL FIBRILLATION | | + +---+ | Rheumatoid arthritis | | + +---+ + + | [...] 6 | + + + + | Pulmonary disease | | | | | | 9 | + + + + + + | Last Assessment & Plan: | + + + +---+ + | Bronchiectasis with acute exacerbation | | | | | | 5 | + +---+ + | Obstructive lung disease | | | | | | 7 | + +---+ + Encounters +--------+ + + + + | Date | Type | Specialty | Care Team | Description | +--------+ + + + + | 10/13/ | Office | | Vikram Patel, | Uncomplicated severe | | 2019 | Visit | | MD | persistent asthma | | | | | | (Primary Dx); | | | | | | Bronchiectasis | | | | | | without complication | | | | | | (HCC); Dyspnea on | | | | | | exertion | +--------+ + + + + | 10/04/ | Telephone | | Vikram Patel, | Other (O2) | | 2019 | | | MD | | +--------+ + + + + from Last 3 Months Immunizations + + + + | Name | Dates Previously Given | Next Due | + + + + | INFLUENZA 65 Y OR >, | 04/11/2017, 04/05/2016, 04/13/2015, | | | TRIVALENT HIGH-DOSE | 07/06/2012 | | + + + + | INFLUENZA PF 18 Y OR | 04/03/2014, 03/27/2013, 04/07/2012, | | | >,QUADRIVALENT | 02/06/2012 | | | RECOMBINANT | | | + + + + | INFLUENZA PF 18 Y OR | 04/03/2014, 03/27/2013, 04/07/2012, | | | >,TRIVALENT | 02/06/2012 | | | RECOMBINANT | | | + + + + | INFLUENZA PF 65 Y OR | 03/30/2017 | | | >,TRIVALENT (FLUAD) | | | + + + + | INFLUENZA PF | 03/07/2018, 04/03/2014 | | | TRIVALENT(PED/ADOL/A | | | | MINISTERIO SOTO | | | + + + + | PNEUMOCOCCAL | 04/25/2014 | | | CONJUGATE 13-VALENT | | | | (PCV13) | | | + + + + | PNEUMOCOCCAL | 10/06/2010 | | | POLYSACCHARIDE | | | | 23-VALENT (PPSV23) | | | + + + + | TDAP, (ADOL/ADULT) | 03/09/2012 | | + + + + | ZOSTER, 1 DOSE | 05/27/2012, 09/13/2011 | | | (ZOSTAVAX) | | | + + + + Family History + + +------+ + | Medical History | Relation | Name | Comments | + + +------+ + | Diabetes | Brother | | | + + +------+ + | Other (see comment) | Brother | | hayfever | + + +------+ + | Cancer [...] recent travel history available. | + + Last Filed Vital Signs + + + + | Vital Sign | Reading | Time Taken | + + + + | Blood Pressure | 110/78 | 02/03/2018 1544 PDT | + + + + | Pulse | 73 | 10/13/2018 1424 PDT | + + + + | Temperature | 36.7 C (98 F) | 02/20/20161052 PDT | + + + + | Respiratory Rate | 16 | 02/20/20161052 PDT | + + + + | Oxygen Saturation | 94% | 10/13/20181423 PDT | + + + + | Inhaled Oxygen | - | - | | Concentration | | | + + + + | Weight | 34.9 kg (77 lb) | 10/13/20181423 PDT | + + + + | Height | 149.9 cm (4' 11") | 10/13/20181423 PDT | + + + + | Body Mass Index | 15.55 | 10/13/20181423 PDT | + + + + Plan of Treatment +--------+---------+ + + + | Date | Type | Specialty | Care Team | Description | +--------+---------+ + + + | 04/13/ | Office | | Patel Vikram, | | | 2018 | Visit | | [address] | | | | | | [place] | | | | | | [address] | | | | | | | [...] + + from Last 3 Months Results IMAGING REPORT - EXTERNAL SCAN (11/03/2018 0:00 PDT) + + + | Narrative | Performed At | + + + | Ordered by an | | | unspecified provider. | | + + + from Last 3 Months Insurance + +--------+ +--------+ +---------+--------+ | Payer | Benefi | Subscriber | Effect | Phone | Address | Type | | | t Plan | ID | rsoalba | | | | | | / | | Dates | | | | | | Group | | | | | | + +--------+ +--------+ +---------+--------+ | MEDICARE | MEDICA | [id number] | | [phone] | | Medica | | | RE | | 995-Pr | 5 | | re | | | PART A | | esent | | | | | | AND B | | | | | | + +--------+ +--------+ +---------+--------+ | MEDICARE SUPPLEMENT | MEDICA | [id number] | 06/27/19 | [phone] | | Indemn | | OTHER | RE | | 15-Pre | 0 | | ity | | | SUPPLE | | sent | | | | | | MENT | | | | | | | | OTHER | | | | | | + +--------+ +--------+ +---------+--------+ + +--------+ +--------+ + + | Guarantor Name | Accoun | Relation to | Date | Phone | Billing Address | | | t Type | Patient | of | | | | | | | | | | + +--------+ +--------+ + + | Isabel Vera | Person | Self [birth year] | [address] | | | al/Fam | | 1930 | [phone] | [place] | | | [place] | | | [address] (Home) | [address] | + +--------+ +--------+ + + Advance Directives Patient has advance care planning documents on file. For more information, please contact:[facility] [place] [address]
--- OUTSIDE RECORDS SUMMARY | ~2018-11-08 | XMS | Encounter Summary ---
Demographics + + + | Address | [address] | | | [place] [address] | + + + | Home Phone | | + + + | Preferred Language | Unknown | + + + | Marital Status | Single | + + + | Judaism Affiliation | Unknown | + + + | Race | Unknown | + + + | Ethnic Group | Other Race | + + + Author + + + | Author | [facility] | + + + | Organization | [facility] | + + + | Address | Unknown | + + + | Phone | Unavailable | + + + Care Team Providers + +------+ + | Care Weigher And Crusher Name | Role | Phone | + [...] [address] | | | | | | [facility] | | | | | | and Healing, [address] | | | | | | [place], [place] | | | | | | [address] | | | | | | [phone] | | | +--------+ + + + [...] skin, | | | | | | [id number]. The surgical | | | | | [...] | | | | | | skin, [id number]. The | | | | | | [...] + + | [facility] | [address], [address] | [place] [address] | | | DERMATOPATHOLOGY | [address] | | | + + + + + documented in this encounter Visit Diagnoses + + | Diagnosis | + + | Other melanin hyperpigmentation | + + | Other benign neoplasm of skin of right lower limb, including hip | + + documented in this encounter
--- OUTSIDE RECORDS SUMMARY | ~2018-11-08 | XMS | Clinical Summary ---
Demographics + + + | Address | [address] | | | [place] [address] | + + + | Home Phone | | + + + | Preferred Language | Unknown | + + + | Marital Status | Single | + + + | Zoroastrian Affiliation | Unknown | + + + | Race | Unknown | + + + | Ethnic Group | Other Race | + + + Author + + + | Author | [facility] | + + + | Organization | [facility] | + + + | Address | Unknown | + + + | Phone | Unavailable | + + + Care Team Providers + +------+ + | Care Artist Agent Name | Role | Phone | + +------+ + PP | Unavailable | + +------+ + Source Comments TYLER is fully live on both [facility] Ambulatory and [facility] InPatient.[facility] Allergies Not on File Medications Not on [...] | | | | all | | [address] | | | | | | dates [...] | | al/Fam | | 1930 | [phone] | [place] [address] | | | [place] | | | 1 (Home) | | + +--------+ +--------+ + +"
--- OUTSIDE RECORDS SUMMARY | ~2018-11-08 | XMS | Encounter Summary ---
Demographics + + + | Address | [address] | | | [place] [address] | + + + | Home Phone | | + + + | Preferred Language | Unknown | + + + | Marital Status | | + + + | Church Affiliation | 1077 | + + + | Race | Unknown | + + + | Ethnic Group | Unknown | + + + Author + + + | Author | [facility] | + + + | Organization | [facility] | + + + | Address [...] Team Providers + +------+ + | Care Superintendent Mechanical Name | Role | Phone | + [...] + + | 11/01/ | Office | [facility] | Minerva Mosher, | Chronic atrial | | 2019 | Visit | Cardiology Fl[facility] | [address] | fibrillation (HCC) | | | | [address] | [address], | (Primary Dx); Severe | | | | [address] | [place] [address] | aortic stenosis; | | | | [place] [address] | [phone] | Chronic diastolic | | | | [phone] | | congestive heart | | | [...] fever or chills. Previously was admitted to [facility] on May 10-2017 secondary to volu [...] Patient was seen after being discharged from [facility] due to decompensated hermes estive heart failure. [...] mouth 2 (two) times daily. Nebulizer (medical hospital sales) 1 each by Does not apply route [...] Reactions Diphenhydramine Hallucinations Developed hallucinations when taking gekj-qde-jebjhpz sleep medications with diphenhydram ine Oxybutynin Hallucinations [...] RVSP 54 mmHg. no pericardial effusion. 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 7. Chronic atrial fibrillation [...] | | | | | | [place] [id number] | | | | | | [phone] | | | | | | | [...]
--- OUTSIDE RECORDS SUMMARY | ~2018-11-08 | XMS | Clinical Summary ---
Demographics + + + | Address | [address] | | | [place] [address] | + + + | Home Phone | | + + + | Preferred Language | Unknown | + + + | Marital Status | | + + + | Nondenominational Affiliation | 1077 | + + + | Race | Unknown | + + + | Ethnic Group | Unknown | + + + Author + + + | Author | [facility] | + + + | Organization | [facility] | + + + | Address [...] Team Providers + +------+ + | Care Freight Loader Name | Role | Phone | + [...] taking | | | | | | [id number] | | | | | | sleep [...] | | | e | | | 80 am 40 pm | | | | | | + + +---------+---------+------+------+-------+ | warfarin | [...] | | | + + +---------+---------+------+------+-------+ | Calcium | Take by mouth. | | | | | Activ | | Carb-Cholecalciferol | | | | | | e | | (CALCIUM 500+D3 PO) | | | | | | | + + +---------+---------+------+------+-------+ | gentamicin | 1 drop every 4 | | | | | Activ | | (GARAMYCIN) 0.3 % | (four) hours. | | | | | e | | ophthalmic solution | | | | | | | + + +---------+---------+------+------+-------+ | diltiazem | Take 1 capsule by | 90 | 1 | 05/0 | | Activ | | (CARDIZEM CD) 240 MG | mouth every evening. | capsule | | 8/20 | | e | | 24 hr capsule | | | | 19 | | | + + +---------+---------+------+------+-------+ | metolazone 5 MG | Take 0.5 tablets by | 60 | 1 | 05/0 | 05/0 | Activ | | tablet | mouth every third | tablet | | 8/20 | 7/20 | e | | | day. Take 5 mg as | | | 19 | 20 | | | | needed. Or may use | | | | | | | | twice a week if | | | | | | | | weight or LE edema | | | | | | | | increased. | | | | | | + + +---------+---------+------+------+-------+ | diltiazem | Take 1 capsule by | 90 | 1 | /2 | 05/0 | Disco | | (CARDIZEM CD) 240 MG | mouth every evening. | capsule | | 7/20 | 8/20 | ntinu | | 24 hr capsule | | | | 18 | 19 | ed | + + +---------+---------+------+------+-------+ | metolazone | Take 1 tablet by | 60 | 1 | 11/2 | 05/0 | Disco | | (ZAROXOLYN) 5 MG | mouth daily. Take 5 | tablet | | 1/20 | 8/20 | ntinu | | tablet | mg as needed. Or may | | | 18 | 19 | ed | | | use twice a week [...] CVR, on warfarin, | | managed by [facility]. 85yo [place], here | | [...] Assessment & Plan: Hx COPD, managed by [facility] | | Jorge. | + + Resolved [...] | +--------+ + + + + | 11/06/ | Telephone | | Suzi Card | | | 2019 | | | JAZMINE Viramontes | | +--------+ + + + + | 11/01/ | Office | | Minerva Hernandez, | Chronic atrial | | 2019 | Visit | | MD | fibrillation ([facility]) | | | | | | (Primary Dx); Severe | | | | | | aortic stenosis; | | | | | | Chronic diastolic | | | | | | congestive heart | | | | | | failure ([facility]); Mild | | | | | | pulmonic | | | | | | regurgitation and RV | | | | | | dysfunction by | | | | | | prior | | | | | | echocardiogram; | | | | | | Essential | | | | | | hypertension | +--------+ + + + + | [...] valve | | 2019 | Orders | | | stenosis, etiology | | | | | | of cardiac valve | | | | | | disease unspecified | +--------+ + + + + | 08/17/ | Documentati | | Suzi Card | Other ([facility] | | 2018 | on Only | | JAZMINE Viramontes | records/ labs) | +--------+ + + + + | 08/16/ | Office | | Minerva Hernandez, | Chronic atrial | | 2019 | Visit | | MD | fibrillation ([facility]) | | | | | | (Primary Dx); | | | | | | Rheumatoid arthritis | | | | | | involving multiple | | | | | | sites with positive | | | | | | rheumatoid factor | | | | | | ([facility]); Essential | | | | | | hypertension; | | | | | | Chronic diastolic | | | | | | congestive heart | | | | | | failure ([facility]); | | | | | | Severe [...] + + | 01/24/ | Office | | Minerva Hernandez, | | | 2019 | Visit | | MD Inga Huitron | | | | | | Dr [place], | | | | | | [place] [address] | | | | | | [phone] | | | | | | | [...] | | 04/11/2017, 04/05/2016, | | | (Season Ended) | 9 | 04/13/2015, Additional history | | | [...] Elodia Gonzalez Date of : 1930 | [facility] | | Performing Physician: [...] MV A Thomas: 0.33 m/s MV Dec [place]: 5.25 m/s2 | | | MV DecT: [...] | 18.53 mmHg TR Vmax: 2.15 m/s Header Dock: Authenticated | | | [facility] Report Date/Time: 09-14-2018 20:3:30 | | + + + + + | Procedure Note | + + | Juvenal, Rad Results In - 09/14/2018 8:10 PM PDT Patient Name: Haile Gonzalez of | | : 1930Accession: [id number] Physician: Minerva | | Alsamara INDICATIONS------ | [...] | | cmLVPWd: 1.19 cmLVOT Area: 2.42 tw8SVJT Diam: 1.75 cm%FS: 25.63 %EF(Teich): | | 51.74 %ESV(Teich): 20.77 mlLVIDs: 2.42 cmSV(Teich): 22.28 mlRV Minor: 4.84 | | cmLVEF MOD A4C: 61.74 %SV MOD A4C: 27.87 mlLVEDV MOD A4C: 45.14 mlLVLd A4C: 5.68 | | cmLVESV MOD A4C: 17.26 mlLVLs A4C: 4.53 cmLAESV(A-L): 94.00 mlLAESV Index (A-L): | | 66.66 ml/m2LAAs A2C: 20.68 di4BXWLP A-L A2C: 65.68 mlLALs A2C: 5.53 cmLAAs A4C: | | 29.60 co3NQYUS A-L A4C: 106.20 mlLALs A4C: 7.00 cmRAAs: 39.48 ii0ZRSWR A-L: | | 177.47 mlRAESV MOD: 169.93 mlRALs: 7.45 cmTAPSE: 1.51 cmAV maxP.03 mmHgAV | | meanP.30 mmHgAV Vmax: 2.45 m/Jonathan Vmean: 1.89 m/Jonathan VTI: 48.10 cmAVA Vmax: | | 0.85 cm2AVA (VTI): 0.89 qc1JLUR (Vmax): 0.00 cm2/m2AVAI (VTI): 0.00 cm2/m2LVOT | | maxP.98 mmHgLVOT meanP.70 mmHgLVSI Dopp: 30.68 ml/m2LVSV Dopp: 43.25 | | mlLVOT Vmax: 0.86 m/sLVOT Vmean: 0.61 m/sLVOT VTI: 17.86 cmMV A Thomas: 0.33 m/sMV | | Dec [place]: 5.25 m/s2MV DecT: 150.95 msMV E Thomas: 0.79 m/sMV E/A Ratio: 2.35 MV | | PHT: 43.77 msMVA By PHT: 5.02 hp3Zkgtaz e': 0.05 m/sSeptal E/e': 15.70 Lateral | [...] |LVOT VTI: 17.86 cm | |MV A Htomas: 0.33 m/s | |MV Dec [place]: 5.25 m/s2 | |MV DecT: 150.95 ms [...] |TR Vmax: 2.15 m/s | | | |Header Dock: | |Authenticated by: Minerva Hernandez | |Report [...] | + + + + + | [facility] | [address] | [place] [address] | | + + + + + [...] +------+-------+ + | MEDICARE | MEDICA | [id number] | | | [address] | | | RE | | | | [place] [address] | | | IP-OP | | | | | + +--------+ +------+-------+ + | CIGNA | CIGNA | [id number] | | | | | | - [...] | [address] | | | al/Jose | | 1930 | [phone] [place] | | | [place] | | | [phone] | [address] | + +--------+ +--------+ + +
--- OUTSIDE RECORDS SUMMARY | ~2018-11-08 | XMS | Encounter Summary ---
Demographics + + + | Address | [address] | | | [place] [address] | + + + | Home Phone | | + + + | Preferred Language | Unknown | + + + | Marital Status | | + + + | Mosque Affiliation | 1077 | + + + | Race | Unknown | + + + | Ethnic Group | Unknown | + + + Author + + + | Author | [facility] | + + + | Organization | [facility] | + + + | Address [...] Team Providers + +------+ + | Care Helminthologist Name | Role | Phone | + +------+ + | John Barbosa MD | PCP | | + +------+ + Encounter Details +--------+ + + + + | Date | Type | Department | Care Team | Description | +--------+ + + + + | 11/06/ | Telephone | [facility] | Suzi Card | | | 2019 | | Cardiology Anastasiya Viramontes CMA | | | | | [address] | | | | | | [place] | | | | | | [address] | | | | | | [phone] | | | +--------+ + + + [...] [place], | | | | | | [place] [address] | | | | | | [phone] | | | | | | | | +--------+---------+ + + + as of this encounter Visit Diagnoses Not on filein this encounter"
--- OUTSIDE RECORDS SUMMARY | ~2018-11-08 | XMS | Encounter Summary ---
Demographics + + + | Address | [address] | | | [place] [address] | + + + | Home Phone | | + + + | Preferred Language | Unknown | + + + | Marital Status | | + + + | Protestant Affiliation | 1077 | + + + | Race | Unknown | + + + | Ethnic Group | Unknown | + + + Author + + + | Author | [facility] | | | and [place] | + + + | Organization | [facility] | | [...] Team Providers + +------+ + | Care Messenger Office Name | Role | Phone | + [...] | persistent asthma | | | | [place], | [place], [place] | (Primary Dx); | | | | [place] [address] | [address] | Bronchiectasis | | | | [phone] | | without complication | | | | | | ([facility]); Dyspnea on | | | | | [...] more than every 4 hours, contact your [facility] provider or seek immediate medical attention. If [...] turning bustillos or blue Date Last Reviewed: 10/25/201619998244-0432 [employer] [place] [address]. All righ ts reserved. This information is [...] per ER tablet, Take 1 tablet by [facility] Twice daily as needed., Disp: , Rfl: [...] cyanosis, clubbing. Trace edema to the [facility] on the left and 1+ pitting edema [...] [place] | | | | | | [address] | | | | | | | [...]
--- OUTSIDE RECORDS SUMMARY | ~2018-11-08 | XMS | Clinical Summary ---
Demographics + + + | Address | [address] | | | [place] [address] | + + + | Home Phone | | + + + | Preferred Language | Unknown | + + + | Marital Status | | + + + | Spiritism Affiliation | 1077 | + + + | Race | Unknown | + + + | Ethnic Group | Unknown | + + + Author + + + | Author | [facility] | + + + | Organization | [facility] | + + + | Address [...] Team Providers + +------+ + | Care Claim Administrator Name | Role | Phone | [...] taking | | | | | | [id number] | | | | | | sleep [...] CVR, on warfarin, | | managed by [facility]. 85yo [place], here | | [...] Assessment & Plan: Hx COPD, managed by [facility] | | Jorge. | + + Resolved [...] Visit | | MD | fibrillation ([facility]) | | | | | | (Primary Dx); Severe | | | | | | aortic stenosis; | | | | | | Chronic diastolic | | | | | | congestive heart | | | | | | failure ([facility]); Mild | | | | | | [...] Visit | | MD | fibrillation ([facility]) | | | | | | (Primary Dx); | | | | | | Rheumatoid arthritis | | | | | | involving multiple | | | | | | sites with positive | | | | | | rheumatoid factor | | | | | | ([facility]); Essential | | | | | | hypertension; | | | | | | Chronic diastolic | | | | | | congestive heart | | | | | | failure ([facility]); | | | | | | Severe [...] | | | | | | [place] [address] | | | | | | [phone] | | | | | | | [...] Elodia Gonzalez Date of : 1930 | [facility] | | Performing Physician: Minerva Hernandez [...] MV A Thomas: 0.33 m/s MV Dec [place]: 5.25 m/s2 | | | MV DecT: [...] | 18.53 mmHg TR Vmax: 2.15 m/s Knife Setter Assembler: Authenticated | | | by: [facility] Report Date/Time: 09-14-2018 20:3:30 | | + + + + + | Procedure Note | + + | Juvenal, Rad Results In - 09/14/2018 8:10 PM PDT Patient Name: Haile Gonzalez of | | : 1930Accession: [id number] Physician: Minerva | | Alsamara INDICATIONS------ | [...] | | cmLVPWd: 1.19 cmLVOT Area: 2.42 xq2NRBB Diam: 1.75 cm%FS: 25.63 %EF(Teich): | | 51.74 %ESV(Teich): 20.77 mlLVIDs: 2.42 cmSV(Teich): 22.28 mlRV Minor: 4.84 | | cmLVEF MOD A4C: 61.74 %SV MOD A4C: 27.87 mlLVEDV MOD A4C: 45.14 mlLVLd A4C: 5.68 | | cmLVESV MOD A4C: 17.26 mlLVLs A4C: 4.53 cmLAESV(A-L): 94.00 mlLAESV Index (A-L): | | 66.66 ml/m2LAAs A2C: 20.68 id4VPOSI A-L A2C: 65.68 mlLALs A2C: 5.53 cmLAAs A4C: | | 29.60 cx6SQNTV A-L A4C: 106.20 mlLALs A4C: 7.00 cmRAAs: 39.48 ai2CEDFK A-L: | | 177.47 mlRAESV MOD: 169.93 mlRALs: 7.45 cmTAPSE: 1.51 cmAV maxP.03 mmHgAV | | meanP.30 mmHgAV Vmax: 2.45 m/Jonathan Vmean: 1.89 m/Jonathan VTI: 48.10 cmAVA Vmax: | | 0.85 cm2AVA (VTI): 0.89 yn4JZJV (Vmax): 0.00 cm2/m2AVAI (VTI): 0.00 cm2/m2LVOT | | maxP.98 mmHgLVOT meanP.70 mmHgLVSI Dopp: 30.68 ml/m2LVSV Dopp: 43.25 | | mlLVOT Vmax: 0.86 m/sLVOT Vmean: 0.61 m/sLVOT VTI: 17.86 cmMV A Thomas: 0.33 m/sMV | | Dec Sierra: 5.25 m/s2MV DecT: 150.95 msMV E Thomas: 0.79 m/sMV E/A Ratio: 2.35 MV | | PHT: 43.77 msMVA By PHT: 5.02 sc5Ezgdtw e': 0.05 m/sSeptal E/e': 15.70 Lateral | [...] A Thomas: 0.33 m/s | |MV Dec Sierra: 5.25 m/s2 | |MV DecT: 150.95 ms [...] |TR Vmax: 2.15 m/s | | | |Knife Setter Assembler: | |Authenticated by: Minerva Hernandez | |Report [...] [facility] | [address] | [place] [address] | | + + + + + [...] +------+-------+ + | MEDICARE | MEDICA | [id number] | | | [address] | | | RE | | | | [place] [address] | | | IP-OP | | | | | + +--------+ +------+-------+ + | CIGNA | CIGNA | [id number] | | | | | | - [...] | | | [place] | | | [address] | [address] | + +--------+ +--------+ + +
--- OUTSIDE RECORDS SUMMARY | ~2018-11-08 | XMS | Encounter Summary ---
Demographics + + + | Address | [address] | | | [place] [address] | + + + | Home Phone [...] Author + + + | Author | [facility] | + + + | Organization | [facility] | + + + | Address | Unknown | + + + | Phone | Unavailable | + + + Care Team Providers + +------+ + | Care Mapping Supervisor Name | Role | Phone | + +------+ + PCP | Unavailable | + +------+ + Encounter Details +--------+ + + + + | Date | Type | Department | Care Team | Description | +--------+ + + + + | 01/13/ | Documentati | UNKNOWN DEPARTMENT | Unknown . | | | 2018 | on | [address] | | | | | | [facility] | | | | | | [place], [place] | | | | | | [address] | | | +--------+ + + + [...]
--- OUTSIDE RECORDS SUMMARY | ~2018-11-08 | XMS | Encounter Summary ---
Demographics + + + | Address | [address] | | | [place] [address] | + + + | Home Phone | | + + + | Preferred Language | Unknown | + + + | Marital Status | | + + + | Jew Affiliation | 1077 | + + + | Race | Unknown | + + + | Ethnic Group | Unknown | + + + Author + + + | Author | [facility] | | | and [place] | + + + | Organization | [facility] | | | [...] Team Providers + +------+ + | Care Marine Equipment Engineer Name | Role | Phone | [...] [address] | | | | | [place], | [place] | | | | | [place] [address] | [address] | | | | | [phone] | | | +--------+ + + + [...] [place] | | | | | | [address] | | | | | | | | +--------+---------+ + + + documented as of this encounter Visit Diagnoses Not on filedocumented in this encounter"
--- OUTSIDE RECORDS SUMMARY | ~2018-11-08 | XMS | Clinical Summary ---
Demographics + + + | Address | [address] | | | [place] [address] | + + + | Home Phone | | + + + | Preferred Language | Unknown | + + + | Marital Status | | + + + | Catholic Affiliation | 1077 | + + + | Race | Unknown | + + + | Ethnic Group | Unknown | + + + Author + + + | Author | [facility] | | | and [place] | + + + | Organization | [facility] | | | [...] Team Providers + +------+ + | Care Advanced Developer Name | Role | Phone | [...] [place] | | | | | | [address] | | | | | | | [...] +--------+ +---------+--------+ | MEDICARE | MEDICA | [id number] | | [phone] | | Medica | | | RE | | [phone]-Pr | 5 | | re | | | PART A | | esent | | | | | | AND B | | | | | | + +--------+ +--------+ +---------+--------+ | MEDICARE SUPPLEMENT | MEDICA | [id number] | 06/27/19 | [phone] | | Indemn [...] | | al/Fam | | 1930 | [phone] | [place] | | | [place] | | | [address] (Home) | [address] | + +--------+ +--------+ + + Advance Directives Patient has advance care planning documents on file. For more information, please contact:[facility] [place] [address]
--- OUTSIDE RECORDS SUMMARY | ~2018-11-08 | XMS | Encounter Summary ---
Demographics + + + | Address | [address] | | | [place] [address] | + + + | Home Phone | | + + + | Preferred Language | Unknown | + + + | Marital Status | | + + + | Roman Catholic Affiliation | 1077 | + + + | Race | Unknown | + + + | Ethnic Group | Unknown | + + + Author + + + | Author | [facility] | + + + | Organization | [facility] | + + + | Address [...] Team Providers + +------+ + | Care District Plant Superintendent Name | Role | Phone | + +------+ + | John Barbosa MD | PCP | | + +------+ + Encounter Details +--------+ + + + + | Date | Type | Department | Care Team | Description | +--------+ + + + + | 11/06/ | Telephone | [facility] [place] | Suzi Card | | | 2019 | | Cardiology Anastasiya Viramontes CMA | | | | | [address] | | | | | | [place] | | | | | | [address] | | | | | | [phone] | | | +--------+ + + + [...] [place], | | | | | | [place] [address] | | | | | | [phone] | | | | | | | | +--------+---------+ + + + as of this encounter Visit Diagnoses Not on filein this encounter"
--- OUTSIDE RECORDS SUMMARY | ~2018-11-08 | XMS | Encounter Summary ---
Demographics + + + | Address | [address] | | | [place] [address] | + + + | Home Phone | | + + + | Preferred Language | Unknown | + + + | Marital Status | | + + + | Presybeterian Affiliation | 1077 | + + + | Race | Unknown | + + + | Ethnic Group | Unknown | + + + Author + + + | Author | [facility] | + + + | Organization | [facility] | + + + | Address [...] Team Providers + +------+ + | Care Loftsman/Woman Name | Role | Phone | + [...] + + | 08/16/ | Office | [facility] | Minerva Mosher, | Chronic atrial | | 2019 | Visit | Cardiology Florentino | [address] | fibrillation (HCC) | | | | [address] | [address] [place], | (Primary Dx); | | | | [facility] [address] | [place] [address] | Rheumatoid arthritis | | | | [place] [address] | [phone] | involving multiple | | | | [phone] | | sites with positive | | [...] Date of visit: 08/16/2018 Primary Care Physician: JVUE AGUIRRE CHIEF COMPLAINT: Chief Complaint Patient presents [...] use metolazone. Previously was admitted to [facility] on May 10-2017 secondary to [...] Patient was seen after being discharged from [facility] due to decompensated hermes estive [...] by mouth 2 (two) times daily. Nebulizer (certified medical asst) 1 each by Does not apply route [...] Reactions Diphenhydramine Hallucinations Developed hallucinations when taking hnhj-kqo-eiobtaq sleep medications with diphenhydram ine Oxybutynin Hallucinations [...] problems. 1. Chronic diastolic congestive heart failure [facility] class III, stage C. Currently euvolemic. 2. Symptomatic severe aortic stenosis. 3. Significant visual hallucination. Improved. 4. Significant pulmonary disease with significant decrease in DLCO. Patient is on home O2 a t nighttime. 5. Recent bacterial pneumonia with recurrent worsening cough. 6. 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 7. Chronic atrial fibrillation [...] | | | | | | [place] [address] | | | | | | [phone] | | | | | | | [...]
--- OUTSIDE RECORDS SUMMARY | 2018-11-08 14:34 | XMS ---
PreManage Notification: ELODIA GONZALEZ Security Light Industrial Supervisor Events No recent Security Events currently on file CRITERIA MET - [facility] CARE PROVIDERS JUVE AGUIRRE Hospitalist 05/11/2018-Current PHONE: Unknown Jose Antonio Gonzales MD Primary Care Current PHONE: Unknown orjaved Smith or Wool Hat Forming Machine Tender Current PHONE: Unknown Denise GONZALES Current PHONE: Unknown Dot has no Care Guidelines for this patient. Care History Medical/Surgical 05/11/2018 [facility] - Patient is currently established with [facility]. If patient is seen in the ED during business hours. Please contact CHWs at [facility]. Care Recommendation: This patient has had 5 [...] providing care. E.D. VISIT COUNT (12 MO.) 7 [facility]. TOTAL 7 NOTE: Visits indicate total known visits. ED/UCC VISIT TRACKING (12 MO.) 11/08/2018 14:31 [facility] [place] TYPE: Emergency COMPLAINT: - COUGH/WEAKNESS 09/27/2018 12:40 [facility] [place] TYPE: Emergency COMPLAINT: - FEELING DOOM DIAGNOSES: - Personal history of nicotine dependence - Heart failure, unspecified - Encounter for observation for other suspected diseases and conditions ruled out - vermin exterminator (current) use of anticoagulants - Chronic obstructive pulmonary disease, unspecified - Allergy status to sulfonamides status - vermin exterminator (current) use of systemic steroids - Other exterminator termite (current) drug therapy 09/13/2018 19:14 [facility] [place] TYPE: Emergency COMPLAINT: - SOB 07/17/2018 19:39 [facility] [place] TYPE: Emergency COMPLAINT: - SOB 07/12/2018 20:59 [facility] [place] TYPE: Emergency COMPLAINT: - ASTHMA DIAGNOSES: - Shortness of breath - Other long-term (current) drug therapy - Allergy status to sulfonamides status - Unspecified asthma with (acute) exacerbation - Heart failure, unspecified - Personal history of nicotine dependence 05/10/2018 21:03 [facility] [place] TYPE: Emergency COMPLAINT: - SOB 04/18/2018 14:11 [facility] [place] TYPE: Emergency COMPLAINT: - SWOLLEN EXTREMITIES,NON INJURY DIAGNOSES: - Unspecified atrial fibrillation - [facility] (current) use of anticoagulants - Allergy status to sulfonamides status - Other exterminator termite (current) drug therapy - Heart failure, unspecified [...] - Chronic respiratory failure with hypoxia - [facility] (current) use of anticoagulants - Chronic atrial fibrillation - Acute on chronic diastolic (congestive) heart failure 07/17/2018 22:26 [facility] [place] TYPE: Medical Surgical COMPLAINT: - SEPTIC SHOCK DIAGNOSES: - [facility] (current) use of anticoagulants - Chronic respiratory [...] - Chronic respiratory failure with hypoxia - vermin exterminator (current) use of systemic steroids - Dependence on supplemental oxygen - Pneumonia due to other Gram-negative bacteria - Hypotension, unspecified - Bronchiectasis, uncomplicated - Rheumatoid arthritis, unspecified - Other malaise - Adverse effect of anticoagulants, initial encounter - Sepsis, unspecified organism - vermin exterminator (current) use of systemic steroids - Chronic atrial fibrillation - Cachexia - Personal history of nicotine dependence - Sepsis due to Methicillin susceptible Staphylococcus aureus - Nonrheumatic aortic (valve) stenosis - vermin exterminator (current) use of anticoagulants - Cachexia - [...] arthritis, unspecified - Unspecified atrial fibrillation - [facility] (current) use of inhaled steroids - 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 - Unspecified atrial flutter - Allergy status to sulfonamides status - [facility] (current) use of systemic steroids - Other exterminator termite (current) drug therapy - Gastro-esophageal reflux disease without esophagitis - vermin exterminator (current) use of oral hypoglycemic drugs - Pulmonary hypertension, unspecified - Chronic obstructive pulmonary disease, unspecified - Acute on chronic diastolic (congestive) heart failure - Hypertensive heart disease with heart failure - Personal history of nicotine dependence [email or web address]
[2018-11-08] MEDS ORDERED: MUCINEX DM ER1 EAC1 PO (14:50)
[2018-11-08] MEDS ORDERED: GENTAK5 ML OPTH (14:51)
== END 2018-11-08 18:11 | disposition home or self-care (01) ==
LOC: ED 14:29
DX: I50.9 Heart failure, unspecified (principal); J44.1 Chronic obstructive pulmonary disease with (acute) exacerbation; Z88.2 Allergy status to sulfonamides; Z79.899 Other long term (current) drug therapy; Z79.01 Long term (current) use of anticoagulants
CPT/HCPCS: 71045; 80053; 83880; 84484; 85025; 85610; 99285-25; J7512

== ENCOUNTER 2019-02-25 13:21 | Emergency (ER) | payer MEDICARE, OTHER ==
[~2019-02-25] VITALS: Ht 149.9 cm; Wt 40.9 kg
[~2019-02-25 13:21] MED LIST changes: +ACETAMINOPHEN500 M1 PO; +GENTAK5 ML OPTH; +MUCINEX DM ER1 EAC1 PO; +PERFOROMIS20 MCG/2 M
--- OUTSIDE RECORDS SUMMARY | 2019-02-25 13:24 | XMS ---
PreManage Notification: ELODIA GONZALEZ Security Maintenance Manager Events No recent Security Events currently on file [place] [facility] [place] JUVE AGUIRRE Internal Medicine 05/11/2018-Current PHONE: Unknown Jose Antonio Gonzales MD Primary Care Current PHONE: Unknown orjaved Smith or Hand Rounder Current PHONE: Unknown Denise GONZALES Current PHONE: Unknown Dot has no Care Guidelines for this patient. Care History Medical/Surgical 05/11/2018 [facility] - Patient is currently established with [facility]. If patient is seen in the ED during business hours. Please contact CHWs at [facility]. Care Recommendation: This patient has had [...] providing care. E.D. VISIT COUNT (12 MO.) 9 [facility]. TOTAL 9 NOTE: Visits indicate total known visits. ED/UCC VISIT TRACKING (12 MO.) 02/25/2019 13:21 [facility] [place] TYPE: Emergency COMPLAINT: - SOB 01/02/2019 12:13 [facility] [place] TYPE: Emergency COMPLAINT: - SOB DIAGNOSES: - snf (current) use of anticoagulants - Acquired absence of other organs - Other chest pain - Unspecified atrial fibrillation - Unspecified asthma, uncomplicated - Personal history of nicotine dependence - termite treater helper (current) use of systemic steroids - Heart failure, unspecified - Acquired absence of other specified parts of digestive tract - Allergy status to sulfonamides status - Other continuous churn buttermaker (current) drug therapy 11/08/2018 14:31 [facility] [place] TYPE: Emergency COMPLAINT: - COUGH/WEAKNESS DIAGNOSES: - Other correction (current) drug therapy - Chronic obstructive pulmonary disease with (acute) exacerbation - termite treater helper (current) use of anticoagulants - Heart failure, unspecified - Cough - Allergy status to sulfonamides status 09/27/2018 12:40 [facility] [place] TYPE: Emergency COMPLAINT: - FEELING DOOM DIAGNOSES: - Personal history of nicotine dependence - Heart failure, unspecified - Encounter for observation for other suspected diseases and conditions ruled out - snf (current) use of anticoagulants - Chronic obstructive pulmonary disease, unspecified - Allergy status to sulfonamides status - snf (current) use of systemic steroids - Other continuous churn buttermaker (current) drug therapy 09/13/2018 19:14 [facility] [place] TYPE: Emergency COMPLAINT: - SOB 07/17/2018 19:39 [facility] [place] TYPE: Emergency COMPLAINT: - SOB 07/12/2018 20:59 [facility] [place] TYPE: Emergency COMPLAINT: - ASTHMA DIAGNOSES: - Shortness of breath - Other continuous churn buttermaker (current) drug therapy - Allergy status to sulfonamides status - Unspecified asthma with (acute) exacerbation - Heart failure, unspecified - Personal history of nicotine dependence 05/10/2018 21:03 [facility] [place] TYPE: Emergency COMPLAINT: - SOB 04/18/2018 14:11 [facility] [place] TYPE: Emergency COMPLAINT: - SWOLLEN EXTREMITIES,NON INJURY DIAGNOSES: - Unspecified atrial fibrillation - snf (current) use of anticoagulants - Allergy status to sulfonamides status - Other correction (current) drug therapy - Heart failure, unspecified [...] - Chronic respiratory failure with hypoxia - snf (current) use of anticoagulants - Chronic atrial fibrillation - Acute on chronic diastolic (congestive) heart failure 07/17/2018 22:[address] [facility] [place] TYPE: Medical Surgical COMPLAINT: - SEPTIC SHOCK DIAGNOSES: - termite treater helper (current) use of anticoagulants - Chronic respiratory [...] - Chronic respiratory failure with hypoxia - termite treater helper (current) use of systemic steroids - Dependence on supplemental oxygen - Pneumonia due to other Gram-negative bacteria - Hypotension, unspecified - Bronchiectasis, uncomplicated - Rheumatoid arthritis, unspecified - Other malaise - Adverse effect of anticoagulants, initial encounter - Sepsis, unspecified organism - termite treater helper (current) use of systemic steroids - Chronic atrial fibrillation - Cachexia - Personal history of nicotine dependence - Sepsis due to Methicillin susceptible Staphylococcus aureus - Nonrheumatic aortic (valve) stenosis - termite treater helper (current) use of anticoagulants - Cachexia - [...] arthritis, unspecified - Unspecified atrial fibrillation - termite treater helper (current) use of inhaled steroids - 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
[2019-02-25] MEDS ORDERED: CALCIUM600 MG PO (13:49)
[2019-02-25] MEDS ORDERED: MUCINEX600 MG PO (13:50)
--- NOTE | 2019-02-26 16:04 | EKG ---
[facility] [address] [facility] [place] [address] Signed Atrial fibrillation Incomplete right bundle branch block ST \T\ T wave abnormality, consider anterolateral ischemia Prolonged QT Abnormal ECG When compared with ECG of 02-JAN-2019 12:20, ST no longer depressed in Anterior leads Nonspecific T wave abnormality has replaced inverted T waves in Inferior leads T wave inversion less evident in Lateral leads Confirmed by DERRICK ANTONIO MD ([id number]) on 02/26/2019 4:04:48 PM Electronically Signed By: DERRICK ANTONIO MD 02/26/19 1604 PATIENT NAME: ELODIA GONZALEZ JOSE M Electrocardiogram DATE OF : [birth year] PHYSICIAN: DERRICK ANTONIO MD REPORT #: [id number] REPORT IS CONFIDENTIAL AND NOT TO BE RELEASED WITHOUT AUTHORIZATION
== END 2019-02-25 17:04 | disposition home or self-care (01) ==
LOC: ED 13:21
DX: I50.9 Heart failure, unspecified (principal); J45.909 Unspecified asthma, uncomplicated; Z87.891 Personal history of nicotine dependence; Z90.49 Acquired absence of other specified parts of digestive tract; Z90.89 Acquired absence of other organs; Z88.2 Allergy status to sulfonamides; Z79.52 Long term (current) use of systemic steroids; Z79.899 Other long term (current) drug therapy
CPT/HCPCS: 71045; 80053; 83880; 84484; 85025; 85610; 93005; 93010; 94640; 99285-25

== ENCOUNTER 2019-03-01 09:22 | Inpatient (IN) | payer MEDICARE, OTHER ==
[~2019-03-01] VITALS: Ht 149.9 cm; Wt 43.3 kg
[~2019-03-01 09:22] MED LIST changes: +CALCIUM600 MG PO
--- OUTSIDE RECORDS SUMMARY | 2019-03-01 09:24 | XMS ---
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 Care History Medical/Surgical 05/11/2018 [facility] - PATIENT HAS AN APT WITH PCP DR AGUIRRE ON 03/01/19. - Patient is currently established with [facility]. If patient is seen in the ED during business hours. Please contact CHWs at [facility]. Care Recommendation: This patient has [...] providing care. E.D. VISIT COUNT (12 MO.) 10 [facility]. TOTAL 10 NOTE: Visits indicate total known visits. ED/UCC VISIT TRACKING (12 MO.) 03/01/2019 09:22 [facility] [place] TYPE: Emergency COMPLAINT: - LUQ PAIN 02/25/2019 13:21 [facility] [place] TYPE: Emergency COMPLAINT: - SOB DIAGNOSES: - Unspecified asthma, uncomplicated - Shortness of breath - Heart failure, unspecified - Personal history of nicotine dependence - Other penitentiary (current) drug therapy - nursing home (current) use of systemic steroids - Acquired absence of other organs - Allergy status to sulfonamides status - Acquired absence of other specified parts of digestive tract 01/02/2019 12:13 [facility] [place] TYPE: Emergency COMPLAINT: - SOB DIAGNOSES: - nursing home (current) use of anticoagulants - Acquired absence of other organs - Other chest pain - Unspecified atrial fibrillation - Unspecified asthma, uncomplicated - Personal history of nicotine dependence - exterminator termite (current) use of systemic steroids - Heart failure, unspecified - Acquired absence of other specified parts of digestive tract - Allergy status to sulfonamides status - Other salvage determiner (current) drug therapy 11/08/2018 14:31 [facility] [place] TYPE: Emergency COMPLAINT: - COUGH/WEAKNESS DIAGNOSES: - Other salvage determiner (current) drug therapy - Chronic obstructive pulmonary disease with (acute) exacerbation - nursing home (current) use of anticoagulants - Heart failure, unspecified - Cough - Allergy status to sulfonamides status 09/27/2018 12:40 [facility] [place] TYPE: Emergency COMPLAINT: - FEELING DOOM DIAGNOSES: - Personal history of nicotine dependence - Heart failure, unspecified - Encounter for observation for other suspected diseases and conditions ruled out - nursing home (current) use of anticoagulants - Chronic obstructive pulmonary disease, unspecified - Allergy status to sulfonamides status - exterminator termite (current) use of systemic steroids - Other penitentiary (current) drug therapy 09/13/2018 19:14 [facility] [place] TYPE: Emergency COMPLAINT: - SOB 07/17/2018 19:39 [facility] [place] TYPE: Emergency COMPLAINT: - SOB 07/12/2018 20:59 [facility] [place] TYPE: Emergency COMPLAINT: - ASTHMA DIAGNOSES: - Shortness of breath - Other salvage determiner (current) drug therapy - Allergy status to sulfonamides status - Unspecified asthma with (acute) exacerbation - Heart failure, unspecified - Personal history of nicotine dependence 05/10/2018 21:03 [facility] [place] [facility] [place] TYPE: Emergency COMPLAINT: - SOB 04/18/2018 14:11 [facility] [place] [facility] [place] TYPE: Emergency COMPLAINT: - SWOLLEN EXTREMITIES,NON INJURY DIAGNOSES: - Unspecified atrial fibrillation - nursing home (current) use of anticoagulants - Allergy status to sulfonamides status - Other penitentiary (current) drug therapy - Heart failure, unspecified [...] - Chronic respiratory failure with hypoxia - exterminator termite (current) use of anticoagulants - Chronic atrial fibrillation - Acute on chronic diastolic (congestive) heart failure 07/17/2018 22:26 [facility] [place] TYPE: Medical Surgical COMPLAINT: - SEPTIC SHOCK DIAGNOSES: - exterminator termite (current) use of anticoagulants - Chronic respiratory [...] - Chronic respiratory failure with hypoxia - nursing home (current) use of systemic steroids - Dependence on supplemental oxygen - Pneumonia due to other Gram-negative bacteria - Hypotension, unspecified - Bronchiectasis, uncomplicated - Rheumatoid arthritis, unspecified - Other malaise - Adverse effect of anticoagulants, initial encounter - Sepsis, unspecified organism - nursing home (current) use of systemic steroids - Chronic atrial fibrillation - Cachexia - Personal history of nicotine dependence - Sepsis due to Methicillin susceptible Staphylococcus aureus - Nonrheumatic aortic (valve) stenosis - nursing home (current) use of anticoagulants - Cachexia - [...] 21:[address] 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
--- NOTE | 2019-03-01 16:00 | NUR ---
PATIENT ADMITTED TO THE CCU ROOM 128. PATIENTS SON ABHILASH AND DAUGHTER TESS AT BEDSIDE. PATIENT IS AGREEABLE TO CURRENT PLAN OF CARE. PATIENTS BLOOD PRESSURES IN THE ED HAVE BEEN IN THE 70-80'S SYSTOLIC. ON ADMISSION BLOOD PRESSURES REMAIN ABOUT THE SAME. MD RAJPUT NOTIFIED. 200MLS URINE PRESENT WITH INSERTION OF CATHETER. WILL MONITOR HOURLY URINE OUTPUT. PATIENT IS NOTED TO BE WEAK AND CACHETIC. PATIENTS RR 26-32. SPO2 98% ON 3L NC. PATIENT IS ON 2.5L NC AT HOME. PATIENT NOTED TO HAVE SEVERAL SKIN ISSUES. CORN ON RIGHT 2ND TOE, LEFT HEEL, AND SORE NOTED ON RIGHT EAR. COCCYX NOTED TO BE RED,BUT BLANCHABLE. SPEECH THERAPY IN TO SEE PATIENT. CALL LIGHT IN REACH. WILL CONTINUE TO CLOSELY MONITOR.
[2019-03-01] MEDS ORDERED: METOLAZONE2.5 MG PO (17:09)
--- NOTE | 2019-03-01 17:15 | NUR ---
MD RAJPUT AWARE OF CONTINUED LOW BLOOD PRESSURES, PER REPORT PATIENTS BASELINE BP IS IN THE 80'S SYSTOLIC. PATIENTS URINE OUTPUT IS 7MLS IN THE LAST HOUR. NO NEW ORDERES AT THIS TIME. MD RAJPUT WOULD LIKE TO TALK TO PATIENTS FAMILY ABOUT PLAN OF CARE WHEN THEY ARRIVE. NO NEW ORDERS. WILL CONTINUE TO CLOSELY MONITOR.
--- NOTE | 2019-03-01 18:20 | NUR ---
SPOKE WITH MD RAJPUT IN [facility] [[email or web address] TO PATIENTS SWALLOW EVAL. PER MD RAJPUT, MAY ORDER PATIENT SOME MIONCED FOOD AND SEE HOW SHE TOLERATES IT. PATIENT IS AGREEABLE TO THIS PLAN. PATIENTS SON ABHILASH IS AT THE BEDSIDE. WILL CONTINUE TO CLOSELY MONITOR.
--- NOTE | 2019-03-01 19:21 | NUR ---
REPORT RECIEVED FROM CCU RN, CARE ASSUMED AT THIS TIME. PT EATING DINNER AT THIS TIME WITH SON ABHILASH AT BEDSIDE. CALL LIGHT WITHIN REACH NO NEEDS AT THIS TIME.
--- NOTE | 2019-03-01 19:32 | NUR ---
PT ATE 20 PERCENT OF HER DINNER. RESPIRATORY THERAPY IN ROOM AT THIS TIME GIVING PATIENT BREATHING TREATMENTS.
--- NOTE | 2019-03-01 20:12 | NUR ---
PT ASSESSMENT DONE AT THIS TIME. PT HAS WHEEZING AND COARSENESS THROUGHOUT ALL LUNG GARBER, WORSE ON THE LEFT. ASSISTED PT WITH MORGAN CARE. AN ALLEVAN DRESSING WAS PLACED ON HER REDDENED COCCYX. PT REMAINS ON HER BACK, WITH HOB ELEVATED TO 30 DEGREES FOR COMFORT WITH BREATHING. REMAINS ON 3 L NC. DISCUSSED PLAN OF CARE FOR THE NIGHT WITH PATIENT, ALL QUESTIONS ANSWERED. CALL LIGHT WITHIN REACH. NO FURTHER NEEDS AT THIS TIME.
--- NOTE | 2019-03-01 20:15 | NUR ---
MANUAL BLOOD PRESSURE ON PATIENT WAS 68/42. DR RAJPUT INFORMED, IN TO SEE PATIENT AT THIS TIME TO UPDATE ON PLAN OF CARE FOR THE NIGHT.
--- NOTE | 2019-03-01 21:00 | NUR ---
SWITCHED BLOOD PRESSURE CUFF TO A CHILD SIZE AND MOVED IT TO THE RIGHT ARM. BLOOD PRESSURE APPEAR TO BE MORE ACCURATE ON THIS SIZE
--- NOTE | 2019-03-01 22:00 | NUR ---
PT RESTING WITH EYES CLOSED, RESPIRATIONS EVEN AND UNLABORED. CALL LIGHT WITHIN REACH OF PATIENT
--- NOTE | 2019-03-01 23:00 | NUR ---
ASSISTED PT WITH REPOSITIONING IN BED AND ASSISTED PATIENT WITH DRINKING WATER. WARM BLANKET PROVIDED. CALL LIGHT WITHIN REACH, NO FURTHER NEEDS AT THIS TIME.
--- NOTE | 2019-03-02 00:05 | NUR ---
IN ROOM FOR ASSESSMENT, PATIENT COUGHING AT THIS TIME. HEART RATE UP TO 110 WHEN COUGHING. CRACKELS IN THE BASES OF BOTH LUNGS. SATURATIONS 99 PERCENT ON 3 L NC. ASSISTED PT WITH REPOSITIONING, BECAME SHORT OF BREATH WITH MOVEMENT. NO NEEDS AT THIS TIME, CALL LIGHT WITHIN REACH.
--- NOTE | 2019-03-02 01:59 | NUR ---
PT AT THIS TIME IS SLEEPING. HR IN THE LOW 100'S. OTHER V/S ARE WDL AT THIS TIME. URINE OUTPUT FOR THIS HOUR WAS 10ML.
--- NOTE | 2019-03-02 03:31 | NUR ---
IN ROOM FOR MEDICATION ADMINISTRATION AND ASSESSMENT. ASSISTED PATIENT WITH REPOSITIONING IN BED, PILLOWS PLACED UNDER BOTH HIPS AND HEALS. PT DENIES ANY PAIN. PT CONTINUES TO HAVE CRACKLES IN THE BASES OF HER LUNGS. RESPIRATIONS ARE EVEN BUT LABORED. PT GIVEN SIPS OF WATER AND THEN BACK TO RESTING. CALL LIGHT WITHIN REACH.
--- NOTE | 2019-03-02 05:06 | NUR ---
PT RESTING IN STRETCHER, RESPIRATIONS EVEN. OXYGEN SATURATIONS AT 97 PERCENT ON 3 L NC.
--- NOTE | 2019-03-02 07:30 | NUR ---
PATIENT SHIFT REPORT RECIEVED FROM RESEARCH EXECUTIVE RN. PER REPORT PATIENTS BLOOD PRESSURE IS BETTER THROUGHOUT THE NIGHT. PATIENT HAS SLEPT WELL THROUGH THE NIGHT. PATIENT DENIES ANY NEEDS AT THIS TIME. WILL CONTINUE TO CLOSELY MONITOR.
--- NOTE | 2019-03-02 09:00 | NUR ---
PT RESTING IN BED. REPOSITIONED FOR COMFORT SUPPORT. MEDICATIONS ADMINISTERED PER ORDERS. MAALOX GIVEN FOR ACID REFLUX. BREATH SOUNDS CLEAR AND PATIENT REMAINS ON 3L NC. PATIENT SPO2 98%. BOWEL TONES ACTIVE. PATIENTS BLOOD PRESSURES ARE IN THE 90'S SYSTOLIC. HR HAS INCREASED MORE THIS AM UP TO THE 120'S. METOPROLOL GIVEN PERR ORDERS. FAMILY AT BEDSIDE. WILL CONTINUE TO CLOSELY MONITOR.
--- NOTE | 2019-03-02 11:00 | NUR ---
PATIENT REPOSITIONED IN BED. OFFERED A BED BATH AND PATIENT WOULD LIKE TO TRY LATER. DOSE OF DILTIAZEM GIVEN PER ORDERS FOR PATIENTS HR. PATIENT DENIES PALPITATIONS AND SOB. MORGAN REMAINS IN PLACE. YELLOW/CONCENTRATED URINE NOTED. LUNCH ORDERED. WILL CONTINUE TO CLOSELY MONITOR.
--- NOTE | 2019-03-02 13:10 | EKG ---
[facility] [address] [facility] [place], [place] [address] Signed Atrial fibrillation with rapid ventricular response Rightward axis Incomplete right bundle branch block Nonspecific ST and T wave abnormality Abnormal ECG When compared with ECG of 25-FEB-2019 13:24, T wave inversion no longer evident in Lateral leads Confirmed by LATANYA RAJPUT DO ([id number]) on 03/02/2019 1:10:38 PM Electronically Signed By: LATANYA RAJPUT DO 03/02/19 1310 PATIENT NAME: ELODIA GONZALEZ JOSE M Electrocardiogram DATE OF : [birth year] PHYSICIAN: LATANYA RAJPUT DO REPORT #: [id number] REPORT IS CONFIDENTIAL AND NOT TO BE RELEASED WITHOUT AUTHORIZATION
--- NOTE | 2019-03-02 13:30 | NUR ---
PATIENT RESTING IN BED. PATIENT ATE APPROX 25% OF HER MEAL. WILL CONTINUE TO ENCOURAGE ENSURE SHAKES THROUGHOUT THE DAY. PATIENT HAS VERY MINIMAL APPETITE. PATIENT VITALS REMAIN STABLE. PATIENT DENIES ANY NEEDS AT THIS TIME. WILL CONTINUE TO MONITOR.
--- NOTE | 2019-03-02 15:00 | NUR ---
MEDICATIONS ADMINISTERED. PATIENT TOLERATES MEDICATIONS WELL USING APPLE SAUCE. PATIENT REPOSITIONED FOR COMFORT. PATIENT FAMILY REMAINS AT BEDSIDE THROUGHOUT THE DAY. NO OTHER ISSUES AT THIS TIME WILL CONTINUE TO CLOSELY MONITOR.
--- NOTE | 2019-03-02 17:17 | NUR ---
PATIENT BED BATH PROVIDED. ALL LINEN CHANGED. DRESSINGS REAPPLIED TO PATIENTS FEET PER REQUEST. PATIENT TOELRATED WELL. PATIENT IS FLOATED ON PILLOWS FOR COMFORT. FOAM PAD IN PLACE ON COCCYX. HEEL PROTECTORS IN PLACE. PATIENT VITALS REMAIN STABLE. MD TO ADJUST MEDICATIONS. FAMILY AT BEDSIDE AND MD IN TO SPEAK WITH FAMILY REGAURDING CONTINUED PLAN OF CARE. CALL LIGHT IN REACH. DINNER AT BEDSIDE. WILL CONTINUE TO CLOSELY MONITOR.
--- NOTE | 2019-03-02 19:35 | NUR ---
REPORT RECEIVED FROM DAY SHIFT RN. FAMILY HAS BEEN IN VISITING BUT LEAVING NOW. PT STATES SHE NEEDS TO HAVE BOWEL MOVEMENT, UP TO BSC WITH 2PERSON ASSIST AND PT HAD LARGE FORMED STOOL, HR UP TO 120'S WHILE UP OTHERWISE TOLERATED WELL ALTHOUGH SLIGHTLY WEAK. BACK TO BED, FLOATED ON PILLOWS AND ASSESSMENT DONE. PT STATES SHE FEELS SLIGHTLY SOB WITH THE ACTIVITY ALTHOUGH O2 SATS STAY IN UPPER 90'S ON 2L/O2. PTS HR QUICKLY BACK DOWN TO 110 WHERE IT WAS BEFORE, AFTER GETTING BACK IN BED. DENIES PAIN, ALERT AND ORIENTED, DENIES PAIN OR OTHER NEEDS. CALL LIGHT IN HAND.
--- NOTE | 2019-03-02 19:54 | NUR ---
RT IN TO DO BREATHING TX.
--- NOTE | 2019-03-02 22:47 | NUR ---
PT CONTINUES TO SLEEP, HR 100'S, RR 28 PT ON 2L/O2 99%.
--- NOTE | 2019-03-03 00:30 | NUR ---
PT RESTFULL, EYES CLOSED AND RESP EVEN AND UNLABORED.
--- NOTE | 2019-03-03 02:00 | NUR ---
PT REPOSITIONED, ASSESSMEN DONE AND PT GIVEN IV STEROIDS. DENIES PAIN/NEEDS [place] SHE STATES SHE HAS NOT BEEN SLEEPING WELL.HR DOWN O 90'S, RR 20'S.
--- NOTE | 2019-03-03 03:30 | NUR ---
PT REPOSITIONED ONTO RIGHT SIDE, DENIES NEEDS OR PAIN, ASSESSMENT UNCHANGED FROM PREVIOUS.
--- NOTE | 2019-03-03 07:30 | NUR ---
VICENTE SHIFT REPORT RECIEVED FROM DEBT AND BUDGET COUNSELOR RN. PATIENT RESTING IN BED AT THIS TIME. CALL LIGHT IN REACH. PATIENT DENIES ANY NEEDS AT THIS TIME. WILL CONTINUE TO CLOSELY MONITOR.
--- NOTE | 2019-03-03 08:30 | NUR ---
PATIENT RESTING IN BED. REPOSITIONED WITH PILLOW SUPPORT. PATIENT TOLERATED WELL. ASSESSMENT COMPLETED. BREATH SOUNDS CLEAR AND PATIENT REMAINS ON2L NC. PATIENT HR 100-115. BP 100'S SYSTOLIC. MORGAN HAS CLEAR YELLOW/ORANGE URINE PRESENT. BREAKFAST ORDERED. NO OTHER NEEDS AT THSI TIME. CALL LIGHT IN REACH.
--- NOTE | 2019-03-03 10:30 | NUR ---
PATIENT RESTING IN BED WITH FAMILY AT BEDSIDE. BREAKFAST FINISHED. PATIENT ATE APPROX 75% OF HER MEAL THIS AM. ASSISTED PATIENT WITH AM CARES. NEW WARM BLANKET PROVIDED. MEDICATIONS ADMINISTERED. CALL LIGHT WITHIN REACH. PATIENT DENIED ANY OTHER NEEDS AT THIS TIME. WILL CONTINUE TO CLOSELY MONITOR.
--- NOTE | 2019-03-03 12:15 | NUR ---
PATIENT RESTING IN BED. LUNCH ORDERED. CHAIR PREPARED. PHYSICAL THERAPY STOPPED BY TO SEE IF SHE COULD WORK WITH THE PATIENT. WALKER IN ROOM. WILL ASSIST PATIENT UP TO THE CHAIR BEFORE LUNCH COMES.
--- NOTE | 2019-03-03 12:38 | NUR ---
ASSISTED PATIENT UP TO THE CHAIR. PATIENT TOLERATED WELL WITH A ONE PERSON ASSIST. LUNCH PROVIDED. FAMILY AT BEDSIDE. WILL CONTINUE TO CLOSELY MONITOR.
--- NOTE | 2019-03-03 14:00 | NUR ---
MD RAJPUT IN TO SEE PATIENT. PATIENT WILL TRANSFER OVER TO [facility]. PATIENT AND FAMILY AGREEABLE TO PLAN OF CARE. WILMA MORGAN BEFORE TRANSFER. PATIENT FINISHED LUNCH. WILL CONTINUE TO CLOSELY MONITOR.
--- NOTE | 2019-03-03 14:15 | NUR ---
REPORT RECEIVED FROM MIGUEL YAO. PT SATTING IN MID TO HIGH 90'S ON 2.5LPNC. PER MIGUEL YAO PT'S HR HAS BEEN RUNNING 90'S TO 110'S AND HER SYSTOLIC BP'S HAVE BEEN TRENDING IN 90'S TO 100'S AND IS AWARE OF THIS TREND. PT ARRIVED TO ROOM 113 ALERT AND ORIENTED X4. PT DENIES SOB WITH O2 AT 2.5LPNC. PT ALSO DENIES PAIN NAUSEA OR OTHER SX'S. PT STATES SHE IS COMFORTABLE. ASSESSMENT COMPLETED. CALL LIGHT AND H2O IN REACH. NO FURTHER NEEDS OR CONCERNS VOICED.
--- NOTE | 2019-03-03 14:15 | NUR ---
PATIENT TRANSFERED TO ROOM 113. FAMILY AT BEDSIDE. ALL BELONGINGS SENT WITH PATIENT. GAVE REPORT TO ASHWIN RIVERA. UNABLE TO GIVE METOPROLOL AT THIS TIME D/T PHARMACY NOT VERIFING MEDICATION AT THIS TIME. WILL CALL PHARMACY AND REQUEST VERIFICATION. PATIENTS HR IS CURRENTLY IN THE 90'S. NO OTHER ISSUES AT THIS TIME. NO FURTHER QUESTIONS. WILL CONTINUE TO CLOSELY MONITOR.
--- NOTE | 2019-03-03 16:28 | NUR ---
IN TO SEE PATIENT, PT RESTING IN SEMIFOWLERS POSITION IN BED. SCHEDULED PO COUMADIN 1.25MG ADMINISTERED PO IN APPLE SAUCE -SEE EMAR. CALL LIGHT AND H2O IN REACH. PT DENIES FURTHER NEEDS/CONCERNS AND STATES SHE IS COMFORTABLE.
--- NOTE | 2019-03-03 17:23 | NUR ---
PT SITTING UP IN BED ALERT AND ORIENTED. PT EATING DINNER. ICE CREAM OPEN PER PT REQUEST AND PM HOME MED ADMINISTERED -SEE EMAR. CALL LIGHT AND H2O IN REACH.
--- NOTE | 2019-03-03 17:41 | NUR ---
PATIENT SITTING UP IN BED. VITAL SIGNS AND I&O DONE. PATIENT DID NOT VOID DURING THIS PERIOD. RN NOTIFIED. CALL LIGHT WITHIN REACH. NO OTHER NEEDS AT THIS TIME
--- NOTE | 2019-03-03 19:15 | NUR ---
CHARGE NURSE REPORT RECEIVED FROM MARIUSZ. PT IN BED NO NEEDS.
--- NOTE | 2019-03-03 19:29 | NUR ---
REPORT RECEIVED, PT RESTING IN BED, WATCHING TV, PT DENIES ANY NEEDS AT THIS TIME, CALL LIGHT WITHIN REACH. FALL PRECAUTIONS IN PLACE, ON 2.5LNC, NO C/O SOB/CP.
--- NOTE | 2019-03-03 20:36 | NUR ---
DR. RAJPUT TO THE FLOOR, DISCUSSED THE PT'S BP OF 106/50 IN REGARDS TO THE PT'S EVENING DOSE OF DILTIAZEM, RECEIVED VERBAL ORDER TO ADMINISTER THE DILTIAZEM TO THE PT, ALSO DISCUSSED PT'S URINE OUTPUT, DR. RAJPUT VERBALIZED THAT LONG THE PT CONTINUES TO VOID HE IS NOT CONCERNED WITH UO. NO OTHER ORDERS AT THIS TIME. THIS RN TO PT'S ROOM TO ADMIN EVENING MEDS.
--- NOTE | 2019-03-03 20:39 | NUR ---
VS and I&Os complete per MIGUEL Gracia. Patient requested some lip balm. She was very pleasant.
--- NOTE | 2019-03-03 20:48 | NUR ---
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 CHURCHILL HAS BEEN TREATING, DRESSING C/D/I, SKIN IS FRAGILE, DRY. LS CLEAR, BT ACTIVE. PT DENEIS ANY NEEDS AT THIS TIME. IV FLUSHES WELL. SL. CALL LIGHT WITHIN REACH. FALL PRECAUTIONS IN PLACE.
--- NOTE | 2019-03-03 23:36 | NUR ---
PT RESTING IN BED, EYES CLOSED, BREATHS EVEN, UNLABORED, NO NEEDS AT THIS TIME, CALL LIGHT WITHIN REACH. FALL PRECAUTIONS IN PLACE. PT ON 2.5LNC, NO C/O SOB/CP. HOB ELEVATED.
--- NOTE | 2019-03-04 02:00 | NUR ---
PT RESTING IN BED, EYES CLOSED, BREATHS EVEN, UNLABORED, NO NEEDS AT THIS TIME, CALL LIGHT WITHIN REACH. FALL PRECAUTIONS IN PLACE. NO C/O SOB/CP ON 2LNC.
--- NOTE | 2019-03-04 04:36 | NUR ---
PT AOX4, APPROPRIATE, PT IS A 1-2 PERSON ASSIST PIVOT TO BSC, PT ON 2.5LNC, NO C/O SOB/CP, NO C/O PAIN, ALLEVYN TO LEFT HEEL RELATED TO PRESSURE SORE FROM OUTPATIENT, ENCOURAGE REPOSITIONING, ASPIRATION PRECAUTIONS, HOB ELEVATED, PT PREFERS THICKENER IN PLAIN WATER, VSS. USES CALL LIGHT APPROPRIATELY, IV SL, FLUSHES WELL. DAILY WEIGHT,
--- NOTE | 2019-03-04 07:00 | NUR ---
PT BOOSTED IN BED WITH ASSISTANCE FROM ROJELIO, PT REPOSITIONED PER REQUEST, NO OTHER NEEDS AT THIS TIME, CALL LIGHT WITHIN REACH.
--- NOTE | 2019-03-04 07:15 | NUR ---
PT RESTING IN SEMI FOWLERS POSITION IN BED. 2.5LPNC WITH RR EVEN AND UNLABORED. EYES CLOSED AND RESPIRATIONS EVEN AND UNLABORED. CALL LIGHT AND H2O IN REACH. PT APPEARS TO BE SLEEPING COMFORTABLY. BEDSIDE REPORT RECEIVED FROM MIGUEL MCKEON.
--- NOTE | 2019-03-04 08:30 | NUR ---
PT SITTING UP IN HIGH FOWLERS POSITION IN BED EATING BREAKFAST. AM VS'S TAKEN, BP SLIGHTLY LOW, MD NOTIFIED AND PER MD INSTRUCTION METOPROLOL WAS STILL ADMINISTERED. PT ASSESSMENT COMPLETED. CALL LIGHT AND H2O IN REACH. NO FURTHER NEEDS OR CONCERNS VOICED.
--- NOTE | 2019-03-04 08:39 | NUR ---
PATIENT UP IN BED, PATIENT IS EATING BREAKFAST, PATIENT ORDERED ORANGES AND IS CURRENTLY STILL WAITING FOR THEM
--- NOTE | 2019-03-04 09:47 | NUR ---
YAMILETH STATES SHE WILL SIT UP IN THE CHAIR FOR LUNCH, SHE WANTS TO TAKE A NAP RIGHT NOW
--- NOTE | 2019-03-04 10:39 | NUR ---
PT SITTING UP IN HIGH FOWLERS POSITION INBED, LIGHTS OFF PER PT REQUEST. PT DECLINED WHEN I OFFERED TO ASSIST HER UP TO CHAIR. PT STATES "NO, I'M FINE HERE FOR NOW MAYBE I'LL GET UP TO THE CHAIR FOR LUNCH. H2O AND CALL LIGHT IN REACH. PT DENIES HAVING ANY FURTHER NEEDS OR CONCERNS.
--- NOTE | 2019-03-04 13:20 | NUR ---
PT SITTING UP IN HIGH FOWLERS POSITION IN BED, ALERT AND ORIENTED X4. ASSESSMENT COMPLETED. CALL LIGHTNAD H2O IN REACH. NO NEEDS/CONCERNS VOICED.
--- NOTE | 2019-03-04 16:37 | NUR ---
PT ASSISTED UP TO BSC AND THEN TO CHAIR PER PT REQUEST. WARM BLANKET ALSO PROVIDED. CALL LIGHT AND H2O IN REACH. PT DENIES FURTHER NEEDS/CONCERNS. PM MEDS ALSO ADMINISTERED.
--- NOTE | 2019-03-04 17:49 | NUR ---
PT SITTING UP IN CHAIR EATING DINNER. CALL LIGHT AND H2O IN REACH. NO NEEDS/CONCERNS VOICED.
--- NOTE | 2019-03-04 19:29 | NUR ---
REPORT RECEIVED, PT RESTING IN BED, NO NEEDS AT THIS TIME, ON 2LNC, NO C/O SOB/CP, CALL LIGHT WITHIN REACH. FALL PRECAUTIONS IN PLACE. HEEL PROTECTORS ON.
--- NOTE | 2019-03-04 20:18 | NUR ---
ROUNDED CHARGE. PATIENT IS RESTING IN BED. RT PRESENT IN ROOM. PATIENT DENIES ANY COMMENTS, QUESTIONS, OR CONCERNS. FRESH ICE WATER PROVIDED. CALL LIGHT IN REACH. RT REMAINS IN ROOM.
--- NOTE | 2019-03-04 20:53 | NUR ---
IN ROOM TO ADMIN EVENING MEDS, PT'S BP NOTED TO BE 101/48, HR OF 92, DR. ANTONIO NOTIFIED OF PT'S VITALS IN REGARDS TO ORDERED CARDIZEM, RECEIVED ORDER TO CONTINUE WITH ADMINISTRATION OF CARDIZEM, TORB.
--- NOTE | 2019-03-04 23:00 | NUR ---
PT RESTING IN BED, EYES CLOSED, ON 2LNC, NO NEEDS AT THIS TIME, CALL LIGHT WITHIN REACH. FALL PRECAUTIONS IN PLACE.
--- NOTE | 2019-03-05 00:47 | NUR ---
PT RESTING IN BED, EYES CLOSED, BREATHS EVEN, UNLABORED, ON 2LNC, NO NEEDS AT THIS TIME, CALL LIGHT WITHIN REACH. FALL PRECAUTIONS IN PLACE.
--- NOTE | 2019-03-05 03:36 | NUR ---
PT RESTING IN BED, EYES CLOSED, BREATHS EVEN, UNLABORED, NO NEEDS AT THIS TIME, ON 2LNC, CALL LIGHT WITHIN REACH.
--- NOTE | 2019-03-05 04:54 | NUR ---
PT CALL LIGHT ON. RESPONDED TO NEED FOR TOILETING. 1 PERSON TRANSFER TO BEDSIDE COMMODE. PT COMPLAINS OF A SHARP PAIN UNDER HER LEFT RIBS. PT TRANFERRED BACK TO BED. PAIN RATED 10/10 WHEN THE PAIN IS SHARP AND 7/10 AT REST. PT REPOSITIONED FOR COMFORT. PRN TYLENOL GIVEN PER ORDER.CALL LIGHT IN REACH.
--- NOTE | 2019-03-05 05:51 | NUR ---
PT SLEPT MOST OF SHIFT. UP TO COMMODE X2. UO-QS. VSS. COMPLAINED OF SHARP PAIN IN ULQ. PRN TYLENOL GIVEN FOR PAIN PER EMAR. MEDS GIVEN WITH APPLESAUCE, SINGLE PILL AT A TIME. USES CALL LIGHT APPROPRIATELY. 2LPM NC. 1-2 PERSON PIVOT ASSIST TO BEDSIDE COMMODE.
--- NOTE | 2019-03-05 07:32 | NUR ---
PT APPEARS TO BE SLEEPING AT THIS TIME, RESP EVEN AND NON LABORED. PT DENIES PAIN AT THIS TIME. PERSONAL SUPPLIES AND CALL LIGHT.
--- NOTE | 2019-03-05 08:30 | NUR ---
PATIENT SITTING UP EATING BREAKFAST WITH DAUGHTER IN ROOM. CALENDER RUNNER ASSISTED WITH WASHING PATIENT'S HANDS AND FACE. PATIENT REFUSED TO SIT UP IN CHAIR SHE STATES THAT SHE DOESN'T LIKE OUR CHAIR. TALKED TO PATIENT ABOUT WASHING UP AFTER SHE'S DONE EATING BREAKFAST. CALL BUTTON IN REACH. NO OTHER NEEDS AT THIS TIME.
--- NOTE | 2019-03-05 09:01 | NUR ---
PATIENT IN BED EATING FRUIT. ADMINISTERED MORNING MEDICATIONS. VS STABLE. CALL LIGHT WITHIN REACH. NO OTHER NEEDS AT THIS TIME.
[2019-03-05] MEDS ORDERED: IPRAT-ALBUT 0.5-3 ML INH (11:27)
[2019-03-05] MEDS ORDERED: METOPROLOL SUC100 MG PO (11:28)
[2019-03-05] MEDS ORDERED: DILTIAZEM 24HR120 M1 PO (11:29)
[2019-03-05] MEDS ORDERED: POTASSIUM CHLO10 ME1 PO (11:31)
--- NOTE | 2019-03-05 11:31 | NUR ---
AFTER TALKING WITH THE PT THIS AM AND HER TELLING ME THAT SHE FEELS SHE NEEDS TO GO TO [facility] FOR THE EXTRA TIME IT IS GOING TO TAKE HER TO GET STRONG ENOUGH TO RETURN HOME EVENTUALLY. SO AFTER OUR DISCUSSION THIS AM I FAXED CHART NOTES INCLUDING FACE SHEET, ER NOTES AND SUMMARY, H AND P, PROG NOTES, PT AND OT EVAL AND NOTES TO [facility] AND RECEIVED FAX CONFIRMATION.
--- NOTE | 2019-03-05 13:40 | NUR ---
RCEIVED A PHONE CALL FROM JEAN CLAUDE AT [facility] THAT THEY WILL TAKE HER THIS AFTERNOON IF I COULD FAX THE ORDERS, I FAXED THE ORDERS AND THE PASRR TO [facility]. RECEIVED A FAX CONFIRMATION OF THIS.
--- NOTE | 2019-03-05 14:40 | NUR ---
JOSE CARLOS FROM [facility] HERE TO SHIFT SUPERINTENDENT CAUSTIC CRESYLATE PT. AND THE NURSE FROM [facility] IS CALLING AND WANTING TO GIVE REPORT AT THE SAME TIME. STAFF ASSISTED THE PT IN GETTING READY TO GO TO [facility].
== END 2019-03-05 14:30 | DRG 312 ==
LOC: ED 09:22 → CCU 09:23 → MS 03-03 13:50
PROVIDERS: ADMIT Student in an Organized Health Care Education/Training Program
DX: I95.2 Hypotension due to drugs (principal); E43 Unspecified severe protein-calorie malnutrition; I50.32 Chronic diastolic (congestive) heart failure; J96.11 Chronic respiratory failure with hypoxia; Z68.1 Body mass index [BMI] 19.9 or less, adult; T46.1X5A Adverse effect of calcium-channel blockers, initial encounter; T44.7X5A Adverse effect of beta-adrenoreceptor antagonists, initial encounter; I35.0 Nonrheumatic aortic (valve) stenosis; J47.9 Bronchiectasis, uncomplicated; I48.2 Chronic atrial fibrillation; R13.12 Dysphagia, oropharyngeal phase; M06.80 Other specified rheumatoid arthritis, unspecified site; Z66 Do not resuscitate; Z88.2 Allergy status to sulfonamides; Z79.01 Long term (current) use of anticoagulants; Z79.51 Long term (current) use of inhaled steroids; Z79.52 Long term (current) use of systemic steroids; Z79.899 Other long term (current) drug therapy
CPT/HCPCS: 36415; 51702; 71045; 80048; 80053; 81001; 82565; 82803; 83605; 83735; 83880; 84484; 84520; 85025; 85610; 85651; 85730; 92610; 93005; 93010; 94640; 94667; 94668; 94760; 97162; 97166; 99285-25; J1720; J1885; J7040; J7120; J7512

== ENCOUNTER 2019-04-27 09:01 | Emergency (ER) | payer MEDICARE ==
[~2019-04-27] VITALS: Ht 149.9 cm; Wt 43.3 kg
[~2019-04-27 09:01] MED LIST changes: +DILTIAZEM 24HR120 M1 PO
--- OUTSIDE RECORDS SUMMARY | 2019-04-27 09:04 | XMS ---
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 Care History Medical/Surgical 05/11/2018 [facility] - PATIENT HAS AN APT WITH PCP DR AGUIRRE ON 03/01/19. - Patient is currently established with [facility]. If patient is seen in the ED during business hours. Please contact CHWs at [facility]. Care Recommendation: This patient [...] care. E.D. VISIT COUNT (12 MO.) 10 [facility]. TOTAL 10 NOTE: Visits indicate total known visits. ED/UCC VISIT TRACKING (12 MO.) 04/27/2019 09:01 [facility] [place] TYPE: Emergency COMPLAINT: - SOB, EXTREMITY SWELLING 03/01/2019 09:22 [facility] [place] TYPE: Emergency COMPLAINT: - LUQ PAIN 02/25/2019 13:21 [facility] [place] TYPE: Emergency COMPLAINT: - SOB DIAGNOSES: - Unspecified asthma, uncomplicated - Shortness of breath - Heart failure, unspecified - Personal history of nicotine dependence - Other chcf (current) drug therapy - intermodal dispatcher (current) use of systemic steroids - Acquired absence of other organs - Allergy status to sulfonamides status - Acquired absence of other specified parts of digestive tract 01/02/2019 12:13 [facility] [place] TYPE: Emergency COMPLAINT: - SOB DIAGNOSES: - intermodal dispatcher (current) use of anticoagulants - Acquired absence of other organs - Other chest pain - Unspecified atrial fibrillation - Unspecified asthma, uncomplicated - Personal history of nicotine dependence - intermodal dispatcher (current) use of systemic steroids - Heart failure, unspecified - Acquired absence of other specified parts of digestive tract - Allergy status to sulfonamides status - Other chcf (current) drug therapy 11/08/2018 14:31 [facility] [place] TYPE: Emergency COMPLAINT: - COUGH/WEAKNESS DIAGNOSES: - Other chcf (current) drug therapy - Chronic obstructive pulmonary disease w (acute) exacerbation - intermodal dispatcher (current) use of anticoagulants - Heart failure, unspecified - Cough - Allergy status to sulfonamides status 09/27/2018 12:40 [facility] [place] TYPE: Emergency COMPLAINT: - FEELING DOOM DIAGNOSES: - Personal history of nicotine dependence - Heart failure, unspecified - Encntr for obs for oth suspected diseases and cond ruled out - CHCF (current) use of anticoagulants - Chronic obstructive pulmonary disease, unspecified - Allergy status to sulfonamides status - CHCF (current) use of systemic steroids - Other chcf (current) drug therapy 09/13/2018 19:14 [facility] [place] TYPE: Emergency COMPLAINT: - SOB 07/17/2018 19:39 [facility] TYPE: Emergency COMPLAINT: - SOB 07/12/2018 20:59 [facility] TYPE: Emergency COMPLAINT: - ASTHMA DIAGNOSES: - Shortness of breath - Other termite control servicer (current) drug therapy - Allergy status to sulfonamides status - Unspecified asthma with (acute) exacerbation - Heart failure, unspecified - Personal history of nicotine dependence 05/10/2018 21:03 [facility] TYPE: Emergency COMPLAINT: - SOB INPATIENT VISIT TRACKING (12 MO.) 03/02/2019 12:06 [facility] TYPE: Medical Surgical COMPLAINT: - HEART FAILURE DIAGNOSES: - Allergy status to sulfonamides status - CHCF (current) use of inhaled steroids - intermodal dispatcher (current) use of systemic steroids - Bronchiectasis, uncomplicated - Body mass index (BMI) 19.9 or less, adult - Do not resuscitate - Nonrheumatic aortic (valve) stenosis - CHCF (current) use of systemic steroids - Other specified rheumatoid arthritis, unspecified site - Bronchiectasis, uncomplicated - Allergy status to sulfonamides status - CHCF (current) use of anticoagulants - intermodal dispatcher (current) use of anticoagulants - Chronic atrial fibrillation - Adverse effect of calcium-channel blockers, init encntr - Dysphagia, oropharyngeal phase - Other chcf (current) drug therapy - Other specified rheumatoid arthritis, unspecified site - Hypotension due to drugs - Adverse effect of calcium-channel blockers, init encntr - Do not resuscitate - Chronic respiratory failure with hypoxia - Other termite control servicer (current) drug therapy - Unspecified severe protein-calorie malnutrition - Chronic diastolic (congestive) heart failure - Hypotension due to drugs - Chronic respiratory failure with hypoxia - Unspecified severe protein-calorie malnutrition - Chronic atrial fibrillation - Hypotension, unspecified - Body mass index (BMI) 19.9 or less, adult - Adverse effect of beta-adrenoreceptor antagonists, init - intermodal dispatcher (current) use of inhaled steroids - Chronic diastolic (congestive) heart failure - Adverse effect of beta-adrenoreceptor antagonists, init - Dysphagia, oropharyngeal phase - Nonrheumatic aortic (valve) stenosis 09/13/2018 23:15 [facility] [place] TYPE: Medical Surgical COMPLAINT: - DECOMPENSATED HEART FAILURE DIAGNOSES: - Dependence on supplemental oxygen - Chronic obstructive pulmonary disease, unspecified - Bronchiectasis, uncomplicated - Rheumatoid arthritis, unspecified - Dysphagia, oropharyngeal phase - Hypertensive heart disease with heart failure - Nonrheumatic aortic (valve) stenosis - Chronic respiratory failure with hypoxia - intermodal dispatcher (current) use of anticoagulants - Chronic atrial fibrillation - Acute on chronic diastolic (congestive) heart failure 07/17/2018 22:26 [facility] [place] TYPE: Medical Surgical COMPLAINT: - SEPTIC SHOCK DIAGNOSES: - intermodal dispatcher (current) use of anticoagulants - Chronic respiratory failure with hypoxia - Hypotension, unspecified - Pneumonia due to other Gram-negative bacteria - Other disorders of bilirubin metabolism - Hemorrhagic disord d/t extrinsic circulating anticoagulants - Nonrheumatic aortic (valve) stenosis - Hemorrhagic disord d/t extrinsic circulating anticoagulants - Dysphagia, oropharyngeal phase - Do not resuscitate - Do not resuscitate - Bronchiectasis, uncomplicated - Other disorders of bilirubin metabolism - Chronic respiratory failure with hypoxia - CHCF (current) use of systemic steroids - Dependence on supplemental oxygen - Pneumonia due to other Gram-negative bacteria - Hypotension, unspecified - Bronchiectasis, uncomplicated - Rheumatoid arthritis, unspecified - Other malaise - Adverse effect of anticoagulants, initial encounter - Sepsis, unspecified organism Sepsis, u - CHCF (current) use of systemic steroids - Chronic atrial fibrillation - Cachexia - Personal history of nicotine dependence - Sepsis due to Methicillin susceptible Staphylococcus aureus Sepsis du - Nonrheumatic aortic (valve) stenosis - CHCF (current) use of anticoagulants - Cachexia - Rheumatoid arthritis, unspecified - Severe sepsis with septic shock - Chronic atrial fibrillation - Dysphagia, oropharyngeal phase - Chr obstructive pulmon disease with (acute) lower resp infct - Chr obstructive pulmon disease with (acute) lower resp infct - Other malaise - Adverse effect of anticoagulants, initial encounter - Sepsis due to Methicillin susceptible Staphylococcus aureus Sepsis du - Dependence on supplemental oxygen - Acute on chronic diastolic (congestive) heart failure - Hypertensive heart disease with heart failure - Severe sepsis with septic shock - Personal history of nicotine dependence - Hypertensive heart disease with heart failure - Sepsis due to Serratia Sepsis du - Acute on chronic diastolic (congestive) heart failure - Sepsis due to Serratia Sepsis du 05/10/2018 21:04 [facility] TYPE: Observation COMPLAINT: - ACUTE ON CHRONIC DIASTOLIC DIAGNOSES: - Rheumatoid arthritis, unspecified - Unspecified atrial fibrillation - CHCF (current) use of inhaled steroids - 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
[2019-04-27] MEDS ORDERED: BACLOFEN10 MG PO (11:21)
--- NOTE | 2019-04-27 13:30 | NUR ---
Met with family to discuss plan. They decline to return to [place], pt was dcd from there today. They would like pt to go home on hospice. Called Hospice and they are unable to see until next week. Called [facility] hospice and they will send a nurse today to give information. Family would like to take pt. home with 02, (they already have at home), wll need other equipement. There nurse will arrive by 3-3:30 pm.
--- NOTE | 2019-04-27 14:33 | NUR ---
I VISITED WITH PT IN ED SHE WAS KNOWN TO ONE OF OUR STAFF MEMBERS. HER FOOD COUNTER WORKER IS OUT OF TOWN BUT I HAVE CALLED HIM REQUESTING A CALL BACK. THE FAMILY IS IN CLOSE TOUCH WITH HIM. I PRAYED WITH THE PT AND HER FAMILY AT THE TIME OF MY VISIT WITH THEM.
--- NOTE | 2019-04-27 16:00 | NUR ---
Met with Frankie from [facility]. They have agreed to accept to Hospice. Family would now like to return pt to [facility] for 5-7 days for comfort care while family can arrange their house. In and spoke with family they do not feel they can transport by car. ER will arrange wc van transport, van will stop and berry picker machine operator pt's wc, and o2 tank. Justine from [facility] will fax med list for Dr. Martinez to review, comfort orders have been written. [facility] is ready for pt to return.
--- NOTE | 2019-04-28 06:17 | EKG ---
[facility] [address] [place] [address] Signed Atrial fibrillation with rapid ventricular response T wave abnormality, consider lateral ischemia Abnormal ECG When compared with ECG of 01-MAR-2019 09:55, ST no longer depressed in Lateral leads T wave inversion now evident in Lateral leads Confirmed by DERRICK ANTONIO MD ([id number]) on 04/28/2019 6:17:46 AM Electronically Signed By: DERRICK ANTONIO MD 04/28/19 0617 PATIENT NAME: ELODIA GONZALEZ JOSE M Electrocardiogram DATE OF : [birth year] PHYSICIAN: DERRICK ANTONIO MD REPORT #: [id number] REPORT IS CONFIDENTIAL AND NOT TO BE RELEASED WITHOUT AUTHORIZATION
== END 2019-04-27 17:39 | disposition home or self-care (01) ==
LOC: ED 09:01
DX: I35.0 Nonrheumatic aortic (valve) stenosis (principal); I50.84 End stage heart failure; J44.9 Chronic obstructive pulmonary disease, unspecified; I48.91 Unspecified atrial fibrillation; Z87.891 Personal history of nicotine dependence; Z88.2 Allergy status to sulfonamides; Z79.899 Other long term (current) drug therapy; Z79.01 Long term (current) use of anticoagulants
CPT/HCPCS: 51702; 71045; 80053; 83880; 84484; 85025; 85610; 93005; 93010; 99285-25